=== PATIENT | female | born 1955 | race Caucasian/White ===

== ENCOUNTER 2021-05-01 09:23 | Outpatient (CLI) | payer OTHER, SELFPAY ==
[2021-05-01 19:55] LABS: Hematocrit 42.2 % (37.0-47.0); Hemoglobin 13.5 g/dL (12.0-15.0); Mean Corpuscular Hemoglobin 29.8 pg (26-34); Mean Corpuscular Volume 93.2 fl (80-100); Mean Platelet Volume 9.5 fl (7.4-10.4); Platelet Count Result 363 k/mm3 (150-375); Red Blood Count 4.53 M/mm3 (4.2-5.4); Red Cell Distribution Width 13.5 % (11.5-14.5); White Blood Count 7.9 K/mm3 (4.5-10.0)
[2021-05-01 20:17] LABS: Alanine Aminotransferase 17 U/L (4-35); Albumin Level 4.5 g/dL (3.5-5.1); Alkaline Phosphatase 90 U/L (38-126); Anion Gap 10 mmol/L (8-16); Aspartate Amino Transferase 24 U/L (14-36); Bilirubin,Total 0.5 mg/dL (0.2-1.3); Blood Urea Nitrogen 15 mg/dL (7-17); Calcium 9.6 mg/dL (8.4-10.2); Carbon Dioxide 28 mmol/L (22-30); Chloride 104 mmol/L (98-107); Estimated Glomerular Filt Rate > 60; Glucose 108 mg/dL (65-110); Sodium 142 mmol/L (137-145)
== END 2021-05-01 09:24 | disposition home or self-care (01) ==
PROVIDERS: PCP Family Medicine; Visit Provider Family Medicine
DX: I34.0 Nonrheumatic mitral (valve) insufficiency (principal); Z12.39 Encounter for other screening for malignant neoplasm of breast; E78.5 Hyperlipidemia, unspecified
CPT/HCPCS: 36415; 80053; 85027

== ENCOUNTER 2021-05-21 11:30 | Outpatient (CLI) | payer OTHER, SELFPAY ==
[2021-05-21 20:29] LABS: Cholesterol 224 mg/dL (0-200); HDL Direct 67 mg/dL; Triglycerides 144 mg/dL (<150)
[2021-05-21 20:39] LABS: LDL Cholesterol Direct 125 mg/dL
== END 2021-05-21 11:31 | disposition home or self-care (01) ==
PROVIDERS: PCP Family Medicine; Visit Provider Family Medicine
DX: E78.5 Hyperlipidemia, unspecified (principal); I34.0 Nonrheumatic mitral (valve) insufficiency; Z12.39 Encounter for other screening for malignant neoplasm of breast; Z13.220 Encounter for screening for lipoid disorders
CPT/HCPCS: 36415; 80061

== ENCOUNTER 2021-06-21 07:34 | Outpatient (CLI) | payer OTHER, SELFPAY ==
--- NOTE | 2021-06-21 07:37 | ECHO_ITS ---
Patient Info Name: Maria E Key Age: 66 years : 1955 Gender: Female Ht: 61 in Wt: 132 lbs BSA: 1.62 m2 HR: 58 bpm BP: 135 / 77 mmHg Technical Quality: Good Exam Date: 06/21/2021 7:44 AM Exam Location: [facility] Pul[facility] Patient Status: Outpatient Admit Date: 06/21/2021 Staff Ordering Physician: Crow Soliz DO Finish Mill Operator: Arminda Bergman RDCS Attending Provider: Crow Soliz DO Referring Physician: Martínez QUINTANA; Exam Type: CA echo doppler color flow Study Info Indications I34.0 - Nonrheumatic mitral (valve) insufficiency Complete two-dimensional, color flow and Doppler transthoracic echocardiogram is performed. Summary 1. Complete two-dimensional, color flow and Doppler transthoracic echocardiogram is performed. 2. Left ventricular chamber dimension is normal. 3. Left ventricular systolic function is normal, estimated at 60-65%. 4. The left ventricular diastolic function is grade I diastolic dysfunction. 5. E/e' 13 is mildly elevated. 6. Global longitudinal strain is normal at -21.5%. 7. Left atrial chamber dimension is mildly enlarged. 8. There is trace mitral valve regurgitation. 9. No pulmonary hypertension, estimated pulmonary arterial systolic pressure is 27 mmHg. Left Ventricle E/e' 13 is mildly elevated. Global longitudinal strain is normal at -21.5%. Left ventricular chamber dimension is normal. Left ventricular systolic function is normal, estimated at 60-65%. The left ventricular diastolic function is grade I diastolic dysfunction. Right Ventricle Right ventricular chamber dimension is normal. Right ventricular systolic function is normal. Left Atria Left atrial chamber dimension is mildly enlarged. Right Atria Right atrial chamber dimension is normal. Aortic Valve The aortic valve is trileaflet. There is no aortic valve stenosis. There is no aortic valve regurgitation. Pulmonic Valve There is no pulmonic regurgitation. Mitral Valve There is no mitral valve stenosis. There is trace mitral valve regurgitation. Tricuspid Valve There is no tricuspid valve regurgitation. No pulmonary hypertension, estimated pulmonary arterial systolic pressure is 27 mmHg. Pericardium/Pleural There is no pericardial effusion. Inferior Vena Cava Normal inferior vena cava with >50% collapse upon inspiration consistent with normal right atrial pressure, 5 mmHg. Aorta The aortic root size at the sinus of Valsalva is normal. Left Ventricular Outflow Tract Name Value Normal LVOT 2D LVOT Diameter 2.0 cm LVOT Doppler LVOT Peak Gradient 3 mmHg LVOT Mean Gradient 2 mmHg LVOT VTI 24 cm LVOT VTI/AV VTI Ratio 1.0 LVOT Stroke Volume 76 ml LVOT CO 4.4 l/min LVOT CI 2.7 l/min/m2 Pulmonic Valve Name Value Normal
== END 2021-06-21 07:35 | disposition home or self-care (01) ==
LOC: ANHCARD 07:35
PROVIDERS: PCP Family Medicine; Visit Provider Internal Medicine Cardiovascular Disease
DX: I34.0 Nonrheumatic mitral (valve) insufficiency (principal)
CPT/HCPCS: 93306

== ENCOUNTER 2021-10-29 08:55 | Outpatient (CLI) | payer OTHER, SELFPAY ==
[2021-10-29 19:01] LABS: Hematocrit 41.4 % (37.0-47.0); Hemoglobin 13.2 g/dL (12.0-15.0); Mean Corpuscular HGB Conc 31.9 g/dl (32-36); Mean Corpuscular Hemoglobin 29.3 pg (26-34); Mean Corpuscular Volume 91.8 fl (80-100); Mean Platelet Volume 9.4 fl (7.4-10.4); Platelet Count Result 356 k/mm3 (150-375); Red Blood Count 4.51 M/mm3 (4.2-5.4); Red Cell Distribution Width 13.5 % (11.5-14.5)
[2021-10-29 19:05] LABS: Alanine Aminotransferase 17 U/L (4-35); Albumin Level 4.4 g/dL (3.5-5.1); Alkaline Phosphatase 78 U/L (38-126); Anion Gap 6 mmol/L (8-16); Aspartate Amino Transferase 23 U/L (14-36); Bilirubin,Total 0.3 mg/dL (0.2-1.3); Blood Urea Nitrogen 18 mg/dL (7-17); Calcium 9.3 mg/dL (8.4-10.2); Carbon Dioxide 30 mmol/L (22-30); Chloride 103 mmol/L (98-107); Cholesterol 237 mg/dL (0-200); Estimated Glomerular Filt Rate > 60; Glucose 114 mg/dL (65-110); HDL Direct 64 mg/dL; Sodium 139 mmol/L (137-145); Triglycerides 109 mg/dL (<150)
[2021-10-29 19:16] LABS: LDL Cholesterol Direct 125 mg/dL
== END 2021-10-29 08:56 | disposition home or self-care (01) ==
LOC: ANHBWCLAB 08:57
PROVIDERS: PCP Family Medicine; Visit Provider Family Medicine
DX: E78.5 Hyperlipidemia, unspecified (principal); I34.0 Nonrheumatic mitral (valve) insufficiency; Z00.00 Encounter for general adult medical examination without abnormal findings
CPT/HCPCS: 36415; 80053; 80061; 85027

== ENCOUNTER → 2022-02-04 11:22 | Outpatient (CLI) | payer OTHER, SELFPAY ==
--- NOTE | ~2022-02-04 | DEXA_ITS ---
Bone Density Report Name: MEGAN FIERRO Age: 66 Sex: Female Ethnicity: White Date of : 1955 Indication: postmenopausal; screening for osteoporosis; prior fracture; Referring Provider: AUBREE GARCIA Study: Bone densitometry was performed. Exam Date: February 04, 2022 Accession number: [id number] Bone Density: Region BMD T-score Z-score Classification AP Spine (L1-L4) 0.797 -2.3 -0.5 Osteopenia Femoral Neck (Left) 0.680 -1.5 0.0 Osteopenia Total Hip (Left) 0.827 -0.9 0.3 Normal Femoral Neck (Right) 0.704 -1.3 0.2 Osteopenia Total Hip (Right) 0.851 -0.7 0.5 Normal Total Hip Mean 0.839 -0.8 0.4 Normal World Health Organization criteria for BMD impression classify patients as: Normal (T-score at or above -1.0), Osteopenia (T-score between -1.0 and -2.5), or Osteoporosis (T-score at or below -2.5). 10-year Fracture Risk(1): Major Osteoporotic Fracture 15% Hip Fracture 1.7% Reported Risk Factors: [place] (), Neck BMD=0.680, BMI=24.2, previous fracture (1) FRAX(R) Version 3.08. Fracture probability calculated for an untreated patient. Fracture probability may be lower if the patient has received treatment. Clinical Information Provided by Patient: Has had a low trauma fracture Patient maximum height was 61.6 Menopause Age: 50 No regular weight bearing exercise Does not regularly consume dairy products Drinks caffeinated beverages Onset of menses at age 16 Number of children 4 Impression: The patient has low bone mass, based on the Total Spine T-score. The patient has an estimated ten-year risk of hip fracture of 1.7% and an estimated ten-year risk of major fracture of 15%, based on the WHO FRAX algorithm. The patient has risk factors, including: previous fracture. Discussion: BONE DENSITY IS LOW AT ONE OR MORE SKELETAL SITES. This patient's lowest T-score is low at one or more skeletal sites. It meets the World Health Organization's (WHO) criteria for ?low bone mass? (T-score between -1.0 and -2.5). The patient's 10-year risk of fracture as calculated by FRAX is less than the threshold where pharmacological therapy is recommended by the National Osteoporosis Foundation (NOF). However, all treatment decisions require clinical judgment and consideration of individual patient factors, including patient preferences, comorbidities, previous drug use, risk factors not captured in the FRAX model (e.g., frailty, falls, vitamin D deficiency, increased bone turnover, interval significant decline in bone density) and possible under or overestimation of fracture risk by FRAX. The patient should follow a healthful lifestyle (good nutrition with adequate calcium and vitamin D, and appropriate weight-bearing exercise). Follow-Up: Consider repeating this study in 2 to 3 years to reassess this pat
--- NOTE | ~2022-02-04 | MM_ITS ---
EXAMINATION: MM screening regina BI w pavithra HISTORY: Screening mammogram TECHNIQUE: Craniocaudal and mediolateral oblique 3-D tomosynthesis images were obtained and synthetic 2-D images were generated. CAD analysis was submitted and interpreted. COMPARISON: No prior mammogram is available for comparison at this institution. BREAST PARENCHYMAL COMPOSITION: There are scattered areas of fibroglandular density. FINDINGS: There is no evidence of suspicious mass, calcification, or architectural distortion to sugg est malignancy in either breast. There has been no suspicious interval change. IMPRESSION: 1. No mammographic evidence of malignancy. 2. Recommend routine screening mammography in one year. BI-RADS Category 1: Negative Reviewed, dictated and finalized at location A.
== END ==
PROVIDERS: PCP Family Medicine; Visit Provider Family Medicine
DX: Z12.31 Encounter for screening mammogram for malignant neoplasm of breast (principal); Z78.0 Asymptomatic menopausal state; M85.89 Other specified disorders of bone density and structure, multiple sites
CPT/HCPCS: 77063; 77067; 77080

== ENCOUNTER 2022-07-23 11:57 | Outpatient (CLI) | payer OTHER, SELFPAY ==
--- NOTE | ~2022-07-23 | XR_ITS ---
XR knee LT min 4V DATE: 07/23/2022 12:11 INDICATION: Left knee pain TECHNIQUE: 4 views of left knee COMPARISON: None FINDINGS: No fracture or dislocation or joint effusion. Joint spaces are well preserved. No radiopaqu e intra-articular loose body or chondrocalcinosis. There is osteopenia. IMPRESSION: Osteopenia; otherwise negative Reviewed, dictated and finalized at location B. 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
== END 2022-07-23 11:58 | disposition home or self-care (01) ==
LOC: ANHBWCIMG 11:58
PROVIDERS: PCP Family Medicine; Visit Provider Family Medicine
DX: M25.562 Pain in left knee (principal); M85.89 Other specified disorders of bone density and structure, multiple sites
CPT/HCPCS: 73564

== ENCOUNTER 2022-11-04 09:03 | Outpatient (CLI) | payer OTHER, SELFPAY ==
[2022-11-04 19:59] LABS: Basophils Absolute Auto 0.1 K/mm3 (0.0-0.1); Eosinophils Absolute Auto 0.2 K/mm3 (0-0.3); Eosinophils Percent Auto 1.9 % (0-4.4); Hematocrit 43.1 % (37.0-47.0); Hemoglobin 13.7 g/dL (12.0-15.0); Immature Granulocyte Absolute 0.04 K/mm3 (0.00-0.031); Immature Granulocyte Percent A 0.5 % (0-0.5); Lymphocytes Percent Auto 25.7 % (18.3-44.2); Mean Corpuscular HGB Conc 31.8 g/dl (32-36); Mean Corpuscular Hemoglobin 28.9 pg (26-34); Mean Corpuscular Volume 90.9 fl (80-100); Mean Platelet Volume 9.2 fl (7.4-10.4); Monocytes Absolute Auto 0.6 K/mm3 (0.1-0.6); Monocytes Percent Auto 8.2 % (2.6-8.5); Neutrophils Absolute Auto 4.9 K/mm3 (1.3-6.7); Neutrophils Percent Auto 62.7 % (45.5-73.1); Platelet Count Result 360 k/mm3 (150-375); Red Blood Count 4.74 M/mm3 (4.2-5.4); Red Cell Distribution Width 13.8 % (11.5-14.5); White Blood Count 7.8 K/mm3 (4.5-10.0)
[2022-11-04 20:02] LABS: Alanine Aminotransferase 19 U/L (6-35); Albumin Level 4.4 g/dL (3.5-5.1); Alkaline Phosphatase 86 U/L (38-126); Anion Gap 3 mmol/L (8-16); Aspartate Amino Transferase 36 U/L (14-36); Bilirubin,Total 0.5 mg/dL (0.2-1.3); Blood Urea Nitrogen 13 mg/dL (7-17); Calcium 9.2 mg/dL (8.4-10.2); Carbon Dioxide 31 mmol/L (22-30); Chloride 105 mmol/L (98-107); Cholesterol 236 mg/dL (0-200); Estimated Glomerular Filt Rate > 60; Glucose 98 mg/dL (65-110); HDL Direct 64 mg/dL; Potassium 4.2 mmol/L (3.4-5.0); Sodium 139 mmol/L (137-145); Triglycerides 183 mg/dL (<150)
[2022-11-04 20:17] LABS: LDL Cholesterol Direct 122 mg/dL
[2022-11-04 21:32] LABS: Hemoglobin A1C 5.6 % (<5.7)
== END 2022-11-04 09:04 | disposition home or self-care (01) ==
PROVIDERS: PCP Family Medicine; Visit Provider Family Medicine
DX: R00.2 Palpitations (principal); M25.569 Pain in unspecified knee; E78.5 Hyperlipidemia, unspecified; E28.39 Other primary ovarian failure; R73.09 Other abnormal glucose; I34.0 Nonrheumatic mitral (valve) insufficiency
CPT/HCPCS: 36415; 80053; 80061; 83036; 85025

== ENCOUNTER 2022-12-27 09:41 | Outpatient (CLI) | payer OTHER, SELFPAY ==
--- NOTE | 2022-12-27 09:51 | ECHO_ITS ---
Patient Info Name: Maria E Key Age: 67 years : 1955 Gender: Female Ht: 61 in Wt: 134 lbs BSA: 1.63 m2 HR: 67 bpm BP: 128 / 71 mmHg Technical Quality: Good Exam Date: 12/27/2022 10:57 AM Exam Location: [facility] Pulmonary Patient Status: Outpatient Admit Date: 12/27/2022 Staff Ordering Physician: Crow Soliz DO Material Stress Tester: Evon Fischer RDCS Attending Provider: Crow Soliz DO Referring Physician: Martínez QUINTANA; Exam Type: CA echo doppler color flow Study Info Indications I34.0 - Nonrheumatic mitral (valve) insufficiency Complete two-dimensional, color flow and Doppler transthoracic echocardiogram is performed. Summary 1. Complete two-dimensional, color flow and Doppler transthoracic echocardiogram is performed. 2. Left ventricular chamber dimension is normal. 3. Left ventricular systolic function is normal, estimated at 55-60%. 4. The left ventricular diastolic function is grade I diastolic dysfunction. 5. E/e' 10 is mildly elevated. 6. Left atrial chamber dimension is mildly enlarged. 7. There is trace mitral valve regurgitation. 8. There is trace tricuspid valve regurgitation. 9. No pulmonary hypertension, estimated pulmonary arterial systolic pressure is 20 mmHg. Left Ventricle E/e' 10 is mildly elevated. Left ventricular chamber dimension is normal. Left ventricular systolic function is normal, estimated at 55-60%. The left ventricular diastolic function is grade I diastolic dysfunction. Right Ventricle Right ventricular systolic function is normal and with normal TAPSE 2.0 cm. Right ventricular chamber dimension is normal. Left Atria Left atrial chamber dimension is mildly enlarged. Right Atria Right atrial chamber dimension is normal. Aortic Valve The aortic valve is trileaflet. There is no aortic valve stenosis. There is no aortic valve regurgitation. Pulmonic Valve There is no pulmonic regurgitation. Mitral Valve There is no mitral valve stenosis. There is trace mitral valve regurgitation. Tricuspid Valve There is trace tricuspid valve regurgitation. No pulmonary hypertension, estimated pulmonary arterial systolic pressure is 20 mmHg. Pericardium/Pleural There is no pericardial effusion. Inferior Vena Cava Normal inferior vena cava with >50% collapse upon inspiration consistent with normal right atrial pressure, 5 mmHg. Aorta The aortic root size at the sinus of Valsalva is normal. Left Ventricular Outflow Tract Name Value Normal LVOT 2D LVOT Diameter 1.8 cm LVOT Doppler LVOT Peak Gradient 3 mmHg LVOT Mean Gradient 2 mmHg LVOT VTI 20 cm LVOT VTI/AV VTI Ratio 0.7 LVOT Stroke Volume 49 ml Pulmonic Valve Name Value Normal RVOT Doppler RVOT Peak Gradient 1 mmHg PV Doppler
== END 2022-12-27 09:42 | disposition home or self-care (01) ==
LOC: ANHCARD 09:43
PROVIDERS: PCP Family Medicine; Visit Provider Internal Medicine Cardiovascular Disease
DX: I34.0 Nonrheumatic mitral (valve) insufficiency (principal)
CPT/HCPCS: 93306

== ENCOUNTER → 2023-09-23 10:25 | Outpatient (CLI) | payer OTHER, SELFPAY ==
--- NOTE | ~2023-09-23 | MM_ITS ---
EXAMINATION: MM screening regina BI w pavithra HISTORY: Screening mammogram TECHNIQUE: Craniocaudal and mediolateral oblique 3-D tomosynthesis images were obtained and synthetic 2-D images were generated. CAD analysis was submitted and interpreted. COMPARISON: 02/04/2022 bilateral screening mammogram BREAST PARENCHYMAL COMPOSITION: There are scattered areas of fibroglandular density. FINDINGS: There is no evidence of suspicious mass, calcification, or architectural distortion to sugg est malignancy in either breast. There has been no suspicious interval change. IMPRESSION: 1. No mammographic evidence of malignancy. 2. Recommend routine screening mammography in one year. BI-RADS Category 1: Negative Reviewed, dictated and finalized at location A. 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
== END ==
PROVIDERS: PCP Family Medicine; Visit Provider Family Medicine
DX: Z12.31 Encounter for screening mammogram for malignant neoplasm of breast (principal)
CPT/HCPCS: 77063; 77067

== ENCOUNTER 2023-11-11 10:00 | Outpatient (CLI) | payer OTHER, SELFPAY ==
--- NOTE | ~2023-11-11 | XR_ITS ---
EXAMINATION: XR hand LT 2V DATE: 11/11/2023 10:14 INDICATION: Pain at base of left thumb. TECHNIQUE: 2 views of left hand were obtained. COMPARISON: None. FINDINGS: Bone alignment is normal. No fracture. There is severe osteoarthritis of triscaphe joint an d first carpometacarpal joint and mild osteoarthritis of second-fifth distal interphalangeal joints. IMPRESSION: 1. Polyarticular osteoarthritis. Reviewed, dictated and finalized at location E.
[2023-11-11 19:10] LABS: Hematocrit 41.5 % (37.0-47.0); Hemoglobin 12.7 g/dL (12.0-15.0); Mean Corpuscular HGB Conc 30.6 g/dl (32-36); Mean Corpuscular Hemoglobin 28.9 pg (26-34); Mean Corpuscular Volume 94.5 fl (80-100); Mean Platelet Volume 9.6 fl (7.4-10.4); Platelet Count Result 356 k/mm3 (150-375); Red Blood Count 4.39 M/mm3 (4.2-5.4); Red Cell Distribution Width 13.3 % (11.5-14.5); White Blood Count 8.2 K/mm3 (4.5-10.0)
[2023-11-11 19:23] LABS: Alanine Aminotransferase 20 U/L (6-35); Albumin Level 4.2 g/dL (3.5-5.1); Alkaline Phosphatase 63 U/L (38-126); Anion Gap 4 mmol/L (4-12); Aspartate Amino Transferase 47 U/L (14-36); Bilirubin,Total 0.4 mg/dL (0.2-1.3); Blood Urea Nitrogen 18 mg/dL (7-17); Calcium 9.5 mg/dL (8.4-10.2); Carbon Dioxide 31 mmol/L (22-30); Chloride 105 mmol/L (98-107); Cholesterol 261 mg/dL (0-200); Estimated Glomerular Filt Rate > 60; Glucose 106 mg/dL (65-110); HDL Direct 67 mg/dL; Potassium 4.7 mmol/L (3.4-5.0); Sodium 140 mmol/L (137-145); Triglycerides 125 mg/dL (<150)
[2023-11-11 19:35] LABS: LDL Cholesterol Direct 145 mg/dL
== END 2023-11-11 10:01 | disposition home or self-care (01) ==
PROVIDERS: PCP Nurse Practitioner Adult Health; Visit Provider Nurse Practitioner Adult Health
DX: M79.642 Pain in left hand (principal); E78.5 Hyperlipidemia, unspecified; M19.042 Primary osteoarthritis, left hand
CPT/HCPCS: 36415; 73120; 80048; 80061; 80076; 85027

== ENCOUNTER 2023-12-09 08:25 | Outpatient (CLI) | payer OTHER, SELFPAY ==
[2023-12-09 19:00] LABS: Alanine Aminotransferase 21 U/L (6-35); Albumin Level 4.3 g/dL (3.5-5.1); Alkaline Phosphatase 74 U/L (38-126); Anion Gap 3 mmol/L (4-12); Aspartate Amino Transferase 60 U/L (14-36); Bilirubin,Total 0.5 mg/dL (0.2-1.3); Blood Urea Nitrogen 15 mg/dL (7-17); Calcium 9.3 mg/dL (8.4-10.2); Carbon Dioxide 30 mmol/L (22-30); Chloride 102 mmol/L (98-107); Cholesterol 180 mg/dL (0-200); Estimated Glomerular Filt Rate > 60; Glucose 88 mg/dL (65-110); HDL Direct 60 mg/dL; Potassium 4.2 mmol/L (3.4-5.0); Sodium 135 mmol/L (137-145); Triglycerides 195 mg/dL (<150)
[2023-12-09 19:11] LABS: LDL Cholesterol Direct 93 mg/dL
== END 2023-12-09 08:26 | disposition home or self-care (01) ==
PROVIDERS: PCP Nurse Practitioner Adult Health; Visit Provider Internal Medicine Cardiovascular Disease
DX: E78.5 Hyperlipidemia, unspecified (principal)
CPT/HCPCS: 36415; 80053; 80061

== ENCOUNTER 2024-01-19 11:00 | Outpatient (RCR) | payer OTHER, SELFPAY ==
--- NOTE | 2023-12-18 09:49 | OTOPEVAL1 ---
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 She is right handed and retired. She received an injection about 2 weeks ago. Continues to report moderate to severe pain and limited use with gripping and pinching, opening jars, etc. Reported Pain Level Pain Score 3: Self Report Assessment OT Clinical Summary Patient referred to OT with left thumb CMC OA. She presents with intact functional ROM, but persistent pain and functional limitations due to the pain. Today a hand based thumb spica splint was fabricated for the patient for her to wear during ADLs. Active ROM HEP was initiated. Continued follow up indicated for use of modalities, manual therapy, therapeutic exercise, progression of HEP, and continued education on joint protection principles including education on adaptive devices for ADLs. Plan of Care Interventions Therapeutic Exercise,Manual Therapy,Therapeutic Activities,Paraffin OT Services Indicated Yes Treatment Frequency and 1x/week for 5 visits Duration These treatments will address the objective and functional deficits as defined above. The patient will be advanced safely and appropriately in order for the patient to progress towards his/her prior level of function. Additional exercises will be introduced and as well as a comprehensive home exercise program upon discharge, if needed, ?to ensure carryover of functional gains achieved in the clinic. This treatment plan has been reviewed and agreement upon by the patient.
--- NOTE | 2023-12-18 09:49 | OPREHPOC ---
Outpatient Therapy Plan of Care This is a Multidisciplinary Plan of Care that may contain components documented by all disciplines (PT, OT, and ST.) OT Problem 1 OT Problem #1 Knowledge Deficit OT Goal 1 Goal 1. Patient to be independent with instructed materails. Target Visit 5 OT Problem 2 OT Problem #2 Pain OT Goal 1 Goal 1. Patient to report times of 0/10 pain. 2. Patient to be independent with non-medication pain management: paraffin, ROM, rest, etc. Target Visit 5 OT Problem 3 OT Problem #3 Impaired Strength OT Goal 1 Goal 1. Patient to progress to using a rubber band for thumb radial abduction strengthening x10 reps without pain. 2. Patient to progress to using a rubber band for thumb palmar abduction strengthening x10 reps without pain. 3. Patient to progress to being able to use copeland putty for system auditor and pinch strengthening x5 minutes without pain. 4. Patient to progress to gross wrist strengthening with 1 lb. free weight x10 reps without pain. Target Visit 5
--- NOTE | 2024-01-19 11:36 | OTOPDC ---
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 She reports she has been able to use her hand for light tasks without pain. States she has been wearing the thermoplastic brace as well as alternating with a soft one for support. She reports these are helping with keeping her thumb supported with use. Reported Pain Level Pain Score 0: Self Report Additional Pain Score Comments Patient reporting no pain at rest. This improved from experiencing a constant 3/10. She reports she is experiencing less 7/10 pain, but that at times it can get up that high. Assessment OT Clinical Summary Patient referred to OT with left thumb CMC OA. She has made progress since beginning therapy, noting less pain with use and no longer experiencing pain at rest. She states she has been wearing a thumb brace for support and this is helpful. She has been utilizing joint protection techniques and paraffin at home. Reviewed HEP today and she demonstrates excellent understanding of all materials. No further skilled OT indicated at this time. D/C with HEP. Plan of Care OT Services Indicated No
== END 2024-01-19 12:28 | disposition home or self-care (01) ==
LOC: ANHOT 11:00
PROVIDERS: PCP Nurse Practitioner Adult Health; Visit Provider Plastic Surgery
DX: M18.12 Unilateral primary osteoarthritis of first carpometacarpal joint, left hand (principal)
CPT/HCPCS: 97018; 97110; 97140; 97165; L3921

== ENCOUNTER 2024-04-30 07:32 | Outpatient (CLI) | payer OTHER, SELFPAY ==
--- NOTE | ~2024-04-30 | NM_ITS ---
EXAMINATION: NM amy stress w perfusion DATE: 04/30/2024 09:19 INDICATION: Encounter for cardiac exam. TECHNIQUE: Rest images were obtained following intravenous administration of 10.2 mCi Tc99m tetrofosm in (Myoview). The patient was infused intravenously with Lexiscan (Regadenoson). Then, 31.1 mCi Tc99m tetrofosmin (Myoview) was administered intravenously, and stress images were obtained. Data was lilian nstructed into short axis and horizontal and vertical long axis SPECT images. Gated SPECT images were also obtained. COMPARISON: None. FINDINGS: There is no definite reversible or fixed perfusion abnormality to suggest ischemia or infar ction. There is normal left ventricular chamber size, wall motion and ejection fraction. Left ventr icular ejection fraction measures 63%. IMPRESSION: 1. Normal myocardial perfusion at rest and during stress. 2. Left ventricular ejection fraction measuring 63%. Reviewed, dictated and finalized at location B.
--- NOTE | 2024-04-30 07:35 | EST_ITS ---
Patient Info Name: Maria E Key Age: 68 years : 1955 Gender: Female Ht: 61 in Wt: 140 lbs BSA: 1.67 m2 HR: 69 bpm BP: 155 / 74 mmHg Exam Date: 04/30/2024 8:25 AM Exam Location: Echo Lab Patient Status: Outpatient Admit Date: 04/30/2024 Staff Ordering Physician: Crow Soliz DO Attending Provider: Crow Soliz DO Exercise Technologist: Santa Lynn RDCS Exercise Physician: Crow Soliz DO Exam Type: CA stress amy w NM Study Info A regadenoson stress test was performed. Summary 1. 1. Negative lexiscan stress test for ischemic ST changes by ECG criteria. 2. 2. Baseline hypertension. 3. 3. Nuclear scan to follow and will be reported separately. Please correlate with it. 4. 4. Patient informed of the above results. Protocol: Lexiscan Stress ECG Details Stage: REST Duration (min): 4 min : 9 sec HR (bpm): 66 SBP (mmHg): 155 DBP (mmHg): 74 Stage: REST Duration (min): 12 min : 10 sec HR (bpm): 67 SBP (mmHg): 155 DBP (mmHg): 74 Stage: STAGE 1 Duration (min): 1 min : 0 sec HR (bpm): 108 SBP (mmHg): 151 DBP (mmHg): 69 Stage: RECOVERY Duration (min): 1 min : 0 sec HR (bpm): 111 SBP (mmHg): 151 DBP (mmHg): 69 Stage: RECOVERY Duration (min): 2 min : 0 sec HR (bpm): 102 SBP (mmHg): 151 DBP (mmHg): 69 Stage: RECOVERY Duration (min): 3 min : 0 sec HR (bpm): 102 SBP (mmHg): 140 DBP (mmHg): 69 Stage: RECOVERY Duration (min): 3 min : 13 sec HR (bpm): 102 SBP (mmHg): 140 DBP (mmHg): 69 Rest HR: 67 bpm Peak HR: 117 bpm Rest Sys BP: 155 mmHg Peak Sys BP: 151 mmHg Max Pred HR: 153 bpm % Max Pred HR: 76 % Target HR: 130 bpm Max RPP: 17,667 bpm*mmHg Termination Reason: Completed protocol Cardiac Symptoms: Shortness of breath Total Time: 1 min : 0 sec Rest Boudreaux BP: 74 mmHg Peak Boudreaux BP: 69 mmHg Total Dose: 0.4 mg Resting ECG Sinus rhythm. Stress ECG No ST changes. Arrhythmias None. Report Signatures
== END 2024-04-30 07:33 | disposition home or self-care (01) ==
PROVIDERS: PCP Nurse Practitioner Adult Health; Visit Provider Internal Medicine Cardiovascular Disease
DX: Z01.810 Encounter for preprocedural cardiovascular examination (principal)
CPT/HCPCS: 78452; 93017; A9502; J2785

== ENCOUNTER 2024-05-03 08:13 | Outpatient (CLI) | payer OTHER, SELFPAY ==
[2024-05-03 18:25] LABS: Hematocrit 41.7 % (37.0-47.0); Mean Corpuscular HGB Conc 31.2 g/dl (32-36); Mean Corpuscular Hemoglobin 29.5 pg (26-34); Mean Corpuscular Volume 94.8 fl (80-100); Mean Platelet Volume 9.6 fl (7.4-10.4); Platelet Count Result 347 k/mm3 (150-375); Red Cell Distribution Width 13.5 % (11.5-14.5)
[2024-05-03 19:00] LABS: Alanine Aminotransferase 30 U/L (6-35); Albumin Level 4.3 g/dL (3.5-5.1); Alkaline Phosphatase 85 U/L (38-126); Anion Gap 7 mmol/L (4-12); Aspartate Amino Transferase 79 U/L (14-36); Bilirubin,Total 0.3 mg/dL (0.2-1.3); Blood Urea Nitrogen 15 mg/dL (7-17); Calcium 9.5 mg/dL (8.4-10.2); Carbon Dioxide 29 mmol/L (22-30); Chloride 102 mmol/L (98-107); Estimated Glomerular Filt Rate > 60; Glucose 93 mg/dL (65-110); Potassium 4.9 mmol/L (3.4-5.0); Sodium 138 mmol/L (137-145)
== END 2024-05-03 08:14 | disposition home or self-care (01) ==
PROVIDERS: PCP Nurse Practitioner Adult Health; Visit Provider Orthopaedic Surgery
DX: M25.552 Pain in left hip (principal); M70.60 Trochanteric bursitis, unspecified hip; M25.551 Pain in right hip; Z01.818 Encounter for other preprocedural examination
CPT/HCPCS: 36415; 80053; 85027

== ENCOUNTER 2024-08-02 08:23 | Outpatient (CLI) | payer OTHER, SELFPAY ==
[2024-08-02 19:52] LABS: Hematocrit 39.5 % (37.0-47.0); Hemoglobin 12.1 g/dL (12.0-15.0); Mean Corpuscular HGB Conc 30.6 g/dl (32-36); Mean Corpuscular Hemoglobin 28.7 pg (26-34); Mean Corpuscular Volume 93.8 fl (80-100); Mean Platelet Volume 9.5 fl (7.4-10.4); Platelet Count Result 338 k/mm3 (150-375); Red Blood Count 4.21 M/mm3 (4.2-5.4); White Blood Count 6.9 K/mm3 (4.5-10.0)
[2024-08-02 20:47] LABS: Alanine Aminotransferase 21 U/L (6-35); Albumin Level 3.9 g/dL (3.5-5.1); Alkaline Phosphatase 81 U/L (38-126); Anion Gap 2 mmol/L (4-12); Aspartate Amino Transferase 70 U/L (14-36); Bilirubin,Total 0.4 mg/dL (0.2-1.3); Blood Urea Nitrogen 21 mg/dL (7-17); Carbon Dioxide 27 mmol/L (22-30); Chloride 108 mmol/L (98-107); Estimated Glomerular Filt Rate > 60; Glucose 89 mg/dL (65-110); Potassium 4.2 mmol/L (3.4-5.0); Sodium 137 mmol/L (137-145)
--- OUTSIDE RECORDS SUMMARY | 2024-08-08 10:09 | XMS_ITS | Encounter Summary ---
Author Organization [facility] Address [address] [place] [address] Care Team Providers Care Auto Electrical Technician Name Role Phone Donnie Sanon MD Primary Care Provider [phone] Eun Ballesteros Unavailable [phone] Reason for Visit * Auth/Cert (Routine) Specialty Diagnoses / Procedures Referred By Ana t Referred To Contact Diagnoses SVT (supraventricular tachycardia) (HCC) SVT (supraventricular tachycardia) (HCC) [I47.10] Procedures ABLATION SUPRAVENTRICULAR TACHYCARDIA (SVT) 71173 Referral ID Status Reason Start Date Expiration Date Visits Re quested Visits Authorized [id number] 1 1 Encounter Details Date Type Department Care Team (Latest Contact Info) Description 01/16/2024 11:53 AM CDT Anesthesia Event [facility] Electrophysiology Lab [facility] [place] [address] Kiesha Hager MD [address] [facility] [place] [address] Anesthesia Record Procedure Summary Procedure Name Responsible Anesthesiologist Anesthesia Start Time Anesthesia Stop Time ABLATION SUPRAVENTRICULAR TACHYCARDIA (SVT) 60618 Kiesha Hager MD 01/16/24 1153 01/16/24 1425 Events Date Time Event Comment 01/16/2024 0940 1153 An Start 1155 An Start Data 1202 An Induction The patient was reevaluated immediately before moderate or deep sedation use and before anesthesia induction. 1202 Anesthesia Ready 1417 an stop data 1425 Handoff to RN I completed my handoff to the receiving nurse during which we: 1. Patient identified 2. Responsible provider identified 3. Pertinent medical history reviewed 4. Procedure type and surgical course discussed 5. Intraoperative anesthetic management and any significant issues discussed 6. Expectations and concerns for postop period discussed 7. Questions solicited from receiving nurse 8. Patient disposition at the time of handoff: PACU 1425 An Stop Meds Name Total lidocaine (CARDIAC) syringe 2 % 4 mL propofol 934.19 mg phenylephrine 100 mcg/mL 1.28 mg sodium chloride 0.9% infusion 700 mL * Agents Name O2 N2O Air * Blood No blood administrations on file. Lines, Drains, and Airways Type Details Placement Removal RETIRED Surgical Site 11/20/23; 0831; Ri ght; Eye; 07/20/24 (Retired LDA, Removed/Completed by Wandrian with LDA Utility); 1213 (Retired LDA, Removed/Completed by Wandrian with LDA Utility) 11/20/23 0831 by Kinga Valerio RN 07/20/24 1213 by Discharge Provider, Automatic Peripheral IV Placement Date: 01/16/24; Placement Time: 0908; Catheter Size: 20 G; Orientation: Anterior, Left; Location: Forearm; Site Prep: Chlorhexidine; Technique: Anatomical landmarks; Inserted by: COLETTE Martinez; Insertion Attempts: 1; Patient Tolerance: Tolerated well; Removal Date: 01/16/24; Removal Time: 1607; Removal Reason: Discharge 01/16/24 0908 by Josephine Oseguera RN 01/16/24 1607 by Josephine Oseguera RN Venous Sheath Placement Date: 01/16/24; Placement Time: 1231; Hand Hygiene: Yes; Site Prep: Chlorhexidine; Site Prep Agent Dried: Yes; Sterile Barrier Used: Yes; Inserted by: Dr. NINA; Insertion Attempts: 1; Pt Tolerance: Tolerated well; Placement Verification: Blood return, Ultrasound; Removal Date: 01/16/24; Removal Time: 1359 01/16/24 1231 by Radha Cruz RN 01/16/24 1359 by Radha Cruz RN Venous Sheath Placement Date: 01/16/24; Placement Time: 1231; Hand Hygiene: Yes; Site Prep: Chlorhexidine; Site Prep Agent Dried: Yes; Sterile Barrier Used: Yes; Inserted by: Dr. NINA; Insertion Attempts: 1; Pt Tolerance: Tolerated well; Placement Verification: Blood return, Ultrasound; Removal Date: 01/16/24; Removal Time: 1400 01/16/24 1231 by Radha Cruz RN 01/16/24 1400 by Radha Cruz RN Venous Sheath Placement Date: 01/16/24; Placement Time: 1232; Hand Hygiene: Yes; Site Prep: Chlorhexidine; Site Prep Agent Dried: Yes; Sterile Barrier Used: Yes; Inserted by: Dr. NINA; Insertion Attempts: 1; Pt Tolerance: Tolerated well; Placement Verification: Blood return, Ultrasound; Removal Date: 01/16/24; Removal Time: 1400 01/16/24 1232 by Radha Cruz RN 01/16/24 1400 by Radha Cruz RN Venous Sheath Placement Date: 01/16/24; Placement Time: 1233; Hand Hygiene: Yes; Site Prep: Chlorhexidine; Site Prep Agent Dried: Yes; Sterile Barrier Used: Yes; Inserted by: Dr. NINA; Insertion Attempts: 1; Pt Tolerance: Tolerated well; Placement Verification: Blood return, Ultrasound; Removal Date: 01/16/24; Removal Time: 1400 01/16/24 1233 by Radha Cruz RN 01/16/24 1400 by Radha Cruz RN Venous Sheath Placement Date: 01/16/24; Placement Time: 1233; Hand Hygiene: Yes; Site Prep: Chlorhexidine; Site Prep Agent Dried: Yes; Sterile Barrier Used: Yes; Inserted by: Dr. NINA; Insertion Attempts: 1; Pt Tolerance: Tolerated well; Placement Verification: Blood return, Ultrasound; Removal Date: 01/16/24; Removal Time: 1401 01/16/24 1233 by Radha Cruz RN 01/16/24 1401 by Radha Cruz RN documented in this encounter Social History Tobacco Use Types Packs/Day Years Used Date Smoking Tobacco: Former Cigarettes 1 27 1 975 - 2001 Passive Smoke Exposure: Never Smokeless Tobacco: Never Alcohol Use Standard Drinks/Week Comments Yes 1 (1 standard drink = 0.6 oz pur e alcohol) AUDIT-C Answer Date Recorded Q1: How often do you have a drink containing alc ohol? Monthly or less 01/16/2024 Q2: How many drinks containi ng alcohol do you have on a typical day when you are drinking? 1 or 2 01/16/2024 Q3: How often do you have si x or more drinks on one occasion? Less than monthly 01/16/2024 Personal Safety Answer Date Recorded Have you ever been in or are you currently in a harmful physical or emotional relationship or is someone making you feel afraid or unsafe? 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 Gender Identity Not on file Sexual Orientation Not on file documented as of this encounter OR Notes * Anesthesia Postprocedure Evaluation - Xu Weaver MD - 01/18/2024 6:53 AM CDT Patient: Maria E Key Procedure Summary Date: 01/16/24 Room / Location: [facility] EP LAB D / [facility] EP LAB Anesthesia Start: 1153 Anesthesia Stop: 1425 Procedures: ABLATION SUPRAVENTRICULAR TACHYCARDIA (SVT) 22256 ABLATE ADDTN'L ARRHYTHMIA, ATRIAL OR VENTRICULAR (+) 94058 Diagnosis: SVT (supraventricular tachycardia) (HCC) (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) Providers: Adam Grover MD Responsible Provider: Kiesha Hager MD Anesthesia Type: general/TIVA ASA Status: 3 Anesthesia Type: general/TIVA Last vitals BP 123/73 Pulse 81 Temp 37 ??C (98.6 ??F) (Temporal) Resp 19 SpO2 96% Anesthesia Post Evaluation Patient location during evaluation: PACU Patient participation: complete - patient participated Level of consciousness: follows simple commands and fully awake Pain management: adequate Airway patency: adequate Cardiovascular status: acceptable and hemodynamically stable Respiratory status: acceptable Hydration status: acceptable Pt is: normothermic Nausea/Vomiting status: none There were no known notable events for this encounter. * Anesthesia Preprocedure Evaluation - Kiesha Hager MD - 01/16/2024 9:37 AM CDT Images from the original note were not included. Anesthesia Evaluation Maria E Key is a 68 y.o. female ABLATION SUPRAVENTRICULAR TACHYCARDIA (SVT) 74655 Pre-Op Diagnosis Codes: * SVT (supraventricular tachycardia) (HCC) [I47.10] HISTORY Past Medical History Information obtained from: patient and chart. Information obtained during: In Person Neurological Neuro/Psych system: negative Cardiovascular + Hyperlipidemia + Current valvular disease (per patient report MVR) - + Atrial fibrillation/flutter - Pertinent negatives: hypertension ; CAD ; IL ; CABG ; pacemaker/ICD; PVD; DVT/PE; negative for CHF;drug-eluting stent(s) and bare metal stent(s) Respiratory Pertinent negatives: non-smoker Respiratory system: negative Hepatic / Heme Hepatic/Heme system: negative Gastrointestinal GI system: negative Renal / Renal/ system: negative Musculoskeletal/Pain Musculoskeletal/Pain system: negative Endocrine / Other Pertinent negatives: diabetes mellitus and thyroid disease Endocrine/Other system: negative Functional Capacity Functional capacity: 4-6 METs Comments: Can walk 2 blocks, climb 2 flights of stairs w/o CP or SOB. PAT Summary and Plans Cardiac risk classification of planned procedure: low cardiac risk. Preoperative assessment status: complete. Additional comments: Maria E Key is a 68 y.o. female who is being evaluated prior to undergoing a low cardiac risk surgery. Revised Cardiac Risk Index factors are (none) for a total RCRI of 0 out of 6. Functional capacity is 4-6 METs. Obstructive sleep apnea (TANESHA) screening status is STOP-BANG incomplete but suspected to be 0-2 suggesting low risk for TANESHA. Neck circumference pending.. This assessment was performed via telephone. Therefore the physical exam has been deferred to the day of surgery team. The patient was provided with preoperative instructions for their medications. Patient instructions were provided by telephone and electronically sent via [employer]. Patient verbalized understanding of instructions. Blood bank needs for day of procedure: No type and screen needed Pending labs/tests include: None TPAP process complete. Preoperative evaluation performed by Brenda Ryan NP on 11/18/23 at 2:25 PM . 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 No Known Allergies Med List Status: Nurse Complete Set By: Josephine Oseguera RN at 01/16/2024 9:02 AM Taking? Last Dose Start Date End Date Provider ascorbic acid (VITAMIN C ORAL) 01/08/2024 -- -- Laura Mirza MD atorvastatin (LIPITOR) 10 mg tablet 01/08/2024 11/25/23 -- Laura Mirza MD ibuprofen 200 mg tab/cap 01/08/2024 -- -- Laura Mirza MD metoprolol XL (TOPROL-XL) 25 mg extended release tablet 01/08/2024 11/28/23 -- Laura Mirza MD UNABLE TO FIND Unknown -- -- Laura Mirza MD Current Facility-Administered Medications: sodium chloride 0.9% infusion, 50 mL/hr, intravenous, Continuous Social History Tobacco Use Smoking Status Former Current packs/day: 0.00 Average packs/day: 1 pack/day for 27.0 years (27.0 ttl pk-yrs) Types: Cigarettes Start date: 1974 Quit date: 2001 Years since quittin.4 Passive exposure: Never Smokeless Tobacco Never Alcohol Use: Not At Risk (01/16/2024) AUDIT-C Frequency of Alcohol Consumption: Monthly or less Average Number of Drinks: 1 or 2 Frequency of Binge Drinking: Less than monthly Substance and Sexual Activity Drug Use Never Family History Problem Relation Age of Onset Cancer Mother Heart disease Mother COPD Mother COPD Father Cancer Brother No Known Problems Maternal Grandmother No Known Problems Maternal Grandfather No Known Problems Paternal Grandmother No Known Problems Paternal Grandfather Crohn's disease Daughter No Known Problems Son No Known Problems Mother's Sister No Known Problems Mother's Brother No Known Problems Father's Sister No Known Problems Father's Brother Anesthesia problems Neg Hx Malig Hyperthermia Neg Hx Pseudochol deficiency Neg Hx Vitals: 01/16/24 0910 BP: 163/74 Pulse: 66 Resp: 20 Temp: 37 ??C (98.6 ??F) SpO2: 98% PT: No results found for requested labs within last 30 days. INR: No results found for requested labs within last 30 days. APTT: No results found for requested labs within last 30 days. Hgb A1C: No results found for requested labs within last 30 days. CBC RBC: 01/16/2024: 4.65 M/cumm RDW: No results found for requested labs within last 30 days. MCHC: 01/16/2024: 32.4 g/dL MCH: 01/16/2024: 28.8 pg MCV: 01/16/2024: 88.8 fL Hct: 01/16/2024: 41.3 % Hgb: 01/16/2024: 13.4 g/dL WBC: 01/16/2024: 6.9 K/cumm MPV: 01/16/2024: 8.9 fL (L) Platelets: 01/16/2024: 344 K/cumm RDW CV: 01/16/2024: 13.4 % RDW Sd: 01/16/2024: 43.8 fL BMP Glucose: No results found for requested labs within last 30 days. Calcium: No results found for requested labs within last 30 days. Sodium: No results found for requested labs within last 30 days. Potassium: No results found for requested labs within last 30 days. CO2: No results found for requested labs within last 30 days. Chloride: No results found for requested labs within last 30 days. BUN: No results found for requested labs within last 30 days. Creatinine: No results found for requested labs within last 30 days. DOS Physical Exam Medical history, medications, and allergies reviewed. Attestation: This PAT evaluation 01/16/2024. Airway Exam: Mallampati: II Cervical ROM: FROM TM distance: >4 Cardiovascular Exam: Rate: regular Rhythm: regular Dental Exam: Otherwise appears intact, appears intact and missing Current state: Patient's current state is cooperative. Anesthesia Plan ASA 3 My patient is approved for the Anesthesia Controlled Medication protocol when under care of a WOOD COATER Planned anesthesia: General/TIVA Induction: Induction: intravenous. Postoperative Plan: No plan for postoperative opioid use. No postoperative mechanical ventilation intended. Patient's planned disposition post procedure is Outpatient. Informed Consent: Discussed plan with WOOD COATER. Anesthesia plan and risks discussed with patient. Plan and Consent Comments: Backup plan is a general anesthetic with or without an endotracheal tube or LMA as required Consent and Attending signature: I and/or my designee have discussed the anesthesia plan, benefits, possible alternatives, parental presence at time of induction (if indicated), and clinically relevant risks that may include dental injury, unintentional awareness, and/or other complications. The patient and/or parent/legal guardian understand, and agree to proceed. All questions answered. documented in this encounter Plan of Treatment Not on file documented as of this encounter Visit Diagnoses Not on filedocumented in this encounter Administered Medications Inactive Administered Medications - up to 3 most recent administrations Medication Order MAR Action Action Date Dose Rate Site lidocaine (cardiac) (XYLOCAINE) preservative free injection intravenous, As needed, Starting on Fri01/16/24 at 1200, Anesthesia Intra-op, Indications: Ventricular ArrhythmiasIndications :Ventricular Arrhythmias Given 01/16/2024 12:00 PM CDT 4 mL phenylephrine (DANIELLA-SYNEPHRINE) 1 mg/10 mL (100 mcg/mL) in sodium chloride 0.9% (premix) intravenous, Continuous PRN, Starting on Fri01/16/24 at 1202, Anesthesia Intra-op Rate/Dose Change 01/16/2024 12:30 PM CDT 0.2 mcg/kg/min 7.296 mL/hr New Bag 01/16/2024 12:02 PM CDT 0.1 mcg/kg/min 3.648 mL /hr propofoL (DIPRIVAN) 10 mg/mL IV intravenous, Continuous PRN, Starting on Fri01/16/24 at 1202, Anesthesia Intra-op Rate/Dose Change 01/16/2024 12:51 PM CDT 150 mcg/kg/min 54.72 mL/hr Rate/Dose Change 01/16/2024 12:30 PM CDT 125 mcg/kg/min 45 .6 mL/hr New Bag 01/16/2024 12:02 PM CDT 80 mcg/kg/min 29.184 mL /hr sodium chloride 0.9% infusion 50 mL/hr, intravenous, Continuous, Starting on Fri01/16/24 at 0945, Pre-Procedure (CV) Restarted 01/16/2024 2:01 PM CDT New Bag 01/16/2024 11:53 AM CDT 50 mL/hr documented in this encounter Care Teams Auto Electrical Technician Relationship Specialty Start Date End Date Donnie Sanon MD PCP - General Family Practice 06/23/23 Eun Ballesteros PA [address] [place] [address] [place] [id number] Internal Medicine 06/23/23 documented as of this encounter
--- OUTSIDE RECORDS SUMMARY | 2024-08-08 10:09 | XMS_ITS | Encounter Summary ---
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 Name Role Phone Donnie Sanon MD Primary Care Provider [phone] Eun Ballesteros Unavailable [phone] Reason for Visit * Auth/Cert (Routine) Specialty Diagnoses / Procedures Referred By Ana juraez Referred To Contact Diagnoses Consecutive exotropia of right eye Strabismus Consecutive exotropia of right eye [H50.111] Strabismus [H50.9] Procedures ID STRABISMUS RECESSION/RESCJ 2 [id number] MUSC RECESSION - EYE MUSCLE Referral ID Status Reason Start Date Expiration Date Visits Re quested Visits Authorized [id number] 1 1 Encounter Details Date Type Department Care Team (Late st Contact Info) Description 11/20/2023 8:25 AM CDT - 11/20/2023 9:00 AM CDT Surgery [facility] Surgery at [facility] [address] [place] [address] Cristian Lama III, MD [address] [address] RECESSION - EYE MUSCLE Surgery Details Date/Time Status Location OR Service Patient Class Case Class Case Type Trauma Case? 11/20/2023 8:25 AM Posted [facility] Operating Room [place] OR 2 Ophthalmology Outpatient Elective Panel 1 Procedure LRB Anes Op Region Wound Class Comments RECESSION - EYE MUSCLE Right General Eye Class I - Clean Surgeon Surgeon Role Service Panel Cristian Lama III, MD Primary Ophthalmology 1 documented in this encounter Social History Tobacco Use Types Packs/Day Years Used Date Smoking Tobacco: Former Cigarettes 1 27 1 975 - 2001 Passive Smoke Exposure: Never Smokeless Tobacco: Never Tobacco Cessation:Counseling Given: Not Answered Alcohol Use Standard Drinks/Week Comments Yes 1 (1 standard drink = 0.6 oz pur e alcohol) AUDIT-C Answer Date Recorded Q1: How often do you have a drink containing alcohol? Never 11/20/2023 Q2: How many drinks containi ng alcohol do you have on a typical day when you are drinking? Patient does not drink Q3: How often do you have si x or more drinks on one occasion? Never 11/20/2023 Personal Safety Answer Date Recorded Have you ever been in or are you currently in a harmful physical or emotional relationship or is someone making you feel afraid or unsafe? 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 Gender Identity Not on file Sexual Orientation Not on file documented as of this encounter Last Filed Vital Signs Vital Sign Reading Time Taken Comments Blood Pressure 119/61 11/20/2023 9:00 AM CDT Pulse 69 11/20/2023 9:00 AM CDT Temperature 36.3 ??C (97.3 ??F) 11/20/2023 9:00 AM CD T Respiratory Rate 16 11/20/2023 9:00 AM CDT Oxygen Saturation 96% 11/20/2023 9:00 AM CDT Inhaled Oxygen Concentration - - Weight 61.2 kg (135 lb) 11/05/2023 3:48 PM CDT Height 154.9 cm (5' 1 ) 11/05/2023 3:48 PM CDT Body Mass Index 25.51 11/05/2023 3:48 PM CDT documented in this encounter Discharge Instructions * Discharge Instructions* Cristian Lama III, MD - 11/18/2023 6:37 AM CDT EYE MUSCLE SURGERY DISCHARGE INSTRUCTIONS DIAGNOSIS: EYE MISALIGNMENT PROCEDURE: EYE MUSCLE SURGERY ACTIVITY & DIET Your first meal after surgery should be light. Return to regular diet tomorrow. Rest today; increase activity tomorrow as tolerated. Avoid activities that generate debris or dirt for one week. You may shower starting tomorrow MEDICATIONS Continue your usual medications and eye drops. Irut-osa-mzlagai pain medications may be taken as needed for pain TOBRA/DEX ointment: ??-inch ribbon behind the lower eyelid(s) as directed PREDNISOLONE ACETATE drops: 1 drop to the eye(s) as directed. Shake well. COMPRESSES Apply cold packs (gel packs, bag of frozen peas, etc.) to your eye(s) as much as possible today andtomorrow. Place a clean washcloth between your skin and the cold pack. When the cold pack becomes warm, place it in the freezer until it becomes cold again. Do not use the cold pack when you are sleeping. EYE PATCH If you are discharged with a cotton patch over your eye, please remove the patch in the morning. Ifit becomes uncomfortable overnight, you may remove it. There will be a small amount of bloody drainage on the patch. This is normal. FOLLOW UP The first follow up visit is normally in 10-12 weeks after surgery. CALL IF YOU HAVE ANY OF THE FOLLOWING Persistent severe pain Loss of vision (some blurriness of vision is normal in the first few days) Eye ???stuck?? in one position and/or eye does not move Continued eye irritation after 1 month * Attachments The following attachments cannot be sent through Care Everywhere. * MERGED WITH [facility] TO EXCELLENT CARE AFTER SURGERY documented in this encounter Medications at Time of Discharge ascorbic acid (VITAMIN C ORAL)Indications :supplement Take 1 tablet by mouth every morning ibuprofen 200 mg tab/capIndicatio ns:Pain Take 2 tablet/capsule (400 mg total) by mouth as needed for pain 2 tablets UNABLE TO FINDIndications: eye supplement Take by mouth every morning Med Name: Restore Eye Promise- 1 tablet prednisoLONE acetate (PRED FORTE) 1 % ophthalmic suspension Starting the morning after surgery, place one drop in the RIGHT eye 4 times a day and taper as directed by Dr. Lama 5 mL 11/21/2023 01/15/2024 tobramycin-dexAM ETHasone (TOBRADEX) ophthalmic ointment Starting the morning after surgery, place 1/4 inch ribbon behind the lower eyelid of the RIGHT eye twice a day and taper as directed by Dr. Lama 11/20/2023 01/15/2024 documented as of this encounter Discharge Disposition Disposition Code Departure Means Destination Comment s Discharge to home or self care Walk-out documented in this encounter H&P Notes * Cristian Lama III, MD - 11/20/2023 7:10 AM CDT I have reviewed the H&P, examined the patient, and endorse the findings as written. Plan of Care : Based on the above findings, I consider Maria E Key to be an acceptable risk for : Procedure(s): RECESSION - EYE MUSCLE Source Note - Brenda Ryan NP - 11/18/2023 2:21 PM CDT Images from the original note were not included. Center for Preoperative Assessment and Planning Preoperative Evaluation Record Evaluation type/location: [place] [facility] [place] procedure site: [facility] OR Date: 11/18/23 NOTE: This note represents a preoperative evaluation initiated via telephone interview. NO PHYSICALEXAM was performed at the time of initial assessment. A physical exam may be added to this note anddocumented below. Anesthesia Evaluation Maria E Key is a 68 y.o. 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 female who is being evaluated prior to undergoing right eye muscle recession. Past Medical History Information obtained from: patient and chart. Information obtained during: Telephone Visit NOTE: This note represents a preoperative evaluation initiated via virtual (video or telephone) interview. NO PHYSICAL EXAM was performed at the time of initial assessment. A physical exam may be added to this note and documented below. Neurological Pertinent negatives: neuromuscular disease and CVA/stroke Neuro/Psych system: negative Cardiovascular + Current valvular disease (per patient report MVR) - Pertinent negatives: hypertension ; CAD ; NM ; CABG ; atrial fibrillation; pacemaker/ICD; PVD; DVT/PE; negative for CHF; drug-eluting stent(s) and bare metal stent(s) Respiratory Pertinent [...] flights of stairs w/o CP or SOB. Review of Systems Pertinent negatives: productive cough; SOB; recent cold/flu; fever; chest pain; palpitations; orthopnea; PND; previous transfusion; bleeding problems; syncope; dizziness; nausea; diarrhea and abdominal pain PAT Summary and Plans Cardiac risk classification [...] provided by telephone and electronically sent via [employer]. Patient verbalized understanding of instructions. Blood bank needs for day of procedure: No type and screen needed Pending labs/tests include: None TPAP process complete. Preoperative evaluation performed by Brenda Ryan NP on 11/18/23 at 2:25 PM . Patient Active Problem List Diagnosis Date Noted Consecutive exotropia of right eye 11/05/2023 Strabismus 11/05/2023 Palpitations Elevated TSH Past Medical History: Diagnosis Date Mitral valve regurgitation mild Past Surgical History: Procedure Laterality Date EYE SURGERY N/A 1960 TUBAL LIGATION Bilateral 1981 OB History No obstetric history on file. No Known Allergies Med List Status: Nurse Complete Set By: Mariely Gutierrez RN at 11/05/2023 3:54 PM Taking? Last Dose Start Date End Date Provider ascorbic acid (VITAMIN C ORAL) 11/05/2023 -- -- Laura Mirza MD ibuprofen 200 mg tab/cap 11/05/2023 -- -- Laura Mirza MD prednisoLONE acetate (PRED FORTE) 1 % ophthalmic suspension -- 11/21/23 -- Cristian Lama III, MD Starting the morning after surgery, place one drop in the RIGHT eye 4 times a day and taper as directed by Dr. Lama tobramycin-dexAMETHasone (TOBRADEX) ophthalmic ointment -- 11/20/23 -- Cristian Lama III, MD Starting the morning after surgery, place 1/4 inch ribbon behind the lower eyelid of the RIGHT eye twice a day and taper as directed by Dr. Lama UNABLE TO FIND 11/05/2023 -- -- Laura Mirza MD No current facility-administered medications for this encounter. Current Outpatient Medications: ascorbic acid (VITAMIN C ORAL) ibuprofen 200 mg tab/cap UNABLE TO FIND [START ON 11/21/2023] prednisoLONE acetate (PRED FORTE) 1 % ophthalmic suspension [START ON 11/20/2023] tobramycin-dexAMETHasone (TOBRADEX) ophthalmic ointment Social History Tobacco Use Smoking Status Former Current packs/day: 0.00 Average packs/day: 1 pack/day for 27.0 years (27.0 ttl pk-yrs) Types: Cigarettes Start date: 1974 Quit date: 2001 Years since quittin.2 Passive exposure: Never Smokeless Tobacco Never Alcohol Use: Not At Risk (11/05/2023) AUDIT-C Frequency of Alcohol Consumption: 2-4 times a month Average Number of Drinks: 1 or 2 Frequency of Binge Drinking: Never Substance and Sexual Activity Drug Use Never [...] Hyperthermia Neg Hx Pseudochol deficiency Neg Hx There were no vitals filed for this visit. Qing index score: 100 documented in this encounter Miscellaneous Notes * Op Note - Cristian Lama III, MD - 11/20/2023 8:27 AM CDT PREOPERATIVE DIAGNOSIS: 1. 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 Consecutive right exotropia 3. Diplopia POSTOPERATIVE DIAGNOSIS: 1. 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 Consecutive right exotropia 3. Diplopia 4. Prior recession of right medial rectus muscle, 7 mm, with supraplacement 5. Prior resection of right lateral rectus muscle, with infraplacement SURGEON: Cristian Lama III, MD LEATHER SORTER: None PROCEDURE PERFORMED: Right medial rectus exploration, lysis of adhesions, and advancement 7 mm Right lateral rectus exploration, lysis of adhesions, and recession 9 mm ANESTHESIA: General COMPLICATIONS: None. DESCRIPTION OF PROCEDURE: The patient was brought to the operating suite where the surgical, nursing and anesthesia teams all identified themselves as well as the procedure to be performed. Everybodywas in agreement. Appropriate monitoring devices were placed and the patient underwent induction for general anesthesia. The upper face, lids, and ocular surface was prepped and draped in the usual st erile fashion for eye surgery including the placement of Betadine in the conjunctival fornices. Antibiotic ointment was applied liberally to the entire corneal surface. At that time, we took an appropriate timeout or pause for safety to review the procedure to be performed and the eye to be operated. A lid speculum was placed in the right eye. Forced ductions revealed mild to moderate restriction to passive adduction. Conjunctival forceps and Mago scissors were used to create a conjunctival flap over the medial rectus muscle. Scarring from prior surgery was lysed bluntly and sharply using Mago scissors. The medial rectus was isolated using a Greg muscle hook and found to be recessed 7 mm from the original anatomic insertion and supraplaced. The muscle was carefully freed from surrounding scar tissue. Hemostasis was achieved using light bipolar electrocautery. A 6-0 vicryl suture was woven across the muscle near its scleral attachment held in place with two locking bites on eit her side. The muscle was disinserted from the globe and advanced by 7 mm and reattached to the to the sclera even with and still supraplaced with respect to the original anatomic insertion using partial-thickness scleral bites in a crossed swords fashion. The conjunctiva was closed with interrupted 8-0 Vicryl sutures. Attention was then turned to the lateral rectus muscle. Conjunctival forceps and Mago scissors were used to create a conjunctival flap over the right lateral rectus muscle. Scarring from prior surgery was lysed bluntly and sharply using Mago scissors. The lateral rectus was isolated using a [place] muscle hook and found to be infraplaced with respect to the original anatomic insertion. The muscle was carefully freed from surrounding scar tissue. Hemostasis was achieved using light bipolar electrocautery. A 6-0 vicryl suture was passed acrossthe insertion of the muscle and held in place with two locking bites. The muscle was disinserted from the globe and from the inferior oblique tendon using a Bañuelos tenotomy hook. The muscle was reattached such that it was recessed 9 mm posterior and still infraplaced with respect to the original insertion and tied into place. The conjunctiva was closed with interrupted 8-0 Vicryl sutures. 0.75% Bupivacaine was injected subconjunctivally. Antibiotic ointment was applied to the eye. The patient was awakened from general anesthesia without complication and was discharged to the post-anesthesia recovery area in good condition. ATTESTATION: I was present for the entire procedure and directly participated in the surgery. Cristian Lama III, MD 11/20/2023 8:56 AM * Pre-Procedure Instructions - Brenda Ryan, UX ARCHITECT - 11/18/2023 2:27 PM CDT Center for Preoperative Assessment and Planning CPAP Clinic Location: [facility] The night before your surgery: * Do not eat anything after midnight the night before your procedure. The morning of your surgery: * You may have clear liquids on your surgery day. You must stop drinking two hours before you arrive to the surgery facility. Acceptable clear liquids include water, clear sports drinks, black coffee, or clear soda. DO NOT drink any milk, creamer, or alcohol. * Your surgeon's office may have provided additional instructions or restrictions. Please follow those instructions. * You may brush your teeth and rinse your mouth out. * Do not glue your dentures. * Do not wear jewelry, body piercings, makeup, hairpins, false eyelashes or contact lenses to the hospital. * Leave any valuables at home or with your family. * If you have an implantable device with a remote, bring the remote with you on the day of surgery. Outpatient Surgery: * You must have a responsible adult drive you home and stay with you for 24 hours after your surgery * You cannot be alone at home or in a hotel * Please call your surgeon's office if you do not have someone to drive you home and/or stay with you after surgery * Please bring any items you may need to spend the night in the hospital. Sometimes patients need to be cared for in the hospital overnight. Instructions For Your Medications: Pre-Surgery Instructions: Medication Instructions ascorbic acid (VITAMIN C ORAL) Don't take on day of surgery ibuprofen 200 mg tab/cap Stop taking 5 days prior to surgery Eye restore Stop taking 1 week prior to surgery [START ON 11/21/2023] prednisoLONE acetate (PRED FORTE) 1 % ophthalmic suspension Per surgeon's instructions [START ON 11/20/2023] tobramycin-dexAMETHasone (TOBRADEX) ophthalmic ointment Per surgeon's instructions General Instructions For Medications: * Stop all of these medications 5 days prior to your surgery: excedrin, motrin, advil, ibuprofen, aleve, naproxen, meloxicam, celebrex, celecoxib. For medications that you are instructed to take on the morning of surgery, take the medications with a few sips of water. Stop all of these medications 7-14 days prior to your surgery: Vitamin E, Herbal medicines, Diet Pills If you have pain, you may take tylenol (acetaminophen). Do not take more than 6 tablets or 3000 mg (3 g) within a 24 period. Call your surgeon and the CPAP clinic if any of the following happens before surgery: Any changes in your health You have a fever You have any signs of an infection (chest, urinary tract or tooth) You have been to the Emergency Room or were in the hospital You have started taking any new medications You have questions about a bowel prep or special diet before surgery You have symptoms of COVID-19 such as a new or worsening cough, shortness of breath, fever, body aches, loss of taste or smell, diarrhea or vomiting, or sore throat. You have a household contact with COVID-19. You test positive for COVID-19. * Perioperative Nursing Note - Mariely Gutierrez RN - 11/05/2023 3:56 PM CDT Center for Preoperative Assessment and Planning Perioperative Nursing Note Telephone Preoperative Evaluation ([facility]GED WITH [facility]) - TELEPHONE ONLY, NO PHYSICAL EXAM Date: 11/05/23 This assessment was completed with the patient. Vitals: 11/05/23 1548 Weight: 61.2 kg (135 lb) Height: 154.9 cm (5' 1 ) CHEST CIRCUMFERENCE: N/A Social History Tobacco Use Smoking Status Former Current packs/day: 0.00 Average packs/day: 1 pack/day for 27.0 years (27.0 ttl pk-yrs) Types: Cigarettes Start date: 1974 Quit date: 2001 Years since quittin.2 Passive exposure: Never Smokeless Tobacco Never Substance and Sexual Activity Drug Use Never Alcohol Use Q1: How often do you have a drink containing alcohol?: 2-4 times a month Q2: How many drinks containing alcohol do you have on a typical day when you are drinking?: 1 or 2 Q3: How often do you have six or more drinks on one occasion?: Never Outpatient Medications Marked as Taking for the 11/20/23 encounter (Hospital Encounter) Medication Sig Dispense Refill ascorbic acid (VITAMIN C ORAL) Take 1 tablet by mouth every morning ibuprofen 200 mg tab/cap Take 2 tablet/capsule (400 mg total) by mouth as needed for pain 2 tablets UNABLE TO FIND Take by mouth every morning Med Name: Restore Eye Promise- 1 tablet Implants No active implants to display in this view. 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 Needs Communication Barriers: Visual Communication Needs: Contacts, Glasses Assistive Devices/DME: Eyeglasses, Contacts Hearing - Right Ear: Functional Hearing - Left Ear: Functional Discharge Planning Type of Residence: Private residence Living Arrangements: Spouse/significant other Support Systems: Spouse/significant other Patient expects to be discharged to:: Private residence (, 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 Arrival time and surgical time will be provided to the patient by their surgeon. You should wear clothing that is clean, loose, comfortable and easy to get in and out of on the dayof surgery. You should remove nail coverings, artificial nails and nail japanese prior to the day of surgery. You should leave your valuables and any jewelry at home. No metal or piercings are allowed in the operating room. You should bring your insurance card, a photo ID (example: Offbearer's License) and a method of payment for any insurance copay, deductible or copay for discharge medications. You should bring a complete, up-to-date, list of all your medications on the day of surgery, including any over the counter medications or supplements you may take. Please note on your medication list, the last date & time you took each medication. The healthcare team, on the day of surgery, will ask for this information. You should bring your Advanced Directive and/or Living Will with you on the day of surgery if you have not verified a copy is already in your Epic Chart. If you are having surgery at [facility], please arrive on the day of surgery with the name and phone number of your local 24 hour pharmacy. Due to evening discharges, your routine pharmacy may be closed. In order to obtain your prescriptions that evening, your surgeon may need to send prescriptions to this pharmacy or have you take prescriptions to this pharmacy when you are discharged. Without this information, you may not be able to obtain your prescriptions that evening. Eye Surgery Process for Patients: Before the surgery, you will be asked to change into a gown. As you get ready for your surgery, your nurse will ask you questions about your medical history andreview your medications with you. An IV will be placed so that we may administer medication to keep you comfortable. You will meet your surgical team. You will be taken by stretcher to the operating room for your surgery. After your surgery, you will come to the recovery area. A Fall Risk band will be placed on your arm to remind you that you are at higher risk for falling after having eye surgery. You may remove this band after 24 hours. Before you leave, your discharge team will review your medications with you and any special instructions. A Guide for Patients Having Surgery: Your Pathway to Excellent Care OUR GOAL IS TO PROVIDE YOU WITH EXCELLENT CARE Use this guide to learn about what you can do before, during and after surgery to help your recovery. You are the most important person on your health care team. By becoming informed and involved, you can contribute to the success of your surgery. If your surgeon's directions are different than those in this guide, talk with your nurse or surgeon to confirm the information. It is important that you understand how to take care of yourself at home after surgery. Be sure to bring this guide with you on the day of surgery and take it home with you after surgery. Write down questions for your nurse or surgeon on the last page of this booklet. Important pages to be reviewed BEFORE surgery: Page 1: QR codes for Surgery Center maps Page 3: Types of Anesthesia Page 5: Tips for the day & night before surgery Page 6: When to stop eating BEFORE surgery and examples of clear liquids Page 7-10: Preventing Infection: Chlorhexidine Gluconate (CHG) Bathing Instructions You may access A Guide for Patients Having Surgery: Your Pathway to Excellent Care by the followinglink: [email or web address] How To Prepare Your Skin For Surgery Below is the Pre-Surgical Bathing Protocol you should follow for your surgery. If your surgeon provides you different bathing instructions, please follow your surgeon's orders. Normal Bathing: Bathe with regular soap the night before and/or day of surgery. Normal Bathing Protocol Bathe with your normal soap the night before and/or the morning of surgery. Wear clean clothes or pajamas to sleep in. After showering DO NOT put on deodorant, hair products, conditioners, lotions, creams, powders, Vaseline or any non-essential products. Remove nail coverings, artificial nails and nail japanese. Place clean linens on your bed the night before surgery. Shaving: You may shave your face, legs and underarms during your evening shower. Avoid shaving on the day of surgery. Travel/Exposure Screening: Travel Screening Have you traveled outside the [place] in the last 6 months?: No Exposure Screening Have you been exposed to anyone who is sick in the last 30 days?: No Have you been exposed to or tested positive for COVID-19 within the last 10 days?: No Infectious Disease Screening Are you having any of the following:: None As of 06/11/2022 any COVID TESTING required for surgery will be set up by your surgeon's office. Please reach out to your surgeon's office if you develop any COVID symptoms, test positive for COVID or are exposed to a COVID positive person. If you have questions, please call the CPAP Staff at [phone], Friday-Friday 8am-4:30pm. All patients should read the below section: COVID 19 Updates & Visitor Policy: Please access [email or web address] for the most updated information. Information on [facility]: Please view [email or web address] (Patient & Visitor Information) for additional details regarding Advanced Directive forms, AWARE, directions, parking information, lodging, Internet access, dining and more. Information on [facility] or [facility] ([facility]): Please view [email or web address] (Patient and Visitor Information) for parking/directions and more. For MyChart information, to activate account or password recovery, please go to [email or web address] or call [phone] (toll-free: [phone]), Fri- Friday 8am-5pm. Information for Suicide Prevention: National Suicide Prevention Lifeline (9-250- 441-TALK (5953)) or call or text 918. Chat resources: [email or web address]. Surgery Times: For patients having surgery @ [facility] or [facility] ([facility]), if your surgeon's office has not notified you of your surgery time by NOON THE BUSINESS DAY BEFORE your surgery, please call [phone] and ask for your surgeon's office Dr. Lama. [facility] ([facility]) does not provide arrival times for the day of surgery or provide the duration of surgery. This information is provided by your surgeon'soffice or by the center where you are having surgery. We appreciate your understanding. 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] Strabismus Unspecified disorder of eye movements Consecutive exotropia of right eye Strabismus Unspecified disorder of eye movements documented in this encounter Admitting Diagnoses Diagnosis Consecutive exotropia of right eye Strabismus Unspecified disorder of eye movements documented in this encounter Administered Medications Inactive Administered Medications - up to 3 most recent administrations Medication Order MAR Action Action Date Dose Rate Site BUPivacaine (MARCAINE) 0.75 % (7.5 mg/mL) preservative free injection As needed, Starting on Ayanna 11/20/23 at 0855, Intra-Op Given 11/20/2023 8:55 AM CDT 4 mL Surgical Site Carrier Fluids for Secondary Infusion - 0.9% Sodium Chloride 30 mL, intravenous, As needed, For priming tubing and/or flushing, Starting on Ayanna 11/20/23 at 0706, Pre-Op, 0-250 ml/hr to flush line after IV infusions when no maintenance IV ordered. Infuse 30mL at the same rate as the secondary infusion. Run as primary IV, not intended for KVO. Lactated Ringer's (LR) infusion 30 mL/hr, intravenous, Continuous, Starting on Ayanna 11/20/23 at 0745, Pre-Op Rate/Dose Change 11/20/2023 8:25 AM CDT 30 mL/hr Rate/Dose Verify 11/20/2023 8:18 AM CDT 30 mL/h r New Bag 11/20/2023 7:15 AM CDT 30 mL/hr 30 mL/hr povidone-iodine (BETADINE PREP) 5 % ophthalmic solution As needed, Starting on Ayanna 11/20/23 at 0829, Intra-Op Given 11/20/2023 8:29 AM CDT 30 mL sodium chloride 0.9% flush 0.5-20 mL 0.5-20 mL, intra-catheter, As needed, line care, Starting on Ayanna 11/20/23 at 0706, Pre-Op, Flush volume based on line type and size. Flush before and after each use. sterile water irrigation As needed, Starting on Ayanna 11/20/23 at 0829, Intra-Op Given 11/20/2023 8:29 AM CDT 500 mL Other (Comment) tetracaine (PF) (ALTACAINE) 0.5 % ophthalmic solution As needed, Starting on Ayanna 11/20/23 at 0830, Intra-Op, Indications: Administration of Corneal AnesthesiaIndications:Adminis tration of Corneal Anesthesia Given 11/20/2023 8:30 AM CDT 2 drops tobramycin-dexAMETHasone (TOBRADEX) 0.3-0.1 % ophthalmic ointment As needed, Starting on Ayanna 11/20/23 at 0830, Intra-Op Given 11/20/2023 8:30 AM CDT 1 Application documented in this encounter Discontinued Medications Medication Sig Discontinue Reason Start Date End Da te metoprolol XL (TOPROL-XL) 25 mg 24 hr tablet Take 1 tablet (25 mg total) by mouth nightly. 09/14/2017 11/05/2023 documented as of this encounter Historical Medications * This list may reflect changes made after this encounter. UNABLE TO FINDIndications:e ye supplement Take by mouth every morning Med Name: Restore Eye Promise- 1 tablet ascorbic acid (VITAMIN C ORAL)Indications: supplement Take 1 tablet by mouth every morning ibuprofen 200 mg tab/capIndication s:Pain Take 2 tablet/capsule (400 mg total) by mouth as needed for pain 2 tablets added in this encounter Active and Recently Administered Medications Times are shown in CDT. Scheduled Medication Order 11/18/2023 11/19/2023 11/20/2023 acetaminophen (TYLENOL) tablet 1,000 mg 1,000 mg, oral, Once, On Ayanna 11/20/23 at 0800, For 1 dose, Pre-Op, Indications: Pre-Emptive Analgesia 0800 (Due) sodium chloride 0.9% flush 0.5-20 mL 0.5-20 mL, intra-catheter, Every 8 hours scheduled, First dose on Ayanna 11/20/23 at 0800, Pre-Op, Flush volume based on line type and size. 0800 (Due) Continuous Medication Order 11/18/2023 11/19/2023 11/20/2023 Lactated Ringer's (LR) infusion 30 mL/hr, intravenous, Continuous, Starting on Ayanna 11/20/23 at 0745, Pre-Op 0715 (New Bag - Prov ider: Tari Alvarenga RN)0818 (Rate/Dose Verify - Provider: Arcenio Casanova CRNA)0825 (Rate/Dose Change - Provider: Arcenio Casanova CRNA)1344 (Due: Stopped) Lactated Ringer's (LR) infusion 30 mL/hr, intravenous, Continuous, Starting on Ayanna 11/20/23 at 0800, Pre-Op 0800 (Due) PRN Medication Order 11/18/2023 11/19/2023 11/20/2023 albuterol 2.5 mg/0.5 mL nebulizer solution 2.5 mg 2.5 mg, nebulization, Once as needed, wheezing, shortness of breath, Starting on Ayanna 11/20/23 at 0728, For 1 dose, Pre-Op, Indications: Bronchospasm Prevention BUPivacaine (MARCAINE) 0.75 % (7.5 mg/mL) preservative free injection (CANCELED) As needed, Starting on Ayanna 11/20/23 at 0855, Intra-Op 0855 (Given - Provid er: Cristian Lama III, MD) Carrier Fluids for Secondary Infusion - 0.9% Sodium Chloride 30 mL, intravenous, As needed, For priming tubing and/or flushing, Starting on Ayanna 11/20/23 at 0706, Pre-Op, 0-250 ml/hr to flush line after IV infusions when no maintenance IV ordered. Infuse 30mL at the same rate as the secondary infusion. Run as primary IV, not intended for KVO. famotidine (PEPCID) tablet 20 mg 20 mg, oral, Once as needed, heartburn, Starting on Ayanna 11/20/23 at 0728, For 1 dose, Pre-Op, Indications: gastroesophageal reflux disease fentaNYL (SUBLIMAZE) preservative free syringe 25 mcg 25 mcg, intravenous, Every 10 min PRN, 1st line for pain, Starting on Ayanna 11/20/23 at 0900, Phase I, Switch to 2nd line analgesic order if pain is uncontrolled or increasing after 2 doses. Notify Anesthesiologist if total PACU dose reaches 100 mcg and pain score 5/10 or more., Indications: Pain fentaNYL (SUBLIMAZE) preservative free syringe 50 mcg 50 mcg, intravenous, Every 10 min PRN, 2nd line for pain, Starting on Ayanna 11/20/23 at 0900, Phase I, May administer 10 mintes after 2nd dose of 1st line analgesic agent for uncontrolled or increasing pain. Revert to 1st line dose if POSS of 3. Notify Anesthesiologist if total PACU dose reaches 100 mcg and pain score 5/10 or more., Indications: Pain hydrALAZINE (APRESOLINE) injection 5 mg 5 mg, intravenous, Administer over 2 Minutes, Every 15 min PRN, high blood pressure, Starting on Ayanna 11/20/23 at 0900, Phase I, Max cumulative dose 20 mg. Dose if systolic BP greater than 180 AND heart rate less than 70. labetaloL (NORMODYNE,TRANDATE) injection 5 mg 5 mg, intravenous, at 30 mL/hr, Administer over 2 Minutes, Every 10 min PRN, high blood pressure, Starting on Ayanna 11/20/23 at 0900, Phase I, Max cumulative dose 20 mg. Dose if systolic blood pressure greater than 180 AND HR greater than 70. lidocaine (PF) (XYLOCAINE) 10 mg/mL (1 %) preservative free injection 2-10 mg 2-10 mg (0.2-1 mL), other, Once as needed, pain with IV placement, Starting on Ayanna 11/20/23 at 0728, For 1 dose, Pre-Op, Administer volume needed to infiltrate IV site. naloxone (NARCAN) 0.4 mg/mL injection 0.04-0.4 mg 0.04-0.4 mg, intravenous, Once as needed, other, excessive sedation/respiratory depression, Starting on Ayanna 11/20/23 at 0900, For 1 dose, Phase I, Dilute 0.4 mg with 9 mL NS (final concentration 0.04 mg/mL). For respiratory depression (respiratory rate less than 6), administer 0.4 mg IVP over 30 seconds. For excessive sedation administer 0.04 mg (1 mL) every 1 minute until desired level of alertness. For IV, administer over 30 seconds., Indications: Opioid Toxicity ondansetron (ZOFRAN) injection 4 mg 4 mg, intravenous, Administer over 2 Minutes, Once as needed, nausea, vomiting, Starting on Ayanna 11/20/23 at 0900, For 1 dose, Phase I, Proceed to prochlorperazine if ondansetron has been given within the last 6 hours. povidone-iodine (BETADINE PREP) 5 % ophthalmic solution (CANCELED) As needed, Starting on Ayanna 11/20/23 at 0829, Intra-Op 0829 (Given - Provid er: Cristian Lama III, MD) prochlorperazine (COMPAZINE) injection 5 mg 5 mg, intravenous, Administer over 2 Minutes, Once as needed, nausea, vomiting, Starting on Ayanna 11/20/23 at 0900, For 2 doses, Phase I, If nausea/vomiting not relieved by ondansetron within 30 minutes or if ondansetron has been given within the last 6 hours. sodium chloride 0.9% flush 0.5-20 mL 0.5-20 mL, intra-catheter, As needed, line care, Starting on Ayanna 11/20/23 at 0706, Pre-Op, Flush volume based on line type and size. Flush before and after each use. sodium chloride 0.9% flush 0.5-20 mL 0.5-20 mL, intra-catheter, As needed, line care, Starting on Ayanna 11/20/23 at 0728, Pre-Op, Flush volume based on line type and size. Flush before and after each use. sterile water irrigation (CANCELED) As needed, Starting on Ayanna 11/20/23 at 0829, Intra-Op 0829 (Given - Provid er: Cristian Lama III, MD - Comment: instrument rinsefacial cleanse at close of case) tetracaine (PF) (ALTACAINE) 0.5 % ophthalmic solution (CANCELED) As needed, Starting on Ayanna 11/20/23 at 0830, Intra-Op, Indications: Administration of Corneal Anesthesia 0830 (Given - Provid er: Cristian Lama III, MD - Comment: prior to prep) tobramycin-dexAMETHasone (TOBRADEX) 0.3-0.1 % ophthalmic ointment (CANCELED) As needed, Starting on Ayanna 11/20/23 at 0830, Intra-Op 0830 (Given - Provid er: Cristian Lama III, MD) documented in this encounter Orders Medications Ordered That Yao ht Not Have Been Administered Count Last Ordered Date First Ordered Date acetaminophen (TYLENOL) tablet 1,000 mg 1 0 11/20/2023 albuterol 2.5 mg/0.5 mL nebu lizer solution 2.5 mg 1 11/20/2023 Carrier Fluids for Secondary Infusion - 0.9% Sodium Chloride 1 11/20/2023 famotidine (PEPCID) tablet 20 mg 1 11/20/19 fentaNYL (SUBLIMAZE) preserv ative free syringe 25 mcg 1 11/20/2023 fentaNYL (SUBLIMAZE) preserv ative free syringe 50 mcg 1 11/20/2023 hydrALAZINE (APRESOLINE) injection 5 mg 1 0 11/20/2023 labetaloL (NORMODYNE,TRANDAT E) injection 5 mg 1 11/20/2023 Lactated Ringer's (LR) infusion 1 lidocaine (PF) (XYLOCAINE) 1 0 mg/mL (1 %) preservative free injection 2-10 mg 1 11/20/2023 naloxone (NARCAN) 0.4 mg/mL injection 0.04-0.4 mg 1 11/20/2023 ondansetron (ZOFRAN) injection 4 mg 1 11/19 prochlorperazine (COMPAZINE) injection 5 mg 1 11/20/2023 sodium chloride 0.9% flush 0.5-20 mL 3 04/11/2023 documented in this encounter Care Teams Material Preparation Worker Relationship Specialty Start Date End Date Donnie Sanon MD PCP - General Family Practice 06/23/23 Eun Ballesteros PA [address] [place] [address] [place] [id number] Internal Medicine 06/23/23 documented as of this encounter
--- OUTSIDE RECORDS SUMMARY | 2024-08-08 10:09 | XMS_ITS | Clinical Summary ---
Author Organization [address] Address [address] [place] [address] JULIO CESAR Hernandez [address] Care Team Providers Care Glass Finisher Name Role Phone Donnie Sanon MD Primary Care Provider [phone] Eun Ballesteros PA Unavailable [phone] Crow Soliz Gifty DO Unavailable [phone] Allergies No known active allergies Medications ibuprofen 200 mg tab/capIndicati ons:Pain Take 2 tablet/capsu le (400 mg total) by mouth as needed for pain 2 tablets Active ascorbic acid (VITAMIN C ORAL)Indication s:supplement Take 1 tablet by mouth every morning Active UNABLE TO FINDIndications :eye supplement Take by mouth every morning Med Name: Restore Eye Promise- 1 tablet Active atorvastatin (LIPITOR) 10 mg tablet Take 1 tablet (10 mg total) by mouth daily 11/25/2023 Active metoprolol XL (TOPROL-XL) 25 mg extended release tablet Take 1 tablet (25 mg total) by mouth daily 11/28/2023 Active Active Problems Problem Noted Date Diagnosed Date SVT (supraventricular tachycardia) 12/24/2023 Consecutive exotropia of right eye 11/05/2023 Strabismus 11/05/2023 Elevated TSH Resolved Problems Problem Noted Date Diagnosed Date Resolved Date Palpitations 12/24/2023 Immunizations Name Administration Dates Next Due Influenza, Quad, Adjuvantated, Intramuscular 09/2022 Influenza, Quadrivalent, Lashawn l Culture-based MDCK, Preservative Free, Antibiotic Free, Intramuscular 05/27/2017 Influenza, Quadrivalent, Hig h Dose, Preservative Free, Intrr 06/23/2022 Influenza, Quadrivalent, Split, Intramuscular ,06/20/2015 Influenza, Quadrivalent, Spl it, Preservative Free, Intramuscular 05/31/2019,06/16/2018 Influenza, Trivalent, Cell C ulture-based MDCK, Preservative Free, Antibiotic Free, Intramuscular 05/28/2017 Influenza, Trivalent, IM (MDV) 06/15/2014 Pneumococcal Polysaccharide PPV23 05/01/2021,08/2013 Tdap 12/16/2013,11/16/2013 Surgical History Surgery Date Site/Laterality Comments EYE SURGERY 08/18/1960 - 08/17/1961 N/A TUBAL LIGATION 08/18/1981 - 08/17/1982 Bilateral Medical History Medical History Date Comments Mitral valve regurgitation mild Family History Medical History Relation Name Comments Cancer Brother Crohn's disease Daughter COPD Father No Known Problems Father's Brother No Known Problems Father's Sister No Known Problems Maternal Grandfather No Known Problems Maternal Grandmother COPD Mother Cancer Mother Heart disease Mother No Known Problems Mother's Brother No Known Problems Mother's Sister No Known Problems Paternal Grandfather No Known Problems Paternal Grandmother No Known Problems Son Anesthesia problems Neg Hx Malig Hyperthermia Neg Hx Pseudochol deficiency Neg Hx Relation Name Status Comments Brother Daughter Father Father's Brother Father's Sister Maternal Grandfather Maternal Grandmother Mother Mother's Brother Mother's Sister Paternal Grandfather Paternal Grandmother Son Social History Tobacco Use Types Packs/Day Years [...] on file 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 Gender Identity Not on file Sexual Orientation Not on file Obstetrics History Last Filed Vital Signs Vital Sign Reading Time Taken Comments Blood Pressure 136/74 02/16/2024 1:28 PM CDT Pulse 63 02/16/2024 1:28 PM CDT Temperature 37 ??C (98.6 ??F) 01/16/2024 9:10 AM CDT Respiratory Rate 19 01/16/2024 2:27 PM CDT Oxygen Saturation 96% 01/16/2024 4:00 PM CDT Inhaled Oxygen Concentration - - Weight 62.6 kg (138 lb) 02/16/2024 1:28 PM CDT Height 154.9 cm (5' 1 ) 02/16/2024 1:28 PM CDT Body Mass Index 26.07 02/16/2024 1:28 PM CDT Plan of Treatment Health Maintenance Due Date Last Done Comments Breast Cancer Screening-Mammogram 1956 Colon Cancer Screening-Colonoscopy 1955 Depression Screening 1956 Hepatitis C Screening 1956 Osteoporosis Screening-Bone Density Scan 1956 Hepatitis B Screening 1974 Zoster Vaccine (1 of 2) 2006 Well Visit 65+ 2021 Pneumococcal vaccine 65+ (2 of 2 - PCV) 05/01/2022 05/01/2021, 08/18/2013 DTaP/Tdap/Td Vaccine (3 - Td or Tdap) 12/17/2023 12/16/2013, 11/16/2013 Covid-19 Vaccine (3 - 2023-2 5 season) 2024 01/19/2021, 12/29/2020 Influenza Vaccine (#1) 2024 , 06/23/2022, 05/31/2019, Additional history exists Fall Risk Assessment 01/15/2025 01/16/2024 Medical Devices Implanted Type Area [employer] Device Identifier Shelf Expiration Date Model / Serial / Lot [employer] Vascade Mvp 6-12fr Venous Closure [id number] - [id number] - [id number] Implanted:Qty: 1 on 01/16/2024 by Adam Grover MD at [facility] [employer] 10/30/2025 800-612C-1 [id number] / [id number] 0A / [id number] [employer] Vascade Mvp 6-12fr Venous Closure [id number] - [id number] - [id number] Implanted:Qty: 1 on 01/16/2024 by Adam Grover MD at [facility] [employer] 07/18/2025 800-612C-1 0U / [id number] / [id number] [employer] Vascade Mvp 6-12fr Venous Closure [id number] - [id number] - [id number] Implanted:Qty: 1 on 01/16/2024 by Adam Grover MD at [facility] [employer] 08/04/2025 800-612C-1 0U / [id number] / [id number] [employer] Device Closure Vascade Od5 Fr Femoral Artery [id number] - [id number] - [id number] Implanted:Qty: 1 on 01/16/2024 by Adam Grover MD at [facility] [employer] 10/21/2025 [id number] 05U / [id number] 11A / [id number] [employer] Device Closure Vascade Od5 Fr Femoral Artery [id number] - [id number] - [id number] Implanted:Qty: 1 on 01/16/2024 by Adam Grover MD at [facility] [employer] 10/26/2025 700-500DX- 05U / [id number] 13A / [id number] Insurance Advance Directives For more information, please contact: [phone] * Full Code (Latest Code Status on File) Date Activated Date Inactivated Comments 09/14/2017 12:16 AM 09/14/2017 1:33 PM * Full Code Date Activated Date Inactivated Comments 09/13/2017 12:43 PM 09/14/2017 12:16 AM Care Teams Glass Finisher Relationship Specialty Start Date End Date Donnie Sanon MD PCP - General Family Practice 06/23/23 Eun Ballesteros PA [address] [place] [address] Internal Medicine 06/23/23 Crow Soliz DO [address] [facility] [address] [place], [place] [id number] Referring Physician Internal Medicine 01/29/24
--- OUTSIDE RECORDS SUMMARY | 2024-08-08 10:09 | XMS_ITS | Encounter Summary ---
Author Organization [facility] Address [address] [place] [address] Phone Care Team Providers Care Diagnostic Sales Specialist Name Role Phone Donnie Sanon MD Primary Care Provider [phone] Eun Ballesteros Unavailable [phone] Encounter Details Date Type Department Care Team (Late st Contact Info) Description 11/05/2023 Telephone [facility] Ophthalmology [address] [facility] [address] [place] [address] Marisela Watt Social History Tobacco Use Types Packs/Day Years Used Date Smoking Tobacco: Former Cigarettes 1 27 1 975 - 2001 Passive Smoke Exposure: Never Smokeless Tobacco: Never Alcohol Use Standard Drinks/Week Comments Yes 1 (1 standard drink = 0.6 oz pur e alcohol) AUDIT-C Answer Date Recorded Q1: How often do you have a drink containing alc ohol? 2-4 times a month 11/05/2023 Q2: How many drinks containi ng alcohol do you have on a typical day when you are drinking? 1 or 2 11/05/2023 Q3: How often do you have si x or more drinks on one occasion? 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 Unable to leave a message. documented in this encounter Plan of Treatment Not on file documented as of this encounter Visit Diagnoses Not on filedocumented in this encounter Care Teams Diagnostic Sales Specialist Relationship Specialty Start Date End Date Donnie Sanon MD PCP - General Family Practice 06/23/23 Eun Ballesteros PA [address] [place] [address] [place] [id number] Internal Medicine 06/23/23 documented as of this encounter
--- OUTSIDE RECORDS SUMMARY | 2024-08-08 10:09 | XMS_ITS | Encounter Summary ---
Author Organization [facility] Address [address] [place] [address] Care Team Providers Care Excavation Laborer Name Role Phone Donnie Sanon MD Primary Care Provider [phone] Eun Ballesteros Unavailable [phone] Reason for Referral * Cardiology (Routine) - Closed Specialty Diagnoses / Procedures Referred By Ana t Referred To Contact Procedures Transthoracic Echo (TTE) Complete W Doppler/CF Laura Mirza MD [address] [phone] Phone: tel: Referral ID Status Reason Start Date Expiration Date Visits Re quested Visits Authorized [id number] Closed 12/19/2023 01/17/2025 1 1 * Cardiology (Routine) - Closed Specialty Diagnoses / Procedures Referred By Contkm t Referred To Contact Procedures Event Monitor Laura Mirza MD [address] [phone] Phone: tel: Referral ID Status Reason Start Date Expiration Date Visits Re quested Visits Authorized [id number] Closed 12/19/2023 01/17/2025 1 1 Encounter Details Date Type Department Care Team (Late st Contact Info) Description 12/19/2023 Orders Only [facility] [address] [address] Laura Mirza MD [address] [phone] Social History Tobacco Use Types Packs/Day Years Used Date Smoking Tobacco: Former Cigarettes 1 1 975 - 2001 Passive Smoke Exposure: [...] on file 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 Gender Identity Not on file Sexual Orientation Not on file documented as of this encounter Plan of Treatment Not on file documented as of this encounter Procedures Procedure Name Priority Date/Time Associated Diagnosis Comments SCANNED LABS Routine 12/09/2023 12:07 PM CDT EVENT MONITOR Routine 12/04/2023 12:04 PM CDT TRANSTHORACIC ECHO (TTE) COMPLETE W DOPPLER/CF Routine 12/27/2022 12:05 PM CDT documented in this encounter Results * Scanned Labs (12/09/2023 12:07 PM CDT) Historical Provider LAB BLOOD ORDERABLES Agatha l Result * Event Monitor (12/04/2023 12:04 PM CDT) Anatomical Region Laterality Modality Other Historical Provider [facility] SANIA SEQUEIRA Final Result * Transthoracic Echo (TTE) Complete W Doppler/CF (12/27/2022 12:05 PM CDT) Anatomical Region Laterality Modality Ultrasound Historical Provider [facility] ECHO PROCEDURES Final Result documented in this encounter Visit Diagnoses Not on filedocumented in this encounter Care Teams Excavation Laborer Relationship Specialty Start Date End Date Donnie Sanon MD PCP - General Family Practice 06/23/23 Eun Ballesteros PA [address] [place] [address] Internal Medicine 06/23/23 documented as of this encounter
--- OUTSIDE RECORDS SUMMARY | 2024-08-08 10:09 | XMS_ITS | Encounter Summary ---
Author Organization [facility] Address [address] [place] [address] Phone Care Team Providers Care Collar Cutter Name Role Phone Donnie Sanon MD Primary Care Provider [phone] Eun Ballesteros Unavailable [phone] Reason for Visit * Reason Comments Strabismus * Consultation (Routine) - Authorized Specialty Diagnoses / Procedures Referred By Ana juarez Referred To Contact Ophthalmology Diagnoses Strabismus Donnie Sanon MD Phone: tel: fax: [place] [address] [place] [address] Phone: tel: fax: Referral ID Status Reason Start Date Expiration Date Visits Requested Visits Authorized [id number] Authorized Specialty Services Required 10/27/2023 10/26/2024 12 12 Encounter Details Date Type Department Care Team (Late st Contact Info) Description 10/30/2023 10:30 AM CDT Office Visit [facility] Ophthalmology [facility] [address] [place] [address] [place] [address] [place] [id number] 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); Strabismus Social History Tobacco Use Types Packs/Day Years Used Date Smoking Tobacco: Former Cigarettes Q uit: 09/13/2001 Smokeless Tobacco: Never Alcohol Use Standard Drinks/Week Comments Yes 1 (1 standard drink = 0.6 oz pur e alcohol) Personal Safety Answer Date Recorded Getting School Help Needed Not on file 08/05 Comments Unknown Sex and Gender Information Value Date Recorded Sex Assigned at Not on file Legal Sex Female 1:34 PM [employer] Gender Identity Not on file Sexual Orientation Not on file documented as of this encounter Progress Notes * Cristian Lama III, MD - 10/30/2023 10:30 AM CDT Patient seen and examined with Adam Carballo MD and agree. Consecutive RXT following eye muscle surgery (likely [facility] for childhood esotropia) at age 6. There is no evidence of myasthenic fatigue, restriction, cranial nerve palsy, or supra- or inter-nuclear gaze abnormality. Angle of deviation too large/incomitant for effective prismatic correction. Strabismus surgery was discussed in detail, including its risks, benefits, and limitations. Questions were answered and strabismus surgical informational brochure was given. 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]- Primary Strabismus Unspecified disorder of eye movements documented in this encounter Orders Outpatient Referral Count Last Ordered Date Fir st Ordered Date AMB REFERRAL TO OPHTHALMOLOGY 1 10/30/2023 documented in this encounter Eye Exam Visual Acuity (Snellen - Linear) Right eye Left eye Dist cc 20/70-2 20/20 Gonioscopy Right eye Left eye Temporal grade 3 grade 3 Nasal grade 3 grade 3 Superior grade 3 grade 3 Inferior grade 3 grade 3 Pupils Dark Light Shape React APD Right eye 3 2 Round Brisk None Left eye 3 2 Round Brisk None Extraocular Movement Right eye Left eye Up gaze 0 0 +1 0 0 0 Right/left gaze 0 -- -2 0 -- 0 Down gaze 0 0 0 0 0 0 Stereo Fly: - [place] 4 Dot Distance: Suppression right eye Strabismus Exam Up gaze: RXT 70 Right gaze: RXT >50 Primary gaze: RXT 70 Left gaze: RXT >50 Down gaze: RXT 70 Right eye Left eye Up gaze 0 0 +1 0 0 0 Right/left gaze 0 -- -2 0 -- 0 Down gaze 0 0 0 0 0 0 Both medials appear recessed. No nystagmus was noted in primary gaze or in eccentric gaze. Saccades and smooth pursuits were normal. There was no EOM or eyelid fatigue with upgaze. No lid twitch. Care Teams Collar Cutter Relationship Specialty Start Date End Date Donnie Sanon MD PCP - General Family Practice 06/23/23 Eun Ballesteros PA [address] [place] [address] Internal Medicine 06/23/23 documented as of this encounter
--- OUTSIDE RECORDS SUMMARY | 2024-08-08 10:09 | XMS_ITS | Encounter Summary ---
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 Name Role Phone Donnie Sanon MD Primary Care Provider [phone] Eun Ballesteros Unavailable [phone] Reason for Visit * Auth/Cert (Routine) Specialty Diagnoses / Procedures Referred By Ana t Referred To Contact Diagnoses SVT (supraventricular tachycardia) (HCC) SVT (supraventricular tachycardia) (HCC) [I47.10] Procedures ABLATION SUPRAVENTRICULAR TACHYCARDIA (SVT) 39879 Referral ID Status Reason Start Date Expiration Date Visits Re quested Visits Authorized [id number] 1 1 Encounter Details Date Type Department Care Team (Latest Contact Info) Description 01/16/2024 8:48 AM CDT - 01/16/2024 4:22 PM CDT Hospital Encounter [facility] [address] [place] [address] Adam Grover MD [address] [facility] [address], [place] [address] SVT (supraventricular tachycardia) (HCC) Discharge Disposition: Discharge to home or self care Social History Tobacco Use Types Packs/Day Years [...] on file 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 Gender Identity Not on file Sexual Orientation Not on file documented as of this encounter Last Filed Vital Signs Vital Sign Reading Time Taken Comments Blood Pressure 123/73 01/16/2024 4:00 PM CDT Pulse 81 01/16/2024 4:00 PM CDT Temperature 37 ??C (98.6 ??F) 01/16/2024 9:10 AM CDT Respiratory Rate 19 01/16/2024 2:27 PM CDT Oxygen Saturation 96% 01/16/2024 4:00 PM CDT Inhaled Oxygen Concentration - - Weight 60.8 kg (134 lb 1.6 oz) 01/16/2024 9:10 A M CDT Height 154.9 cm (5' 1 ) 01/16/2024 9:10 AM CDT Body Mass Index 25.34 01/16/2024 9:10 AM CDT documented in this encounter Discharge Instructions * Discharge Instructions* Josephine Oseguera RN - 01/16/2024 9:14 AM CDT Cardiac Laboratory [facility] [place], [place] [address] [facility] Discharge Instructions---Angiogram MEDICATIONS [] Do not take Metformin or medications containing Metformin (for example: Glucophage, Glyburide orGlucovance) for the next 48 hours. Resume taking your medication on [] Home Medications Returned [x] Discharge Medication Reconciliation Reviewed [] Prescriptions sent home with patient and instructions given for usage [] ANTIBIOTICS What you Should Know Information provided and reviewed. [] Your physician has prescribed Aspirin and an anti-platelet therapy medication such as Plavix, Brilinta, Effient. - These medications act as a blood thinner. Take the medications as your physician has prescribed; this will help prevent a blood clot from forming in your artery. - Do not stop taking these medications for any reason without discussing with your butt sawyer first. - These medications may make you bruise or bleed easier than normal. PROCEDURE SITE CARE [x] You may shower in 24 hours. Remove the bandage prior to showering. [x] DO NOT submerge your incision site in water. This includes pools, tub baths, lakes, siddiqui, ponds and hot tubs. You may shower only for the next 5 days (no baths). [x] Gently clean the procedure site using only soap and water. [x] DO NOT apply any kind of powder or lotion to the site [x] Make sure to dry the site thoroughly as wetness can lead to infection. DIET [x] Increase your intake of fluids (non-alcoholic). Drink 1/2 liter of fluids over the next 12 hours. [x] Resume home diet [] Special diet Instructed by Vertical Mill Operator ACTIVITY You have been given medications which helped make you comfortable during your procedure. The relaxing effects of these medications may continue for the rest of the day. For your safety: [x] Do not drive or operate hazardous machinery for the next 24 hours [x] Do not make important personal or business decision or sign legal documentation for the next 24hours. [x] Resume normal activity in 5 days. [x] No heavy pushing, pulling, or lifting more than 10 pounds for the next five days or until the procedure site has been healed. [x] Refrain from vigorous stair climbing or walking more than two blocks for the next five days. [x] No sexual activity for the next five days. SPECIAL INSTRUCTIONS After your procedure, it is normal to have mild soreness/tenderness at the procedure site. Some discoloration and /or bruising may occur at the puncture site region over the next 2-3 days Please notify your physician immediately if you develop any of the following: [x] Significant bleeding at the procedure site. If bleeding occurs, lie down, apply firm pressure to the site and call 911. [x] The leg on which your procedure was performed begins to swell, feel numb, weak or cold [x] Signs of infection which may include: - fever or chills - drainage from the procedure site - redness/warm to the touch at the procedure site [x] You start having signs of a heart attack which may include: - pain in your chest, arms, jaw or back -trouble catching your breath -feeling sick to your stomach -feeling sweaty FOLLOW UP CARE [x] Call physician's office for appointment [] Appointment scheduled for with Additional Instructions: I understand and have received a copy of my discharge instructions Patient/Family Signature: Staff Signature/Title: Date and Time: documented in this encounter Medications at Time of Discharge ascorbic acid (VITAMIN C ORAL)Indications: supplement Take 1 tablet by mouth every morning atorvastatin (LIPITOR) 10 mg tablet Take 1 tablet (10 mg total) by mouth daily 11/25/2023 ibuprofen 200 mg tab/capIndication s:Pain Take 2 tablet/capsule (400 mg total) by mouth as needed for pain 2 tablets metoprolol XL (TOPROL-XL) 25 mg extended release tablet Take 1 tablet (25 mg total) by mouth daily 11/28/2023 UNABLE TO FINDIndications:e ye supplement Take by mouth every morning Med Name: Restore Eye Promise- 1 tablet documented as of this encounter Discharge Disposition Disposition Code Departure Means Destination Comment s Discharge to home or self care documented in this encounter H&P Notes * Adam Grover MD - 01/16/2024 11:27 AM CDT I have reviewed the H&P, examined the patient, and endorse the findings as written. Plan of Care : Based on the above findings, I consider Maria E E Yesi to be an acceptable risk for : Procedure(s): ABLATION SUPRAVENTRICULAR TACHYCARDIA (SVT) 03776 Source Note - Adam Grover MD - 12/26/2023 10:30 AM CDT Images from the original note were not included. ARRHYTHMIA CENTER VISIT NOTE Assessment and Plan SVT (supraventricular tachycardia - differential diagnosis includes AV ibeth reentrant tachycardia,orthodromic reciprocating tachycardia involving a concealed accessory pathway, an ectopic atrial tachycardia, or atrial flutter. Patient is currently having multiple symptomatic episodes per week that are significantly impacting her quality of life. The benefits, risks, and alternatives (including pharmacologic options) of an EP study to diagnose the underlying arrhythmia mechanism--along with a possible catheter ablation for definitive treatment--were discussed at length with the patient using the principles of shared decision-making. This included a discussion of anti-arrhythmic medications including class I agents (e.g. flecainide, propafenone), class III agents (e.g. amiodarone, sotalol), and both class II and IV agents (beta-blockers and calcium channel blockers). We reviewed the potentially life-threatening side effects of these medications, including (but not limited to) fatal tachyarrhythmias, pulmonary toxicity, liver toxicity, thyroid disorders. With respect to an EPS, the patient was advised that success rates for ablationof AVNRT and ORT are typically in the range of 95%, with somewhat lower success rates for ablation of other arrhythmias such as ectopic atrial tachycardias. Procedural risks discussed included, but where not limited to, a 1% chance or less of: vascular injury; major bleeding; cardiac perforation; thromboembolic complications including stroke, myocardial infarction, deep venous thrombosis, or pulmonary embolism; and injury to the intrinsic cardiac conduction system necessitating a permanent pacemaker. The patient demonstrated a clear understanding of these issues during our discussion. All questionswere answered. At this time, she has opted to move forward with an EPS and will be scheduled accordingly. Thank you very much for allowing me to participate in the care of Mrs. Key with you. Please feel free to contact me with any questions or concerns Subjective Chief Complaint Supraventricular tachycardia History of Present Illness Maria E Key is a 68 y.o. female who was seen today in consultation for her supraventricular tachycardia. She recently wore an ambulatory ECG monitor for evaluation of recurrent palpitations associated with lightheadedness and a sensation that her heart was ???racing . She reports that she has had symptoms for years, which have been gradually progressing over time and now occurring several times per week. Her episodes last anywhere from a few minutes to hours at a time. This demonstrated multiple episodes of a regular narrow complex tachycardia at rates in the 170s-190s. Echocardiography earlier this month demonstrated normal biventricular systolic function, LVEF 55-60%, with grade 1 diastolic impairment and mild left atrial enlargement. She is here today to discuss treatment options for her SVT. Objective Physical Exam BP 143/84 Pulse 63 Ht 154.9 cm (5' 0.98 ) Wt 63 kg (139 lb) BMI 26.28 kg/m?? Physical Exam Vitals reviewed. Constitutional: Appearance: Normal appearance. Cardiovascular: Rate and Rhythm: Normal rate and regular rhythm. Pulmonary: Effort: Pulmonary effort is normal. No respiratory distress. Breath sounds: Normal breath sounds. Neurological: General: No focal deficit present. Mental Status: She is alert and oriented to person, place, and time. Psychiatric: Mood and Affect: Mood normal. Behavior: Behavior normal. Diagnostic Data EKG: Sinus rhythm. QTc 419. No ventricular pre-excitation. Nonspecific repolarization abnormalities. EVENT MONITOR: Reviewed and independently interpreted. Recurrent episodes of a regular narrow complex tachycardia at rates in the 170s-190s. Adam Grover MD [facility] Arrhythmia [facility] [facility], [address], [place] [address] documented in this encounter Plan of Treatment Not on file documented as of this encounter Procedures Procedure Name Priority Date/Time Associated Diagnosis Comments ABLATE ADDTL ARRHYTHMIA ATRIA OR VENT Routine 01/16/2024 2:01 PM CDT SVT (supraventricular tachycardia) (HCC) ABLATION SUPRAVENTRICULAR TACHYCARDIA TREATMENT (SVT) Routine 01/16/2024 2:01 PM CDT SVT (supraventricular tachycardia) (HCC) ECG 12-LEAD STAT 01/16/2024 9:20 AM CDT DIFFERENTIAL AUTO Routine 01/16/2024 9:1 0 AM CDT CBC WITH AUTO DIFFERENTIAL Routine 01/16/2024 9:10 AM CDT documented in this encounter Results * ABLATION SUPRAVENTRICULAR TACHYCARDIA TREATMENT (SVT), ABLATE ADDTL ARRHYTHMIA ATRIA OR VENT (01/16/2024 2:01 PM CDT) Anatomical Region Laterality Modality X-Ray Angiograph y Impressions 01/16/2024 2:32 PM CDT Typical atrial flutter Typical AV ibeth reentry tachycardia Successful ablation of the cavotricuspid isthmus with establishment of bidirectional block Successful AV node modification with no evidence of residual dual AV ibeth physiology RECOMMENDATIONS AND FOLLOW-UP: Return to postoperative recovery area with telemetry monitoring. Anticipate discharge to home later today. ?? Follow-up: 6 weeks. Adam Grover MD, [facility] Arrhythmia [facility] [address] [place] [address], [address] [address] Narrative 01/16/2024 2:32 PM CDT Table formatting from the original result was not included. Images from the original result were not included. ELECTROPHYSIOLOGY SERVICES REPORT PRIMARY PROCEDURE(S): Comprehensive electrophysiologic evaluation with ablation treatment for supraventricular tachycardia (55845) ADD-ON PROCEDURE COMPONENTS: Intracardiac catheter ablation of a discrete mechanism of arrhythmia (+12157) INDICATION(S): ??Paroxysmal supraventricular tachycardia ANESTHESIA TYPE: Monitored Anesthesia Care (MAC) CLINICAL HISTORY: Maria E Key is a very pleasant 68 y.o. female with with a history of frequent episodes of paroxysmal supraventricular tachycardia who now presents for a comprehensive electrophysiologic evaluation to determine their arrhythmia mechanism, with a goal of catheter ablation for definitive treatment.. The benefits, risks, and alternatives of the procedure were discussed at length with the patient. Procedural risks discussed, included, but were not limited to: vascular injury, major bleeding, cardiac perforation, thromboembolic complications including pulmonary embolism and stroke, myocardial infarction, and injury to the intrinsic cardiac conduction system necessitating a permanent pacemaker. The patient demonstrated a clear understanding of these issues during our discussion. All questions were answered. DESCRIPTION: After obtaining informed consent, the patient was brought to the EP laboratory in a postabsorptive, nonsedated state. Peripheral IV access was established. Continuous ECG, noninvasive blood pressure monitoring, and pulse oximetry were initiated. Cardioversion patch electrodes were placed on the patient's chest and back. Sedation was administered per Anesthesia Services. The patient was sterilely prepared and draped in the usual manner. Bilateral inguinal access sites were infiltrated with 2% lidocaine. Vascular access was achieved using a micropuncture access needle via the modified Seldinger technique and utilizing ultrasound guidance. ??After placement of venous access sheaths, multipolar catheters were advanced to the right atrium, His bundle recording position, coronary sinus and the right ventricle. The patient arrived in the room in sinus rhythm; however, she went into both typical AV ibeth reentrant tachycardia and typical atrial flutter spontaneously and repeatedly during catheter placement (see ARRHYTHMIAS SUMMARY section). Attention was initially directed towards ablation of the patient's atrial flutter. A contact force sensing-enabled irrigated 3.5 mm tip catheter was introduced into the right atrium via a deflectable sheath. The ablation catheter was positioned along the inferior edge of the tricuspid valve annulus. A linear lesion set was created from the tricuspid annulus to the inferior vena cava using RF applications delivered at power settings of 40 Hanna for up to 20 seconds with a maximum temperature cutoff of 45??C; target contact force was 10-20 grams. Lesion locations were tracked via the electroanatomical mapping system. The presence of bidirectional block across the cavotricuspid isthmus was confirmed by (1) pacing from the proximal portion of the coronary sinus (CS) catheter, which resulted in a qqgjrffl-ob-qsobxt pattern of activation in a duodecapolar catheter (DUO) positioned along the lateral wall of the right atrium along the Cristae Terminal[place], with a proximal-CS to distal-DUO time of 126 ms; (2) pacing from the distal portion of the duodecapolar catheter, which resulted in a doisdx-ra-vvlngfrj pattern of activation in the duodecapolar catheter with a distal-DUO to proximal-CS time of 126 ms; and (3) differential pacing from the right atrial free wall which yielded a double potential interval of 98 ms along the ablation line when pacing at a location proximal to the line and 46 ms when pacing at a location distal to the line. Attention was next directed towards ablation of the patient's AVNRT. A contact force sensing-enabled irrigated 3.5 mm tip catheter was introduced into the right atrium via a deflectable sheath. The ablation catheter was positioned at the presumptive site of the AV ibeth 'slow pathway', anterior to and at the level of the coronary sinus ostium in the inferior aspect of the [place]. ??A localized 3D electroanatomic map of this region was created using the [employer] mapping system. RF application was initiated utilizing power settings of 30 Hanna and a temperature cutoff of 45 ??C; target contact force was 10-20 grams. An accelerated junctional rhythm was observed during RF application. No A:V block was seen during RF application. All lesion locations were tracked via the electroanatomical mapping system. Following delivery of the above lesions, there was no evidence of dual AV ibeth physiology with atrial extrastimuli: specifically, AV ibeth conduction was continuous, and no echoes were seen. Final ??induction attempts included: Incremental atrial overdrive pacing and atrial single-extrastimuli testing at coupling intervals down to 200 ms or atrial refractoriness. No sustained arrhythmias were induced. All venous sheaths were removed and hemostasis was achieved using Vascade closure devices. ??The patient was taken the recovery area in stable condition. CONDUCTION INTERVALS: RR MS QRS QT AH HV Baseline: 727 166 99 341 95 43 Final: 613 163 93 352 104 39 ARRHYTHMIA SUMMARY: Arrhythmia: ??Typical atrial flutter ?? Cycle length: ??235 ms ?? Induction: ??Spontaneous ? Termination: ??Overdrive atrial pacing ?? Comments: ??Centric left atrial activation. Counterclockwise activation along the right atrial free wall. Entrainment from the targeted ablation site yielded a PPI-TCL of 0 ms. Arrhythmia: ??Typical AV ibeth reentrant tachycardia ?? Cycle length: ??356 ms ?? Induction: ??Spontaneous ? Termination: ??Overdrive ventricular pacing ?? Comments: ??Induction dependent upon a critical AH interval. 1:1 A:V relationship with short septal VA time <70 ms. Centric left atrial activation. Entrainment from the RV apex yielded a VAV response with a PPI-TCL of >115 ms. ELECTROANATOMICAL MAPPING SYSTEM: [employer] X VASCULAR ACCESS SUMMARY: ? Right femoral vein: 8 F, 7 F ? Left femoral vein: 5 F, 5 F, 7 F ESTIMATED BLOOD LOSS: <5 cc IODINATED CONTRAST VOLUME: 0 cc FLUOROSCOPY TIME: 0 min FLUOROSCOPY DOSE: 0 Gy? ? cm2 COMPLICATIONS: None. Adam Grover MD CV ELECTROPHYSIOLOGY PRO CS Final Result * ECG 12 lead (01/16/2024 9:20 AM CDT) 01/16/2024 9:20 AM CDT Narrative [facility] - 01/16/2024 12:45 PM CDT Vent Rate: 64 bpm RR Interval: 932 msec MS Interval: 151 msec QRS Duration: 92 msec QT Interval: 430 msec QTC Interval: 439 msec P-R-T [place]: 48 - -33 - -7 degrees IMPRESSION: SINUS RHYTHM LEFT AXIS DEVIATION ??[QRS AXIS < -30] ABNORMAL ECG Electronically Signed By: Justin Raymond MD Adam Grover MD ECG ORDERABLES Final Re sult [facility] * Differential, auto (01/16/2024 9:10 AM CDT) Neutrophil abs 3.5 1.5 - 6.5 K/cumm Imm gran abs 0.0 0.0 - 0.1 K/cumm [facility] Lymphocyte abs 2.4 0.8 - 3.3 K/cumm [facility] Monocyte abs 0.8 0.2 - 0.8 K/cumm [facility] Eosinophil abs 0.1 0.0 - 0.5 K/cumm [facility] Basophil abs 0.1 0.0 - 0.1 K/cumm [facility] Neutrophil pct 50.6 % [facility] Comment: Interpretive Data Percent cell count reference ranges are not reported, since discordance with absolute values may lead to misinterpretation of CBC data. Current Interpretive Data was last revised on 2017. Imm gran pct 0.3 % [facility] Comment: Interpretive Data Percent cell count reference ranges are not reported, since discordance with absolute values may lead to misinterpretation of CBC data. Current Interpretive Data was last revised on 2017. Lymphocyte pct 35.3 % [facility] Comment: Interpretive Data Percent cell count reference ranges are not reported, since discordance with absolute values may lead to misinterpretation of CBC data. Current Interpretive Data was last revised on 2017. Monocyte pct 11.2 % [facility] Comment: Interpretive Data Percent cell count reference ranges are not reported, since discordance with absolute values may lead to misinterpretation of CBC data. Current Interpretive Data was last revised on 2017. Eosinophil pct 1.6 % [facility] Comment: Interpretive Data Percent cell count reference ranges are not reported, since discordance with absolute values may lead to misinterpretation of CBC data. Current Interpretive Data was last revised on 2017. Basophil pct 1.0 % [facility] Comment: Interpretive Data Percent cell count reference ranges are not reported, since discordance with absolute values may lead to misinterpretation of CBC data. Current Interpretive Data was last revised on 2017. Blood 01/16/2024 9:10 AM CDT 01/16/2024 9:17 AM CDT us Adam Grover MD LAB BLOOD ORDERABLES Fin al Result [facility] [address] Department [place] [address] * (ABNORMAL) CBC with auto differential (01/16/2024 9:10 AM CDT) WBC 6.9 3.8 - 9.9 K/cumm Hgb 13.4 11.9 - 15.5 g/dL [facility] Hct 41.3 35.6 - 45.5 % [facility] Plt 344 150 - 400 K/cumm [facility] MPV 8.9(L) 9.1 - 12.[address] [facility] RBC 4.65 3.90 - 5.20 M/cumm [facility] MCV 88.8 81.3 - 96.[address] [facility] MCH 28.8 27.1 - 33.[address] [facility] MCHC 32.4 32.3 - 35.7 g/dL [facility] RDW CV 13.4 11.1 - 14.9 % [facility] RDW SD 43.8 35.7 - 48.[address] [facility] NRBC abs 0.00 0.00 - 0.01 K/cumm [facility] Blood 01/16/2024 9:10 AM CDT 01/16/2024 9:17 AM CDT us Adam Grover MD LAB BLOOD ORDERABLES Fin al Result [facility] [address] Department [place] [address] documented in this encounter Visit Diagnoses Diagnosis SVT (supraventricular tachycardia) (HCC)- Primary Other specified cardiac dysrhythmias SVT (supraventricular tachycardia) (HCC) Other specified cardiac dysrhythmias documented in this encounter Admitting Diagnoses Diagnosis SVT (supraventricular tachycardia) (HCC) Other specified cardiac dysrhythmias documented in this encounter Administered Medications Inactive Administered Medications - up to 3 most recent administrations Medication Order MAR Action Action Date Dose Rate Site sodium chloride 0.9% infusion 50 mL/hr, intravenous, Continuous, Starting on Fri01/16/24 at 0945, Pre-Procedure (CV) Restarted 01/16/2024 2:01 PM CDT New Bag 01/16/2024 11:53 AM CDT 50 mL/hr documented in this encounter Discontinued Medications Medication Sig Discontinue Reason Start Date End Da te prednisoLONE acetate (PRED FORTE) 1 % ophthalmic suspension Starting the morning after surgery, place one drop in the RIGHT eye 4 times a day and taper as directed by Dr. Lama 11/21/2023 01/15/2024 tobramycin-dexAMETHason e (TOBRADEX) ophthalmic ointment Starting the morning after surgery, place 1/4 inch ribbon behind the lower eyelid of the RIGHT eye twice a day and taper as directed by Dr. Lama 11/20/2023 01/15/2024 documented as of this encounter Active and Recently Administered Medications Times are shown in CDT. Scheduled Medication Order 01/14/2024 01/15/2024 01/16/2024 sodium chloride 0.9% flush 0.5-20 mL 0.5-20 mL, intra-catheter, Every 8 hours scheduled, First dose on Fri01/16/24 at 1500, Recovery (CV), Flush volume based on line type and size. 1500 (Due) Continuous Medication Order 01/14/2024 01/15/2024 01/16/2024 sodium chloride 0.9% infusion 50 mL/hr, intravenous, Continuous, Starting on Fri01/16/24 at 0945, Pre-Procedure (CV) 1153 (New Bag - Prov ider: Silverio Price CRNA)1400 (Paused - Provider: Silveiro Price CRNA - Comment: Switch to gravity)1401 (Restarted - Provider: Silverio Price CRNA)2021 (Due: Stopped) PRN Medication Order 01/14/2024 01/15/2024 01/16/2024 Carrier Fluids for Secondary Infusion - 0.9% Sodium Chloride 30 mL, intravenous, As needed, For priming tubing and/or flushing, Starting on Fri01/16/24 at 1416, Recovery (CV), 0-250 ml/hr to flush line after IV infusions when no maintenance IV ordered. Infuse 30mL at the same rate as the secondary infusion. Run as primary IV, not intended for KVO. heparin in 0.9% sodium chloride 2,000 unit/1,000 mL (2 unit/mL) infusion (premix) (CANCELED) Code/trauma/sedation medication, Starting on Fri01/16/24 at 1237, Intra-Procedure (CV) 1237 (Given - Provid er: Adam Grover MD - Comment: back table flush) lidocaine-EPINEPHrine (XYLOCAINE with EPI) 2 %-1:100,000 injection (CANCELED) Code/trauma/sedation medication, Starting on Fri01/16/24 at 1234, Intra-Procedure (CV), Indications: Administration of Local Anesthesia 1234 (Given - Provid er: Adam Grover MD)1234 (Given - Provider: Adam Grover MD) sodium chloride 0.9% flush 0.5-20 mL 0.5-20 mL, intra-catheter, As needed, line care, Starting on Fri01/16/24 at 1416, Recovery (CV), Flush volume based on line type and size. Flush before and after each use. documented in this encounter Orders Medications Ordered That Yao ht Not Have Been Administered Count Last Ordered Date First Ordered Date Carrier Fluids for Secondary Infusion - 0.9% Sodium Chloride 1 01/16/2024 heparin in 0.9% sodium chlor haseeb 2,000 unit/1,000 mL (2 unit/mL) infusion (premix) 1 01/16/2024 lidocaine-EPINEPHrine (XYLOC ERICK with EPI) 2 %-1:100,000 injection 1 01/16/2024 sodium chloride 0.9% flush 0.5-20 mL 2 12/18 sodium chloride 0.9% infusion 1 01/16/2024 Nursing Count Last Ordered Date First Orde red Date TELEMETRY MONITORING 1 01/16/2024 Discharge Count Last Ordered Date First Orde red Date DISCHARGE PATIENT 1 01/16/2024 CORE MEASURES Count Last Ordered Date First Ord ered Date REASON FOR NO VTE PROPHYLAXIS AT ADMISSION 1 01/16/2024 documented in this encounter Care Teams [employer] Relationship Specialty Start Date End Date Donnie Sanon MD PCP - General Family Practice 06/23/23 Eun Ballesteros PA [address] [place] [address] [place] [id number] Internal Medicine 06/23/23 documented as of this encounter
--- OUTSIDE RECORDS SUMMARY | 2024-08-08 10:09 | XMS_ITS | Data Portability ---
Author Organization DONALD Almas ADAM Address [address] [place] [address] Care Team Providers Care Inspector Firearms Name Role Phone EUN BALLESTEROS Primary Care Provider Unavailabl e Assessment No assessment recorded. Plan of Treatment Reminders Order Date Submit Date Provider Last Modified By Organization Details Last Modified Time Details Appointments None record ed. Lab TSH, ultra- sensit selvin, serum 2015 [facility], [address] [place] [address], [address], [place], [address], 6 04:32:08 CBC 2015 [facility], [address] [place] [address], [address], [place], [address], 6 04:31:49 CMP, serum or plasma 2015 [facility], [address] [place] [address], [address], [place], [address], 6 04:32:04 lipid panel, serum 2015 [facility], [address] [place] [address], [address], [place], [address], 6 04:31:51 vitami n D, 25-hyd doe, total, serum 2015 016 [facility], [address], [address], [place], [address], 6 04:31:51 TSH + free T4, serum 2017 018 [facility], [address], [place], [address], 8 05:35:11 thyroi d peroxi dase (tpo) Ab, serum 2017 018 [facility], [address], [place], [address], 8 05:35:12 T3, free, serum or plasma 2017 018 [facility], [address], [place], [address], 8 05:35:12 lipid panel, serum 2017 018 [facility], [facility], [address], [place], [address], 8 06:06:15 hemogl obin, qualit ative, stool by immuno logic method 2017 018 [facility], [facility] [address], [address], [place], [address], 8 16:19:41 T4, free, serum 2017 018 [facility], [facility], [address], [place], [address], 8 06:06:15 CMP, serum or plasma 2017 018 [facility], [facility] [address], [address], [place], [address], 8 06:06:14 lipid panel, serum 2017 018 [facility] DIOR, [address], [address], [place], [address], 8 06:07:00 CMP, serum or plasma 2017 018 [facility], [address] [place] [address] [address], [address], [place], [address], 8 06:06:59 TSH, ultra- sensit selvin, serum 2017 018 [facility], [address] [place] [address] [address], [address], [place], [address], 8 06:07:00 rf (rheum atoid factor ), serum 2018 019 SAM[facility] AUSTIN, [address] [place] [address] [address], [address], [place], [address], 9 16:16:32 erythr ocyte sedime ntatio n rate by prudence gren method 2018 019 [facility] GEOVANNA, [address] [place] [address] [address], [address], [place], [address], 9 16:16:33 DENISHA (antin uclear antibo dies) screen , serum 2018 019 SAM[facility] AUSTIN, [address] [place], [place] [address], [address], [place], [address], 9 16:16:32 lyme diseas e igg+ig m, serum, reflex prudence n blot 2018 019 [facility], [address] [place] [address] [place], [address], [place], [address], 9 16:16:31 TSH + free T4, serum 2018 019 [facility], [address] [facility], [address], [place], [address], 9 16:16:31 T3, free, serum or plasma 2018 019 [facility], [address] [facility], [address], [place], [address], 9 16:16:34 thyroi d peroxi dase (tpo) Ab, serum 2018 019 [facility], [address] [facility], [address], [place], [address], 9 16:16:34 Referral colono scopy referr al 2015 016 [email or web address] Not available 7 10:15:36 gyneco logist referr al 2017 Drew Murray MD, [address] , [facility], [place], [address], 8 09:38:44 Procedures None record ed. Surgeries None record ed. Imaging MAMMO, screen ing, bilate ral 2015 016 Not available 6 04:32:07 MAMMO, screen ing, digita l, bilate ral 2017 018 [email or web address] Not available 8 08:50:21 MAMMO, screen ing, digita l, bilate ral 2017 018 [email or web address] [facility] Scheduling, [address] [facility] , [place], [address], 8 15:45:07 Medication Orders Calciu m 500 + D 500 mg-10 mcg (400 unit) tablet 2015 016 prieto [id number], [address] [place], [address], 8 10:06:21 metopr olol succin ate ER 25 mg tablet ,exten ded releas e 24 hr 2017 018 [id number], [address] [place], [address], 8 03:02:26 Patient TargetsNo targets recorded. Patient Instructions Encounter Date Encounter Id Patient Instructions Last Modified By Organization Details Last Modified Time 09/24/2017 [id number] Need annual screening tests for mammogram, colon cancer screen stool kit; need to establish with quantitative analyst marketing for screening PAP. [email or web address] Not available 09/24/2017 10:53:59 12/22/2017 [id number] return for labs in 2 weeks [email or web address] Not available 12/22/2017 10:29:29 Reason for Referral Colonoscopy Referral for Scr eening for malignant neoplasm of colon Referring Physician: Eun Ballesteros, Internal Medicine, Encounter Date: 07/10/2016 Hand Presser Referral for Sc reening for malignant neoplasm of cervix Referring Physician: Eun Ballesteros Internal Medicine, Encounter Date: 12/22/2017 Results Created Date Observation Date Name Description Value Unit Range Abnormal Flag Note LastModifiedBy Organization Detail LastModifiedTime 07/10/20 16 07/11/2016 CBC WBC 5.2 x10e3 /uL 3.4-10 .8 Not Available [facility] ([facility]) [address] [facility], [place], [address], 07/11/2016 06:13:54 07/10/20 16 07/11/2016 CBC RBC 4.41 x10e6 /uL 3.77-5 .28 Not Available [facility] ([facility]) [address] [facility], [place], [address], 07/11/2016 06:13:54 07/10/20 16 07/11/2016 CBC hemoglobin 13.2 g/dL 11.1-1 5.9 Not Available [facility] ([facility]) [address] [facility] [place], [address], 07/11/2016 06:13:54 07/10/20 16 07/11/2016 CBC hematocrit 39.1 % 34.0-4 6.6 Not Available [facility] ([facility]) [address] [facility], [place], [address], 07/11/2016 06:13:54 07/10/20 16 07/11/2016 CBC MCV 89 fL 79-97 Not Available [facility] ([facility]) [address] [facility], [place], [address], 07/11/2016 06:13:54 07/10/20 16 07/11/2016 CBC MCH 29.9 pg 26.6-3 3.0 Not Available [facility] ([facility]) [address] [facility], [place], [address], 07/11/2016 06:13:54 07/10/20 16 07/11/2016 CBC MCHC 33.8 g/dL 31.5-3 5.7 Not Available [facility] ([facility]) [address] [facility], [place], [address], 07/11/2016 06:13:54 07/10/20 16 07/11/2016 CBC RDW 13.7 % 12.3-1 5.4 Not Available [facility] ([facility]) [address] [facility], [place], [address], 07/11/2016 06:13:54 07/10/20 16 07/11/2016 CBC platelets 339 x10e3 /uL 150-37 9 Not Available [facility] ([facility]) [address] [facility], [place], [address], 07/11/2016 06:13:54 07/10/20 16 07/11/2016 CBC neutrophils 52 % Not Avai lable [facility] ([facility]) [address] [facility] [place], [address], 07/11/2016 06:13:54 07/10/20 16 07/11/2016 CBC lymphs 36 % Not Available [facility] ([facility]) [address] [place], [address], 07/11/2016 06:13:54 07/10/20 16 07/11/2016 CBC monocytes 9 % Not Availa ble [facility] ([facility]) [address] [facility] [place], [address], 07/11/2016 06:13:54 07/10/20 16 07/11/2016 CBC eos 2 % Not Available [facility] ([facility]) [address] [place], [address], 07/11/2016 06:13:54 07/10/20 16 07/11/2016 CBC basos 1 % Not Available [facility] ([facility]) [address] [facility] [place], [address], 07/11/2016 06:13:54 07/10/20 16 07/11/2016 CBC immature cells GUITAR [employer] HAND Not Available [facility] ([facility]) [address] [place], [address], 07/11/2016 06:13:54 07/10/20 16 07/11/2016 CBC neutrophils (absolute) 2.7 x10e3 /uL 1.4-7. 0 Not Available [facility] ([facility]) [address] [facility] [place], [address], 07/11/2016 06:13:54 07/10/20 16 07/11/2016 CBC lymphs (absolute) 1.9 x10e3 /uL 0.7-3. 1 Not Available [facility] ([facility]) [address] [place], [address], 07/11/2016 06:13:54 07/10/20 16 07/11/2016 CBC monocytes(ab solute) 0.5 x10e3 /uL 0.1-0. 9 Not Available [facility] ([facility]) [address] [facility], [place], [address], 07/11/2016 06:13:54 07/10/20 16 07/11/2016 CBC eos (absolute) 0.1 x10e3 /uL 0.0-0. 4 Not Available [facility] ([facility]) [address] [facility] [place], [address], 07/11/2016 06:13:54 07/10/20 16 07/11/2016 CBC baso (absolute) 0.0 x10e3 /uL 0.0-0. 2 Not Available [facility] ([facility]) [address] [facility], [place], [address], 07/11/2016 06:13:54 07/10/20 16 07/11/2016 CBC immature granulocytes 0 % Not Available [facility]) [address] [facility], [place], [address], 07/11/2016 06:13:54 07/10/20 16 07/11/2016 CBC immature grans (abs) 0.0 x10e3 /uL 0.0-0. 1 Not Available [facility] ([facility]) [address] [facility] [place], [address], 07/11/2016 06:13:54 07/10/20 16 07/11/2016 CBC NRBC [employer] Not Available [facility] ([facility]) [address] [facility] [place], [address], 07/11/2016 06:13:54 07/10/20 16 07/11/2016 CBC hematology comments: GUITAR [employer] HAND Not Available [facility] ([facility]) [address] [facility], [place], [address], 07/11/2016 06:13:54 07/10/20 16 07/11/2016 CMP, serum or plasm a glucose, serum 93 mg/dL 65-99 Not Available [facility] ([facility]) [address] [place], [address], 07/11/2016 06:13:54 07/10/20 16 07/11/2016 CMP, serum or plasm a BUN 14 mg/dL 8-27 Not Available [facility] ([facility]) [address] [place], [address], 07/11/2016 06:13:54 07/10/20 16 07/11/2016 CMP, serum or plasm a creatinine, serum 0.78 mg/dL 0.57-1 .00 Not Available [facility] ([facility]) [address] [place], [address], 07/11/2016 06:13:54 07/10/20 16 07/11/2016 CMP, serum or plasm a eGFR if nonafricn AM 83 mL/mi n/1.7 3 >59 Not Available [facility] ([facility]) [address] [place], [address], 07/11/2016 06:13:54 07/10/20 16 07/11/2016 CMP, serum or plasm a eGFR if africn AM 96 mL/mi n/1.7 3 >59 Not Available [facility] ([facility]) [address] [place], [address], 07/11/2016 06:13:54 07/10/20 16 07/11/2016 CMP, serum or plasm a BUN/creatini ne ratio 18 11-26 Not Available [facility] ([facility]) [address] [place], [address], 07/11/2016 06:13:54 07/10/20 16 07/11/2016 CMP, serum or plasm a sodium, serum 142 mmol/ L 136-14 4 Not Available [facility] ([facility]) [address] [facility] [place], [address], 07/11/2016 06:13:54 07/10/20 16 07/11/2016 CMP, serum or plasm a potassium, serum 4.2 mmol/ L 3.5-5. 2 Not Available [facility] ([facility]) [address] [facility] [place], [address], 07/11/2016 06:13:54 07/10/20 16 07/11/2016 CMP, serum or plasm a chloride, serum 100 mmol/ L 97-106 Not Available [facility] ([facility]) [address] [facility] [place], [address], 07/11/2016 06:13:54 07/10/20 16 07/11/2016 CMP, serum or plasm a carbon dioxide, total 24 mmol/ L 18-29 Not Available [facility] ([facility]) [address] [facility] [place], [address], 07/11/2016 06:13:54 07/10/20 16 07/11/2016 CMP, serum or plasm a calcium, serum 9.4 mg/dL 8.7-10 .3 Not Available [facility] ([facility]) [address] [place] [address], [place], [address], 07/11/2016 06:13:54 07/10/20 16 07/11/2016 CMP, serum or plasm a protein, total, serum 7.3 g/dL 6.0-8. 5 Not Available [facility] ([facility]) [address] [facility] [place], [address], 07/11/2016 06:13:54 07/10/20 16 07/11/2016 CMP, serum or plasm a albumin, serum 4.4 g/dL 3.6-4. 8 Not Available [facility] ([facility]) [address] [place] [address] [place], [address], 07/11/2016 06:13:54 07/10/20 16 07/11/2016 CMP, serum or plasm a globulin, total 2.9 g/dL 1.5-4. 5 Not Available [facility] ([facility]) [address] [facility] [place], [address], 07/11/2016 06:13:54 07/10/20 16 07/11/2016 CMP, serum or plasm a A/G ratio 1.5 1.1-2. 5 Not Available [facility] ([facility]) [address] [place], [address], 07/11/2016 06:13:54 07/10/20 16 07/11/2016 CMP, serum or plasm a bilirubin, total 0.3 mg/dL 0.0-1. 2 Not Available [facility] ([facility]) [address] [facility] [place], [address], 07/11/2016 06:13:54 07/10/20 16 07/11/2016 CMP, serum or plasm a alkaline phosphatase, S 67 IU/L 39-117 Not Available [facility] ([facility]) [address] [place], [address], 07/11/2016 06:13:54 07/10/20 16 07/11/2016 CMP, serum or plasm a AST (SGOT) 16 IU/L 0-40 Not Available [facility] ([facility]) [address] [place], [address], 07/11/2016 06:13:54 07/10/20 16 07/11/2016 CMP, serum or plasm a ALT (SGPT) 15 IU/L 0-32 Not Available [facility] ([facility]) [address] [place], [address], 07/11/2016 06:13:54 07/10/20 16 07/11/2016 lipid panel , serum cholesterol, total 233 mg/dL 100-19 9 above high normal Not Available [facility] ([facility]) [address] [place], [address], 07/11/2016 06:13:55 07/10/20 16 07/11/2016 lipid panel , serum triglyceride s 115 mg/dL 0-149 Not Available [facility] ([facility]) [address] [facility] [place], [address], 07/11/2016 06:13:55 07/10/20 16 07/11/2016 lipid panel , serum HDL cholesterol 78 mg/dL >39 Not Available [facility] ([facility]) [address] [facility] [place], [address], 07/11/2016 06:13:55 07/10/20 16 07/11/2016 lipid panel , serum VLDL cholesterol sendy 23 mg/dL 5-40 Not Available [facility] ([facility]) [address] [facility] [place], [address], 07/11/2016 06:13:55 07/10/20 16 07/11/2016 lipid panel , serum LDL cholesterol calc 132 mg/dL 0-99 above high normal Not Available [facility] ([facility]) [address] [facility] [place], [address], 07/11/2016 06:13:55 07/10/20 16 07/11/2016 lipid panel , serum comment: GU[employer] Not Available [facility] ([facility]) [address] [facility] [place], [address], 07/11/2016 06:13:55 07/10/20 16 07/11/2016 TSH, ultra -sens itive , serum TSH 5.650 uIU/m L 0.450- 4.500 above high normal Not Available [facility] ([facility]) [address] [facility] [place], [address], 07/11/2016 06:13:55 07/10/20 16 07/11/2016 vitam in D, 25-hy droxy , total , serum vitamin D, 25-hydroxy 20.1 NG/mL 30.0-1 00.0 below low normal VITAM IN D DEFIC IENCY HAS BEEN DEFIN ED BY THE INSTI TUTE OF MEDIC INE AND AN ENDOC RINE SOCIE TY PRACT ICE GUIDE LINE A LEVEL OF SERUM 25-OH VITAM IN D LESS THAN 20 NG/ML (1,2) . THE ENDOC RINE SOCIE TY WENT ON TO FURTH ER DEFIN E VITAM IN D INSUF FICIE NCY A LEVEL BETWE EN 21 AND 29 NG/ML (2). 1. IOM (INST ITUTE OF MEDIC INE). 2009. DIETA RY REFER ENCE INTAK ES FOR CALCI UM AND D. MEREDITH PEÑA [place]: [facility] PR[facility] . 2. BENJI Huerta MF, KAITLIN VASQUEZ [place], KENDRA OFF-F ZOIE I GIRON, ET AL. EVALU ATION , TREAT MENT, AND PREVE NTION OF VITAM IN D DEFIC IENCY : AN ENDOC RINE SOCIE TY CLINI SENDY PRACT ICE GUIDE LINE. JCEM. 2010; 96(7) :1911 -30. Not Available [facility] ([facility]) [address] [facility], [place], [address], 07/11/2016 06:13:56 09/16/19 18 09/17/2017 T4, free, serum T4, free 1.2 NG/dL 0.8-1. 8 normal Not Available [facility] [address] [address] [place], [address], 09/17/2017 05:24:42 09/16/19 18 09/17/2017 TSH, serum or plasm a TSH 5.26 mIU/L 0.40-4 .50 high Not Available [facility] [address] [address] [place], [address], 09/17/2017 05:24:42 11/20/19 18 11/20/2017 TSH + free T4, serum TSH 6.95 mIU/L 0.40-4 .50 high Not Available [facility] [address] [address] [place], [address], 11/20/2017 05:35:11 11/20/19 18 11/20/2017 TSH + free T4, serum T4, free 1.1 NG/dL 0.8-1. 8 normal Not Available [address], [address], 11/20/2017 05:35:11 11/20/19 18 11/20/2017 thyro id perox idase (tpo) Ab, serum thyroid peroxidase antibodies 1 IU/mL <9 normal Not Available [facility] [address], [address], 11/20/2017 17:29:54 11/20/19 18 11/20/2017 T3, free, serum or plasm a T3, free 2.7 pg/mL 2.3-4. 2 normal Not Available [facility] [address], [address], 11/20/2017 05:35:12 01/20/20 18 01/20/2018 CMP, serum or plasm a glucose 99 mg/dL 65-99 Not Available [facility] ([facility]) [address] [place], [address], 01/20/2018 06:06:14 01/20/20 18 01/20/2018 CMP, serum or plasm a BUN 14 mg/dL 8-27 Not Available [facility] ([facility]) [address] [place], [address], 01/20/2018 06:06:14 01/20/20 18 01/20/2018 CMP, serum or plasm a creatinine 0.77 mg/dL 0.57-1 .00 Not Available [facility] ([facility]) [address] [place], [address], 01/20/2018 06:06:14 01/20/20 18 01/20/2018 CMP, serum or plasm a eGFR if nonafricn AM 84 mL/mi n/1.7 3 >59 Not Available [facility] ([facility]) [address] [place], [address], 01/20/2018 06:06:14 01/20/20 18 01/20/2018 CMP, serum or plasm a eGFR if africn AM 96 mL/mi n/1.7 3 >59 Not Available [facility] ([facility]) [address] [place], [address], 01/20/2018 06:06:14 01/20/20 18 01/20/2018 CMP, serum or plasm a BUN/creatini ne ratio 18 08-14 Not Available [facility] ([facility]) [address] [place], [address], 01/20/2018 06:06:14 01/20/20 18 01/20/2018 CMP, serum or plasm a sodium 140 mmol/ L 134-14 4 Not Available [facility] ([facility]) [address] [place], [address], 01/20/2018 06:06:14 01/20/2001/20/2018 CMP, serum or plasm a potassium 4.3 mmol/ L 3.5-5. 2 Not Available [facility] ([facility]) [address] [place], [address], 01/20/2018 06:06:14 01/20/20 18 01/20/2018 CMP, serum or plasm a chloride 101 mmol/ L 96-106 Not Available [facility] ([facility]) [address] [place], [address], 01/20/2018 06:06:14 01/20/20 18 01/20/2018 CMP, serum or plasm a carbon dioxide, total 25 mmol/ L Eff ectiv e January 26, 2018 Carbo n Dioxi de, Total refer ence inter geronimo will be rai ing to: Age Male Femal e 0 days - 30 days 16 - 29 16 - 29 31 days - 1 year 15 - 25 15 - 25 2 years - 5 years 17 - 26 17 - 26 6 years - 12 years 19 - 27 19 - 27 >12 years 20 - 29 20 - 29 Not Available [facility] ([facility]) [address] [place], [address], 01/20/2018 06:06:14 01/20/20 18 01/20/2018 CMP, serum or plasm a calcium 9.6 mg/dL 8.7-10 .3 Not Available [facility] ([facility]) [address] [place], [address], 01/20/2018 06:06:14 01/20/20 18 01/20/2018 CMP, serum or plasm a protein, total 7.2 g/dL 6.0-8. 5 Not Available [facility] ([facility]) [address] [place], [address], 01/20/2018 06:06:14 01/20/20 18 01/20/2018 CMP, serum or plasm a albumin 4.5 g/dL 3.6-4. 8 Not Available [facility] ([facility]) [address] [place], [address], 01/20/2018 06:06:14 01/20/20 18 01/20/2018 CMP, serum or plasm a globulin, total 2.7 g/dL 1.5-4. 5 Not Available [facility] ([facility]) [address] [place], [address], 01/20/2018 06:06:14 01/20/2001/20/2018 CMP, serum or plasm a A/G ratio 1.7 1.2-2. 2 Not Available [facility] ([facility]) [address] [place], [address], 01/20/2018 06:06:14 01/20/2001/20/2018 CMP, serum or plasm a bilirubin, total 0.2 mg/dL 0.0-1. 2 Not Available [facility] ([facility]) [address] [place], [address], 01/20/2018 06:06:14 01/20/20 18 01/20/2018 CMP, serum or plasm a alkaline phosphatase 83 IU/L 39-117 Not Available [facility] ([facility]) [address] [place], [address], 01/20/2018 06:06:14 01/20/20 18 01/20/2018 CMP, serum or plasm a AST (SGOT) 13 IU/L 0-40 Not Available [facility] ([facility]) [address] [place], [address], 01/20/2018 06:06:14 01/20/20 18 01/20/2018 CMP, serum or plasm a ALT (SGPT) 15 IU/L 0-32 Not Available [facility] ([facility]) [address] [facility] [place], [address], 01/20/2018 06:06:14 01/20/20 18 01/20/2018 lipid panel , serum cholesterol, total 227 mg/dL 100-19 9 above high normal Not Available [facility] ([facility]) [address] [facility] [place], [address], 01/20/2018 06:06:15 01/20/20 18 01/20/2018 lipid panel , serum triglyceride s 170 mg/dL 0-149 above high normal Not Available [facility] ([facility]) [address] [facility] [place], [address], 01/20/2018 06:06:15 01/20/20 18 01/20/2018 lipid panel , serum HDL cholesterol 67 mg/dL >39 Not Available [facility] [address] [facility] [place], [address], 01/20/2018 06:06:15 01/20/20 18 01/20/2018 lipid panel , serum VLDL cholesterol sendy 34 mg/dL 5-40 Not Available [facility] [address] [facility] [place], [address], 01/20/2018 06:06:15 01/20/20 18 01/20/2018 lipid panel , serum LDL cholesterol calc 126 mg/dL 0-99 above high normal Not Available [facility] ([facility]) [address] [facility] [place], [address], 01/20/2018 06:06:15 01/20/20 18 01/20/2018 lipid panel , serum comment: GUITAR [employer] HAND Not Available [facility] ([facility]) [address] [facility] [place], [address], 01/20/2018 06:06:15 01/20/20 18 01/20/2018 T4, free, serum T4,free(dire ct) 1.20 NG/dL 0.82-1 .77 Not Available [facility] ([facility]) [address] [facility] [place], [address], 01/20/2018 06:06:15 01/20/20 18 01/20/2018 hemog lobin , quali tativ e, stool by immun ologi c metho d occult blood, fecal, ia Negati ve negati ve Not Available [facility] ([facility]) [address] [facility] [place], [address], 01/20/2018 16:19:41 04/27/20 18 04/28/2018 CMP, serum or plasm a glucose 87 mg/dL 65-99 Not Available [facility] ([facility]) [address] [facility] [place], [address], 04/28/2018 06:06:59 04/27/20 18 04/28/2018 CMP, serum or plasm a BUN 15 mg/dL 8-27 Not Available [facility] ([facility]) [address] [facility] [place], [address], 04/28/2018 06:06:59 04/27/20 18 04/28/2018 CMP, serum or plasm a creatinine 0.71 mg/dL 0.57-1 .00 Not Available [facility] ([facility]) [address] [place], [address], 04/28/2018 06:06:59 04/27/20 18 04/28/2018 CMP, serum or plasm a eGFR if nonafricn AM 92 mL/mi n/1.7 3 >59 Not Available [facility] ([facility]) [address] [facility] [place], [address], 04/28/2018 06:06:59 04/27/20 18 04/28/2018 CMP, serum or plasm a eGFR if africn AM 106 mL/mi n/1.7 3 >59 Not Available [facility] ([facility]) [address] [facility] [place], [address], 04/28/2018 06:06:59 04/27/20 18 04/28/2018 CMP, serum or plasm a BUN/creatini ne ratio 21 12-28 Not Available [facility] ([facility]) [address] [place], [address], 04/28/2018 06:06:59 04/27/20 18 04/28/2018 CMP, serum or plasm a sodium 143 mmol/ L 134-14 4 Not Available [facility] ([facility]) [address] [place], [address], 04/28/2018 06:06:59 04/27/20 18 04/28/2018 CMP, serum or plasm a potassium 4.7 mmol/ L 3.5-5. 2 Not Available [facility] ([facility]) [address] [place], [address], 04/28/2018 06:06:59 04/27/20 18 04/28/2018 CMP, serum or plasm a chloride 102 mmol/ L 96-106 Not Available [facility] ([facility]) [address] [place] [address], [address], 04/28/2018 06:06:59 04/27/20 18 04/28/2018 CMP, serum or plasm a carbon dioxide, total 28 mmol/ L 20-29 Not Available [facility] ([facility]) [address] [facility] [place], [address], 04/28/2018 06:06:59 04/27/20 18 04/28/2018 CMP, serum or plasm a calcium 9.8 mg/dL 8.7-10 .3 Not Available [facility] ([facility]) [address] [facility] [place], [address], 04/28/2018 06:06:59 04/27/2004/28/2018 CMP, serum or plasm a protein, total 7.3 g/dL 6.0-8. 5 Not Available [facility] ([facility]) [address] [facility] [place], [address], 04/28/2018 06:06:59 04/27/2004/28/2018 CMP, serum or plasm a albumin 4.6 g/dL 3.6-4. 8 Not Available [facility] ([facility]) [address] [facility] [place], [address], 04/28/2018 06:06:59 04/27/2004/28/2018 CMP, serum or plasm a globulin, total 2.7 g/dL 1.5-4. 5 Not Available [facility] ([facility]) [address] [facility] [place], [address], 04/28/2018 06:06:59 04/27/2004/28/2018 CMP, serum or plasm a A/G ratio 1.7 1.2-2. 2 Not Available [facility] ([facility]) [address] [facility] [place], [address], 04/28/2018 06:06:59 04/27/2004/28/2018 CMP, serum or plasm a bilirubin, total 0.2 mg/dL 0.0-1. 2 Not Available [facility] ([facility]) [address] [facility] [place], [address], 04/28/2018 06:06:59 04/27/20 18 04/28/2018 CMP, serum or plasm a alkaline phosphatase 75 IU/L 39-117 Not Available [facility] ([facility]) [address] [place], [address], 04/28/2018 06:06:59 04/27/20 18 04/28/2018 CMP, serum or plasm a AST (SGOT) 15 IU/L 0-40 Not Available [facility] ([facility]) [address] [place], [address], 04/28/2018 06:06:59 04/27/20 18 04/28/2018 CMP, serum or plasm a ALT (SGPT) 14 IU/L 0-32 Not Available [facility] ([facility]) [address] [facility] [place], [address], 04/28/2018 06:06:59 04/27/20 18 04/28/2018 lipid panel , serum cholesterol, total 237 mg/dL 100-19 9 above high normal Not Available [facility] ([facility]) [address] [facility] [place], [address], 04/28/2018 06:07:00 04/27/20 18 04/28/2018 lipid panel , serum triglyceride s 182 mg/dL 0-149 above high normal Not Available [facility] ([facility]) [address] [facility] [place], [address], 04/28/2018 06:07:00 04/27/20 18 04/28/2018 lipid panel , serum HDL cholesterol 69 mg/dL >39 Not Available [facility] ([facility]) [address] [facility] [place], [address], 04/28/2018 06:07:00 04/27/20 18 04/28/2018 lipid panel , serum VLDL cholesterol sendy 36 mg/dL 5-40 Not Available [facility] ([facility]) [address] [facility], [place], [address], 04/28/2018 06:07:00 04/27/20 18 04/28/2018 lipid panel , serum LDL cholesterol calc 132 mg/dL 0-99 above high normal Not Available [facility] ([facility]) [address] [facility], [place], [address], 04/28/2018 06:07:00 04/27/20 18 04/28/2018 lipid panel , serum comment: GUITAR MAKER HAND Not Available [facility] ([facility]) [address] [facility], [place], [address], 04/28/2018 06:07:00 04/27/20 18 04/28/2018 TSH, ultra -sens itive , serum TSH 5.200 uIU/m L 0.450- 4.500 above high normal Not Available [facility] ([facility]) [address] [place], [address], 04/28/2018 06:07:00 09/28/19 19 09/29/2018 TSH + free T4, serum TSH 5.350 uIU/m L 0.450- 4.500 above high normal Not Available [facility] ([facility]) [address] [place], [address], 09/29/2018 16:16:31 09/28/19 19 09/29/2018 TSH + free T4, serum T4,free(dire ct) 1.05 NG/dL 0.82-1 .77 Not Available [facility] ([facility]) [address] [place], [address], 09/29/2018 16:16:31 09/28/1909/29/2018 lyme disea se igg+i gm, serum , refle x weste rn blot lyme IgG/IgM Ab <0.91 isr 0.00-0 .90 Negat selvin <0.91 Equiv ocal 0.91 - 1.09 Posit selvin >1.09 Not Available [facility] ([facility]) [address] [place], [address], 09/29/2018 16:16:31 09/28/19 19 09/29/2018 lyme disea se igg+i gm, serum , refle x gina rn blot lyme disease Ab, quant, IgM <0.80 index 0.00-0 .79 Negat selvin <0.80 Equiv ocal 0.80 - 1.19 Posit selvin >1.19 IgM level s may peak at 3-6 weeks post infec tion, then gradu ally decli ne. Not Available [facility] ([facility]) [address] [facility], [place], [address], 09/29/2018 16:16:31 09/28/19 19 09/29/2018 rf (rheu matoi d facto r), serum RA latex turbid. <10.0 IU/mL 0.0-13 .9 Not Available [facility] ([facility]) [address] [facility], [place], [address], 09/29/2018 16:16:32 09/28/19 19 09/29/2018 DENISHA (anti nucle ar antib odies ) scree n, serum DENISHA direct Negati ve negati ve Not Available [facility] ([facility]) [address] [facility], [place], [address], 09/29/2018 16:16:32 09/28/19 19 09/29/2018 eryth rocyt e sedim entat ion rate by gina moqsuera metho d sedimentatio n rate-daviderg epi 2 mm/HR 0-40 Not Available [facility] ([facility]) [address] [facility], [place], [address], 09/29/2018 16:16:33 09/28/19 19 09/29/2018 thyro id perox idase (tpo) Ab, serum thyroid peroxidase (tpo) Ab 15 IU/mL 0-34 Not Available [facility] ([facility]) [address] [facility], [place], [address], 09/29/2018 16:16:34 09/28/19 19 09/29/2018 T3, free, serum or plasm a triiodothyro nine (T3), free 2.2 pg/mL 2.0-4. 4 Not Available [facility] ([facility]) [address] [facility], [place], [address], 09/29/2018 16:16:34 Result Notes None recorded. Problems Name Problem SNOMED Code Status Onset Date Resolution Date Notes Provider Name and Address Organization Details Recorded Time Palpitat ions 44312037 Active 2017 Eun Ballesteros PA-C Attn: Tarah dwain,[address] [facility], [place], [address], [facility] 8 10:41:25 Thyroid function tests abnormal 695952467 Active 2017 Eun Ballesteros PA-C Attn: Tarah prakash,[address] [place], [address], [facility] 8 10:41:27 Insomnia 927742294 Active 2017 Eun Ballesteros PA-C Attn: Tarah prakash,[address] [place], [address], [facility] 8 10:41:28 Menopaus al symptom 15376303 Active 2017 Eun Ballesteros PA-C Attn: Tarah prakash,[address] [place], [address], [facility] 8 10:41:30 Mixed hyperlip idemia 304066300 Active 2017 ascvd 10yr risk 2.7% Eun Ballesteros PA-C Attn: Tarah dwain,[address] [place], [address], [facility] 8 12:37:46 Generali zed aches and pains 83761167 Completed 09/24/2017 Eun Ballesteros PA-C Attn: Tarah dwain,[address] [place], [address], [facility] 8 10:32:06 Fatigue 53426432 Active KELLY Dodge null, [place] - [facility] 8 10:09:46 Increase d frequenc y of urinatio n 659454668 Completed 07/08/2016 Removal Reason: resolved Eun Ballesteros PA-C Attn: Accountritchie prakash,[address] [facility], [place], [address], [facility] 6 13:05:33 Serum thyroid stimulat ing hormone level outside referenc e range 772950795 Completed 07/08/2016 Removal Reason: dx w/ hyperthyr oidism 05/18/15 Eun Ballesteros PA-C Attn: Tarah g,[address] [facility], [place], [address], [facility] 6 13:05:17 Hyperthy roidism 19417478 Completed 09/24/201704/[address] [facility], pt did not go to appt Eun Ballesteros PA-C Attn: Tarah prakash,[address] [facility], [place], [address], [facility] 8 10:41:19 Problem Notes None recorded. Procedures Surgical History Date Name Laterality Status Provider Name and Address Organization Details Recorded Time Eye Surgery completed Azra Dorsey MA [facility] 12/29/2014 14:58:44 Tubal Ligation completed Azra Dorsey MA [facility] 12/29/2014 14:58:44 Imaging Results None recorded. Procedure Notes None recorded. Medical Equipment None Reported. Allergies No known drug allergies Medications Name Sig Start Date Stop Date Status Note LastModified by Organization Details LastModified Time Tubersol 5 tub. unit/0.1 mL intradermal injection solution Inject 0.5 ml once by intraderm al route. 2014 active Not Available Not Available Not Avai lable levothyroxi ne 25 mcg tablet TAKE 1 TABLET(S) EVERY DAY BY ORAL ROUTE. 04/27 completed Not Available Not Available Not Available metoprolol succinate ER 25 mg tablet,exte nded release 24 hr TAKE 1 TABLET BY MOUTH IN THE EVENING active Not Available Not Available No t Available Calcium 500 + D 500 mg-10 mcg (400 unit) tablet Take 1 tablet twice a day by oral route. 09/24 completed Not Available Not Available Not Available Fluvirin 8435-3957 45 mcg (15 mcg x 3)/0.5 mL intramuscul ar suspension active Not Available Not Available N ot Available Vitals Date Recorded Body height Body mass index (BMI) Body weight Heart rate Respiratory rate Body temperature Oxygen saturation Oxygen saturation in Arterial blood by Pulse oximetry Systolic blood pressure Diastolic blood pressure Provider Name and Address Organization Details Last Updated DateTime 8 154.94 cm 27 kg/m2 56266.0 7 g 71 /min 16 /min 98.2 [degF] 97 % 97 % 110 mm[Hg] 72 mm[Hg] KELLY Dodge [place] - [facility] 8 10:09:17 Date Recorded Body height Body mass index (BMI) Body weight Heart rate Respiratory rate Body temperature Oxygen saturation Oxygen saturation in Arterial blood by Pulse oximetry Systolic blood pressure Diastolic blood pressure Provider Name and Address Organization Details Last Updated DateTime 8 154.94 cm 27.3 kg/m2 07099.3 8 g 72 /min 12 /min 98.4 [degF] 96 % 96 % 112 mm[Hg] 70 mm[Hg] KELLY Dodge [place] - [facility] 8 10:16:37 Date Recorded Body height Body mass index (BMI) Body weight Heart rate Respiratory rate Body temperature Oxygen saturation Oxygen saturation in Arterial blood by Pulse oximetry Systolic blood pressure Diastolic blood pressure Provider Name and Address Organization Details Last Updated DateTime 8 154.94 cm 26.9 kg/m2 80528.9 1 g 93 /min 12 /min 98.4 [degF] 98 % 98 % 110 mm[Hg] 62 mm[Hg] KELLY Dodge [place] - [facility] 8 10:37:25 Date Recorded Body height Body mass index (BMI) Body weight Heart rate Respiratory rate Body temperature Oxygen saturation Oxygen saturation in Arterial blood by Pulse oximetry Systolic blood pressure Diastolic blood pressure Provider Name and Address Organization Details Last Updated DateTime 9 154.94 cm 26.8 kg/m2 69828.6 8 g 80 /min 16 /min 96.9 [degF] 96 % 96 % 116 mm[Hg] 72 mm[Hg] Shira GarrettKELLY [facility] 9 10:23:12 Date Recorded Body height Body weight Body mass index (BMI) Heart rate Respiratory rate Body temperature Oxygen saturation Oxygen saturation in Arterial blood by Pulse oximetry Systolic blood pressure Diastolic blood pressure Provider Name and Address Organization Details Last Updated DateTime 6 154.94 cm 60974.6 5 g 24.5 kg/m2 88 /min 12 /min 98.2 [degF] 97 % 97 % 132 mm[Hg] 78 mm[Hg] Minerva Verdin MA [facility] 6 09:17:25 Social History Question Answer Notes LastModified by Organizat ion Details LastModified Time Tobacco Smoking Status Former Smoker JA Grimes, [facility] 12/29/2014 14:58:44 What Is Your Level Of Alcohol Consumption? Occasional cgrandberry Information not available 12/29/2014 What Is Your Level Of Caffeine Consumption? Moderate Coffee Information not available 07/10/2016 What Type Of Diet Are You Following? 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 No Information not available 07/10/2016 Marital Status Larry billy Informatio n not available 07/10/2016 What Was The Date Of Your Most Recent Tobacco Screening? 09/28/2018 Information not available 03/11/2019 Performs Monthly Self-breast Exam? Yes Information not available 07/10/2016 Seat Belts Used Routinely Yes Information not available 07/10/2016 Smoke Alarm In Home Yes Information not available 07/10/2016 How Much Tobacco Do You Smoke? No Information not available 07/10/2016 General Stress Level Low Information not available 04/27/2018 Sex: Unknown Functional Status Question Answer Note LastModified by Organization D etails LastModified Time What is your exercise level? Heavy Information not available 07/10/2016 Mental Status None recorded. Family History Relationship Description Onset Age of this Age Resolved Age Notes LastModified by Organization Details LastModified Time Mother Diabetes mellitus [email or web address] Not available 12/16 14:58:44 Mother Essential hypertension [email or web address] Not available 0 12/29/2014 14:58:44 Medical History Condition Response Thyroid Problems Y Gynecological HistoryNo gynecological history recorded. Obstetrics History GPAL:G 4 P 4 0 0 4 Type Value Full Term 4 Living 4 Total 4 Immunizations Vaccine Type Date Status Note Provider Nam e and Address Organization Details Recorded Time Influenza, split virus, quadrivalent, preservative 6 completed Not Available [facility] 09/04/2019 02:40:22 pneumococcal polysaccharide PPV23 4 completed Shira Tucker, RMA null, [place] [facility] 09/24/2017 10:10:05 Tdap 4 completed Shira Tucker, R[place], [place] [facility] 09/24/2017 10:10:05 Tdap 4 completed Shira Young, R[place], [place] [facility] 09/24/2017 10:10:05 Influenza, split virus, quadrivalent, preservative 5 completed Not Available [facility] 09/04/2019 02:46:38 Influenza, MDCK, quadrivalent, PF 7 completed Shira Young, R[place], [place] [facility] 09/24/2017 10:10:05 Past Encounters Encounter ID Performer Location Encounter Start Date Encounter Closed Date Diagnosis/Indication Diagnosis SNOMED-CT Code Diagnosis ICD10 Code [id number] JA Grimes (Adult Med) [address] [place] [address] 12/29/2014 14:16:54 12/29/2014 15:21:44 Adult health examination 843234277 Screening for malignant neoplasm of breast 977479817 Screening for malignant neoplasm of colon 601585478 Tuberculos is screening 730023120 [id number] Clarissa Haley (Adult Med) [address] [place] [address] 01/02/2015 11:44:43 01/03/2015 03:45:48 Tuberculosis screening 052760773 [id number] Jacques Morgan [facility] (Adult Med) [address] [place] [address] 05/04/2015 14:12:05 05/04/2015 15:47:02 Generalized aches and pains 96901646 Fatigue 19903649 Increased frequency of urination 489292582 [id number] [facility] (Adult Med) [address] [place] [address] 05/11/2015 11:22:12 05/11/2015 12:40:09 Generalized aches and pains 42087556 Fatigue 68255487 [id number] [facility] [address] [place] [address] 06/06/2015 11:05:48 06/14/2015 11:29:04 Administration of influenza vaccine 77150960 Z23 [id number] [facility] [address] [place] [address] 05/29/2016 09:43:58 06/07/2016 09:43:59 Administration of influenza vaccine 02825454 Z23 [id number] ZULEIMA Araujo (Adult Med) [address] [place] [address] 07/10/2016 09:04:24 07/10/2016 10:17:06 Hyperthyroidism 38552201 E05.90 Adult heal th examination 335978339 Z00.00 Hyperlipidemia 75720841 E78.5 Screening for malignant neoplasm of colon 622018045 Z12.11 Screening for malignant neoplasm of breast 877124582 Z12.31 Vitamin deficiency 18259 002 E56.9 Body mass index 20-24 - normal 174775467 Z68.24 [id number] ZULEIMA Araujo (Adult Med) [address] [facility] [place] [address] 09/24/2017 09:57:05 09/25/2017 16:20:32 Thyroid function tests abnormal 125698160 R94.6 Insomnia 669276076 G47.0 0 Menopausal symptom 86174 002 N95.1 Palpitations 59091965 R0 0.2 Body mass index 25-29 - overweight 478323005 Z68.27 [id number] ZULEIMA Araujo (Adult Med) [address] [place] [address] 12/22/2017 10:02:44 12/23/2017 08:50:21 Palpitations 80791666 R00.2 Menopausal symptom 12527 002 N95.1 Body mass index 25-29 - overweight 846845735 Z68.27 Screening for malignant neoplasm of breast 768991050 Z12.31 Screening for malignant neoplasm of colon 811450252 Z12.11 Screening for malignant neoplasm of cervix 196932879 Z12.4 Hypothyroidism 64983943 E03.9 Hyperlipid emia screening 025947361 Z13.653 [id number] ZULEIMA Araujo (Adult Med) [address] [place] [address] 04/27/2018 10:11:35 05/12/2018 15:45:07 Thyroid function tests abnormal 519373901 R94.6 Palpitations 98445112 R0 0.2 Mixed hyperlipidemia 267 862922 E78.2 Screening for malignant neoplasm of breast 490098276 Z12.31 [id number] ZULEIMA Araujo (Adult Med) [address] [place] [address] 09/28/2018 10:11:45 09/29/2018 08:53:05 Thyroid function tests abnormal 274739748 R94.6 Palpitations 85706292 R0 0.2 Myalgia/my ositis - multiple 859041635 M79.10 Screening mammography 24 328902 Z12.31 Health Concerns Section Related Observation LastModified by Organization Detai ls LastModified Time None Recorded Concern Status LastModified by Organization Details LastModified Time None Recorded Advance Directives Directive None Recorded Payers Encounter Date Sequence Insurance Name Policy Number Policy Sawant Covered Member ID Sawant Member ID Guarantor Name 07/10/2016 1 [facility] (PPO) [id number] Maria E Key [id number] Maria E Key 09/24/2017 1 [place] [id number] Maria E Rosalva Yesi [id number] Maria E Rosalva Yesi 12/22/2017 1 [facility]: [place] CHO[place] (PPO) [id number] Maria E Rosalva Yesi [id number] Maria E Rosalva Yesi 04/27/2018 1 [facility]: [place]UE CHOICE (PPO) [id number] Maria E Rosalva Yesi [id number] Maria E Rosalva Yesi 09/28/2018 1 [facility]: [place]UE CHOICE (PPO) [id number] Maria E Rosalva Yesi [id number] Maria E Blackwell Yesi Notes Date Note Type Note Provider Name and Address Organization Details Recorded Time 07/10/2016 text/html Pt reports that she had not seen PCP in years until 12/2014. She had sxs last Apr of fatigue, generalized aches, constantly cold that last months, she was found to have hyperthyroidism, but insurance never approved her to be seen by glove turner and former automatic. Her symptoms fully resolved several months later. She thinks maybe she had an infection and was also under a lot of stress at the time with having temporary custody of her 2yo granddaughter (who is now back w/ her mom) and had been on several trips for vacation.Still having hair & skin issues, but thinks that was happening prior to thyroid problem.She is otherwise healthy, exercises and eats low fat, low carb diet to help her 's diabetes.PAP: can't recall last time she had one done. menopause in 50s. Not taking any calcium supplement.mammogra m: hasn't done.colonoscopy: hasn't done Eun Ballesteros PA-C Attn: Accounting[address] [place], [address], [place] - [facility] 07/10/2016 10:03:04 09/24/2017 text/html 09/13 ER f/u for chest pain, palpitations, admitted overnight negative cardiac w/u.also had URI prior to ER visit, persistent cough day & night, cough still there but getting better.To do 16 for ECHO. no stress test per pt.mildly elevated TSH, h/o low TSH.recent weight gain 13 lbs over 6mo, unintentional.temp all over, wakes up at night w/ sweats for over a year, last period more than 5yrs ago. hot flashes rare during day.sleep problems for 2+ years. staying asleep, wakes 3-4 times a night. no reason at times and hard to fall back asleep. In 2014 had diffuse pain and fatigue, found to have low TSH, did not go to endocrinology then, sxs resolved w/o intervention, TSH on 07/03 was 5.650 to leave for [place] for month of October. Eun Ballesteros PA-C Attn: Accounting[address] [place], [address], [facility] 09/24/2017 10:54:39 12/22/2017 text/html palpitations: better, she can feel it start to race, but then returns to normal within seconds. taking metoprolol and levothyroxine w/o side effects. menopause sxs persist, still having hot flashes mostly at night, but sweats are mild. fatigue/insomnia: no matter what she always wakes up around 5-6am but not waking up middle of the night anymore. However, she sometimes goes to bed after midnight depending on work, this past week has been bad since they had to move a lot of cars and one night up at 3am, woke up before 8am. Once she is up she can't get back to sleep, doesn't nap during day. has never had colonoscopy or mammogram, has been years since she had PAP. Still paying hospital bills from August so cost is an issue. 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 Thyroid med made her feel off, not herself and since levels were fairly low she stopped med. Metoprolol controlling palpitations.sleep is better, no changes. great grand dtr now living w/ them. work is still hectic. Eun Ballesteros PA-C Attn: Accounting[address] [place], [address], [facility] 05/12/2018 13:52:14 09/28/2018 text/html Thyroid tests slightly above normal. Off levothyroxine previous from last visit.feels like she has pain in back of both shoulders, achy, can last 2-7 days and then goes away. Skin is very dry, nothing helping, drinking plenty of water, lotions not helping. No GI sxs. No vision changes. No dysphagia or throat discomfort.Last episode few weeks ago, lasted 2-3 days. No change in activities. Tylenol helps sometimes. JOints get achy especially hips, no CP or dyspnea on exertion.she has recurrent sxs since prior to starting thyroid meds, not sure if that helped when she was taking it. It was sudden, started after a camping trip and she felt achy all over, said even her hair hurt. Since then she has had recurrent sxs in hips and back of shoulders predominantly No new supplements or meds.Occasional GERD w/ certain foods. Not assoc w/ shoulder pains.Palpitations controlled on beta carla, only feels it if she misses dose.hasn't had time to schedule mammogram Eun Ballesteros PA-C Attn: Accounting[address] [facility], [place], [address], [place] [facility] 09/28/2018 10:53:20 OBGyn Episode No OBEpisode recorded.
--- OUTSIDE RECORDS SUMMARY | 2024-08-08 10:09 | XMS_ITS | Encounter Summary ---
Author Organization [facility] Address [address] [place] [address] Care Team Providers Care Desk Editor Name Role Phone Donnie Sanon MD Primary Care Provider [phone] Eun Ballesteros Unavailable [phone] Crow Soliz DO Unavailable [phone] Reason for Visit * Consultation (Routine) - Pending Review Specialty Diagnoses / Procedures Referred By Ana juarez Referred To Contact Cardiology Diagnoses SVT (supraventricular tachycardia) (HCC) Crow Soliz DO [address] [place] [address] Phone: tel: fax: Adam Grover MD [address] [address] Phone: tel: fax: Referral ID Status Reason Start Date Expiration Date Visits Requested Visits Authorized [id number] Pending Review Specialty Services Required 12/18/2023 01/15/2025 12 12 Encounter Details Date Type Department Care Team (Late st Contact Info) Description 02/16/2024 1:00 PM CDT Office Visit [facility] [address] [phone] Adam Grover MD [address] [address] SVT (supraventricular tachycardia) (HCC) (Primary Dx); Cardiac arrhythmia, unspecified cardiac arrhythmia type Social History Tobacco Use Types Packs/Day Years [...] on file 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 [facility] VISIT NOTE Assessment and Plan SVT (supraventricular tachycardia) EPS with AV node modification in December 2023. No recurrences. Typical atrial flutter EPS with CTI-RFA in December 2023. No recurrences. Follow up in 12 months. Subjective Chief Complaint Follow-up for SVT and atrial flutter History of Present Illness Maria E Key is a 68 y.o. female history who returns today for follow-up of her SVT and atrial flutter. In December 2023, she underwent an EPS and was found to have typical AV ibeth reentrant tachycardia and typical atrial flutter. 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 She reports that she has been doing very well without any recurrent arrhythmiassince her procedure. Objective Physical Exam BP 136/74 Pulse 63 Ht 154.9 cm (5' 1 ) Wt 62.6 kg (138 lb) BMI 26.07 kg/m?? Physical Exam Constitutional: Appearance: Normal appearance. Cardiovascular: Rate and Rhythm: Normal rate and regular rhythm. Pulmonary: Effort: Pulmonary effort is normal. No respiratory distress. Breath sounds: Normal breath sounds. Neurological: General: No focal deficit present. Mental Status: She is alert and oriented to person, place, and time. Psychiatric: Mood and Affect: Mood normal. Behavior: Behavior normal. Diagnostic Data EKG: Sinus rhythm. No ischemic ST-T changes. QTc 435. Adam Grover MD [facility] [address] [place] [address], [address], [place] [address] documented in this encounter Plan of Treatment Not on file documented as of this encounter Procedures Procedure Name Priority Date/Time Associated Diagnosis Comments ECG 12-LEAD Routine 02/16/2024 1:28 PM CDT Cardiac arrhythmia, unspecified cardiac arrhythmia type documented in this encounter Results * ECG 12 lead (02/16/2024 1:28 PM CDT) us Adam Grover MD ECG ORDERABLES Final Re sult documented in this encounter Visit Diagnoses Diagnosis SVT (supraventricular tachycardia) (HCC)- Primary Other specified cardiac dysrhythmias Cardiac arrhythmia, unspecified cardiac arrhythmia type documented in this encounter Care Teams Desk Editor Relationship Specialty Start Date End Date Donnie Sanon MD PCP - General Family Practice 06/23/23 Eun Ballesteros PA [address] [place] [address] Internal Medicine 06/23/23 Crow Soliz DO [address] [address] Referring Physician Internal Medicine 01/29/24 documented as of this encounter
--- OUTSIDE RECORDS SUMMARY | 2024-08-08 10:09 | XMS_ITS | Encounter Summary ---
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] Strabismus [H50.9] Procedures GA STRABISMUS RECESSION/RESCJ 2 HRZNTL MUSC RECESSION - EYE MUSCLE Referral ID Status Reason Start Date Expiration Date Visits Re quested Visits Authorized [id number] 1 1 Encounter Details Date Type Department Care Team (Late st Contact Info) Description 11/20/2023 8:18 AM CDT Anesthesia Event [facility] [address] [place] [address] Deuce Vick MD [address] [place] [address] Brenda Chau NP [address] [facility] [phone] [place] [address] Anesthesia Record Procedure Summary Procedure Name Responsible Anesthesiologist Anesthesia Start Time Anesthesia Stop Time RECESSION - EYE MUSCLE (Right: Eye) Deuce Vick MD 11/20/23 0818 11/20/23 0901 Events Date Time Event Comment 11/20/2023 0727 0818 An Start 0818 An Start Data 0819 In Room 0821 An Induction The patient was reevaluated immediately before moderate or deep sedation use and before anesthesia induction. 0822 An LMA 0825 Anesthesia Ready 0827 Proc Start 0827 Incision Start 0856 Airway Removed 0856 an stop data 0856 Proc Fin 0857 Out of Room 0901 An Stop 0901 Handoff to RN I completed my handoff [...] Patient disposition at the time of handoff: No value filed. Meds Name Total lidocaine (cardiac) syringe 2 % 40 mg propofol 150 mg ondansetron PF (ZOFRAN) 2 mg/mL injectio n 4 mg dexAMETHasone 4 mg/mL 4 mg ketorolac 30 mg Lactated Ringer's (LR) infusion 0 mL * Agents Name O2 N2O Air Sevoflurane Inspired Sevoflurane * Blood No blood administrations on file. Lines, Drains, and Airways Type Details Placement Removal Peripheral IV Placement Date: 11/20/23; Placement Time: 714; Catheter Size: 22 G; Orientation: Right; Location: Hand; Technique: Anatomical landmarks; Insertion Attempts: 1; Patient Tolerance: Tolerated well; Removal Date: 11/20/23; Removal Time: 0911/20/23 0715 by Tari Alvarenga RN 11/20/23 0943 by Rene Upton RN Supraglottic Airway Placement Date: 11/20/23; Placement Time: 825 (created via procedure documentation); Size: 4; Insertion Attempts: 1; Removal Date: 11/20/23; Removal Time: 0811/20/23 08 by Arcenio Casanova CRNA 11/20/23 0856 by Arcenio Casanova CRNA RETIRED Surgical Site 11/20/23; 0831; Ri ght; Eye; 07/20/24 (Retired LDA, Removed/Completed by [facility] with LDA Utility); 1213 (Retired LDA, Removed/Completed by [facility] with LDA Utility) 11/20/23 0831 by Kinga Valerio RN 07/20/24 1213 by Discharge Provider, Automatic documented in this encounter Social History Tobacco [...] on file 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 Gender Identity Not on file Sexual Orientation Not on file documented as of this encounter OR Notes * Anesthesia Postprocedure Evaluation - Deuce Vick MD - 11/20/2023 9:13 AM CDT Patient: Maria E Key Procedure Summary Date: 11/20/23 Room / Location: [facility] OPERATING ROOM 02 / [facility] Operating Room Anesthesia Start: 817 Anesthesia Stop: 900 Procedure: RECESSION - EYE MUSCLE (Right: Eye) Diagnosis: Consecutive exotropia of right eye Strabismus (Consecutive exotropia of right eye [H50.111]) (Strabismus [H50.9]) Providers: Cristian Lama III, MD Responsible Provider: Deuce Vick MD Anesthesia Type: general ASA Status: 2 Anesthesia Type: general Last vitals BP 119/61 Pulse 69 Temp 36.3 ??C (97.3 ??F) (Temporal) Resp 16 SpO2 96% Anesthesia Post Evaluation Patient location during evaluation: PACU Patient participation: complete - patient participated Level of consciousness: fully awake, follows simple commands and 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 * Anesthesia Procedure Notes - Arcenio Casanova CRNA - 11/20/2023 8:26 AM CDTAssociated Order(s): Airway Airway Patient location: OR Urgency: elective Indications for airway management: anesthesia Difficult airway: no Staff: Supervising provider: Deuce Vick MD Placed by: MEDICAL GENETICIST: Arcenio Casanova CRNA Emergent airway documentation: Risks and benefits discussed: yes Consent obtained: yes Consent given by: patient Airway prep: Preoxygenated: yes Patient position: sniffing MILS maintained throughout: yes Spontaneous ventilation during airway: absent Sedation level during airway: GA Final airway details: Final airway type: supraglottic airway Final supraglottic airway: IGel SGA size: 4 Number of attempts: 1 * Anesthesia Preprocedure Evaluation - Deuce Vick MD - 11/18/2023 2:21 PM CDT Images from the original note were not included. [facility] Preoperative [facility] Planning Preoperative Evaluation Record Evaluation type/location: [facility] Planned procedure site: [facility] OR Date: 11/18/23 NOTE: This note [...] - Pertinent negatives: hypertension ; CAD ; PR ; CABG ; atrial fibrillation; pacemaker/ICD; PVD; [...] provided by telephone and electronically sent via [employer]. Patient verbalized understanding of instructions. Blood bank needs for day of procedure: No type and screen needed Pending labs/tests include: None TPAP process complete. Preoperative evaluation performed by Brenda Ryan NP on 11/18/23 at 2:25 PM . Patient Active Problem List Diagnosis Date Noted ??? Consecutive exotropia of right eye 11/05/2023 ??? Strabismus 11/05/2023 ??? Palpitations ??? Elevated TSH Past Medical History: Diagnosis Date ??? Mitral valve regurgitation mild Past Surgical History: Procedure Laterality Date ??? EYE SURGERY N/A 1960 ??? TUBAL LIGATION Bilateral 1981 OB History No [...] medications for this encounter. Current Outpatient Medications: ??? ascorbic acid (VITAMIN C ORAL) ??? ibuprofen 200 mg tab/cap ??? UNABLE TO FIND ??? [START ON 11/21/2023] prednisoLONE acetate (PRED FORTE) 1 % ophthalmic suspension ??? [START ON 11/20/2023] tobramycin-dexAMETHasone (TOBRADEX) ophthalmic ointment Social History Tobacco Use Smoking Status Former ??? Current packs/day: 0.00 ??? Average packs/day: 1 pack/day for 27.0 years (27.0 ttl pk-yrs) ??? Types: Cigarettes ??? Start date: 1974 ??? Quit date: 2001 ??? Years since quittin.2 ??? Passive exposure: Never Smokeless Tobacco Never Alcohol Use: Not At Risk (11/05/2023) AUDIT-C ??? Frequency of Alcohol Consumption: 2-4 times a month ??? Average Number of Drinks: 1 or 2 ??? Frequency of Binge Drinking: Never Substance and Sexual Activity Drug Use Never Family History Problem Relation Age of Onset ??? Cancer Mother ??? Heart disease Mother ??? COPD Mother ??? COPD Father ??? Cancer Brother ??? No Known Problems Maternal Grandmother ??? No Known Problems Maternal Grandfather ??? No Known Problems Paternal Grandmother ??? No Known Problems Paternal Grandfather ??? Crohn's disease Daughter ??? No Known Problems Son ??? No Known Problems Mother's Sister ??? No Known Problems Mother's Brother ??? No Known Problems Father's Sister ??? No Known Problems Father's Brother ??? Anesthesia problems Neg Hx ??? Malig Hyperthermia Neg Hx ??? Pseudochol deficiency Neg Hx There were no vitals filed for this visit. Qing index score: 100 DOS Physical Exam Medical history, medications, and allergies reviewed. Attestation: I endorse the findings of the anesthesia pre-evaluation assessment dated: 11/18/2023. Airway Exam: Mallampati: II TM distance: normal Cardiovascular Exam: Rate: regular Rhythm: regular Pulmonary Exam: LCTA, bilat Anesthesia Plan ASA 2 My patient is approved for the Anesthesia Controlled Medication protocol when under care of a MEDICAL GENETICIST Planned anesthesia: General Consent and Attending signature: I and/or my [...] Procedure Name Priority Date/Time Associated Diagnosis Comments GA AN PROCEDURE PLACEHOLDER Routine 11/20/2023 8:26 AM CDT GA AN ELECTIVE SUPRAGLOTTIC AIRWAY Routine 11/20/2023 8:26 AM CDT documented in this encounter Results * GA AN ELECTIVE SUPRAGLOTTIC AIRWAY, GA AN PROCEDURE PLACEHOLDER (11/20/2023 8:26 AM CDT) Narrative Arcenio Casanova CRNA - 11/20/2023 8:26 AM CDT Arcenio Casanova CRNA ? 11/20/2023 ??8:26 AM Airway Patient location: OR Urgency: elective Indications for airway management: anesthesia Difficult airway: no Staff: Supervising provider: Deuce Vick MD Placed by: MEDICAL GENETICIST: Arcenio Casanova CRNA Emergent airway documentation: Risks and benefits discussed: yes Consent obtained: yes Consent given by: patient Airway prep: Preoxygenated: yes Patient position: sniffing MILS maintained throughout: yes Spontaneous ventilation during airway: absent Sedation level during airway: GA Final airway details: Final airway type: supraglottic airway Final supraglottic airway: IGel SGA size: 4 Number of attempts: 1 Deuce Vick MD ANESTHESIA ORDERABLES Final Result documented in this encounter Visit Diagnoses Not on filedocumented in this encounter Administered Medications Inactive Administered Medications - up to 3 most recent administrations Medication Order MAR Action Action Date Dose Rate Site dexAMETHasone (DECADRON) 4 mg/mL injection intravenous, Administer over 2 Minutes, As needed, Starting on Ayanna 11/20/23 at 0825, Anesthesia Intra-op Given 11/20/2023 8:25 AM CDT 4 mg ketorolac (TORADOL) 30 mg/mL injection intravenous, As needed, Starting on Ayanna 11/20/23 at 0825, Anesthesia Intra-op Given 11/20/2023 8:25 AM CDT 30 mg Lactated Ringer's (LR) infusion 30 mL/hr, intravenous, Continuous, Starting on Ayanna 11/20/23 at 0745, Pre-Op Rate/Dose Change 11/20/2023 8:25 AM CDT 30 mL/hr Rate/Dose Verify 11/20/2023 8:18 AM CDT 30 mL/h r New Bag 11/20/2023 7:15 AM CDT 30 mL/hr 30 mL/hr lidocaine (cardiac) (XYLOCAINE) preservative free injection intravenous, As needed, Starting on Ayanna 11/20/23 at 0821, Anesthesia Intra-op, Indications: Ventricular ArrhythmiasIndications:Ventricular Arrhythmias Given 11/20/2023 8:21 AM CDT 40 mg ondansetron (ZOFRAN) injection intravenous, Administer over 2 Minutes, As needed, Starting on Ayanna 11/20/23 at 0825, Anesthesia Intra-op Given 11/20/2023 8:25 AM CDT 4 mg propofoL (DIPRIVAN) 10 mg/mL IV intravenous, As needed, Starting on Ayanna 11/20/23 at 0821, Anesthesia Intra-op New Bag 11/20/2023 8:21 AM CDT 150 mg documented in this encounter Care Teams Mat Gauger Relationship Specialty Start Date End Date Donnie Sanon MD PCP - General Family Practice 06/23/23 Eun Ballesteros PA [address] [place] [id number] Internal Medicine 06/23/23 documented as of this encounter
--- OUTSIDE RECORDS SUMMARY | 2024-08-08 10:09 | XMS_ITS | Encounter Summary ---
Author Organization [facility] Address [address] [place] [address] Care Team Providers Care Staff Design Engineer Name Role Phone Donnie Sanon MD Primary Care Provider [phone] Eun Ballesteros Unavailable [phone] Reason for Visit * Consultation (Routine) - Pending Review Specialty Diagnoses / Procedures Referred By Ana juarez Referred To Contact Cardiology Diagnoses SVT (supraventricular tachycardia) (HCC) Crow Soliz DO [address] [place] [address] Phone: tel: fax: Adam Grover MD [address] [address] Phone: tel: fax: Referral ID Status Reason Start Date Expiration Date Visits Requested Visits Authorized [id number] Pending Review Specialty Services Required 12/18/2023 01/15/2025 12 12 Encounter Details Date Type Department Care Team (Late st Contact Info) Description 12/26/2023 10:30 AM CDT Office Visit [facility]ia Center [address] [facility] [address] [place] [phone] Adam Grover MD [address] [address] Cardiac arrhythmia, unspecified cardiac arrhythmia type (Primary Dx); SVT (supraventricular tachycardia) (HCC) Social History Tobacco Use Types Packs/Day Years [...] on file Legal Sex Female 1:[address] Gender Identity Not on file Sexual Orientation Not on file documented as of this encounter Last Filed Vital Signs Vital Sign Reading Time Taken Comments Blood Pressure 143/84 12/26/2023 10:56 AM CDT Pulse 63 12/26/2023 10:56 AM CDT Temperature - - Respiratory Rate - - Oxygen Saturation - - Inhaled Oxygen Concentration - - Weight 63 kg (139 lb) 12/26/2023 10:56 AM CDT Height 154.9 cm (5' 0.98 ) 12/26/2023 10:56 AM C DT Body Mass Index 26.28 12/26/2023 10:56 AM CDT documented in this encounter Progress Notes * Adam Grover MD - 12/26/2023 10:30 AM [...] rates in the 170s-190s. Adam Grover MD [facility] [address] [place] [address], [address], [place] [address] documented in this encounter Plan of Treatment Not on file documented as of this encounter Procedures Procedure Name Priority Date/Time Associated Diagnosis Comments ECG 12-LEAD Routine 12/26/2023 Cardiac arrhythmia, unspecified cardiac arrhythmia type documented in this encounter Results * ECG 12 lead (12/26/2023) Adam Grover MD ECG ORDERABLES Final Re sult documented in this encounter Visit Diagnoses Diagnosis Cardiac arrhythmia, unspecified cardiac arrhythmia type- Primary SVT (supraventricular tachycardia) (HCC) Other specified cardiac dysrhythmias documented in this encounter Historical Medications * This list may reflect changes made after this encounter. metoprolol XL (TOPROL-XL) 25 mg extended release tablet Take 1 tablet (25 mg total) by mouth daily 11/28/2023 atorvastatin (LIPITOR) 10 mg tablet Take 1 tablet (10 mg total) by mouth daily 11/25/2023 added in this encounter Orders Outpatient Referral Count Last Ordered Date Fir st Ordered Date AMB REFERRAL TO CARDIAC ELECTROPHYSIOLOGY 1 12/26/2023 documented in this encounter Care Teams Staff Design Engineer Relationship Specialty Start Date End Date Donnie Sanon MD PCP - General Family Practice 06/23/23 Eun Ballesteros PA [address] [place] [id number] Internal Medicine 06/23/23 documented as of this encounter
--- OUTSIDE RECORDS SUMMARY | 2024-08-08 10:09 | XMS_ITS | Encounter Summary ---
Author Organization [facility] Address [address] [place] [address] Care Team Providers Care Cleaner Operator Name Role Phone Donnie Sanon MD Primary Care Provider [phone] Eun Ballesteros Unavailable [phone] Reason for Visit * Auth/Cert (Routine) Specialty Diagnoses / Procedures Referred By Ana t Referred To Contact Diagnoses SVT (supraventricular tachycardia) (HCC) SVT (supraventricular tachycardia) (HCC) [I47.10] Procedures ABLATION SUPRAVENTRICULAR TACHYCARDIA (SVT) 13442 Referral ID Status Reason Start Date Expiration Date Visits Re quested Visits Authorized [id number] 1 1 Encounter Details Date Type Department Care Team (Latest Contact Info) Description 01/16/2024 10:25 AM CDT - 01/16/2024 1:15 PM CDT Surgery [facility] Electrophysiology Lab [address] [place] [id number] Adam Grover MD [address] [facility] [address], [place] [address] ABLATION SUPRAVENTRICULAR TACHYCARDIA (SVT) 63547 Surgery Details Date/Time Status Location OR Service Patient Class Case Class Case Type Trauma Case? 01/16/2024 10:25 AM Posted [facility] EP LAB EP D Cardiovascular Outpatient Elective Panel 1 Procedure LRB Anes Op Region Wound Class Comments ABLATION SUPRAVENTRICULAR TA CHYCARDIA (SVT) 94425 N/A Choice ABLATE ADDTN'L ARRHYTHMIA, A TRIAL OR VENTRICULAR (+) 58351 N/A Surgeon Surgeon Role Service Panel Adam Grover MD Primary Cardiovascular 1 Case Notes BULLET CASTING OPERATOR/NAVIXSVT documented in this encounter Social History Tobacco Use Types Packs/Day Years Used Date Smoking Tobacco: Former Cigarettes 1 27 1 [id number] Passive Smoke Exposure: Never Smokeless Tobacco: Never [...] on file 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 Gender Identity Not on file Sexual Orientation Not on file documented as of this encounter Last Filed Vital Signs Vital Sign Reading Time Taken Comments Blood Pressure 163/74 01/16/2024 9:10 AM CDT Pulse 66 01/16/2024 9:10 AM CDT Temperature 37 ??C (98.6 ??F) 01/16/2024 9:10 AM CDT Respiratory Rate 20 01/16/2024 9:10 AM CDT Oxygen Saturation 98% 01/16/2024 9:10 AM CDT Inhaled Oxygen Concentration - - Weight 60.8 kg (134 lb 1.6 oz) 01/16/2024 9:10 A M CDT Height 154.9 cm (5' 1 ) 01/16/2024 9:10 AM CDT Body Mass Index 25.34 01/16/2024 9:10 AM CDT documented in this encounter Discharge Instructions * Discharge Instructions* Josephine Oseguera RN - 01/16/2024 9:14 AM CDT Cardiac Laboratory [facility] [place], [place] [address] [facility] Discharge Instructions---Angiogram MEDICATIONS [] Do not take [...] for any reason without discussing with your product strategy director first. - These medications may make you [...] home diet [] Special diet Instructed by Training And Development Coordinator ACTIVITY You have been given medications which [...] Take by mouth every morning Med Name: Rasheeda Gipson Promise- 1 tablet documented as of this [...] for : Procedure(s): ABLATION SUPRAVENTRICULAR TACHYCARDIA (SVT) 29319 Source Note - Adam Grover MD - [...] rates in the 170s-190s. Adam Grover MD [facility] Medical Group Arrhythmia Center [address] [facility], [place] [address] documented in this encounter Plan of Treatment [...] ?? Follow-up: 6 weeks. Adam Grover MD, [facility] Medical Group Arrhythmia Center [address], [place] [address] Narrative 01/16/2024 2:32 PM CDT Table formatting from the original result was not included. Images from the original result were not included. ELECTROPHYSIOLOGY SERVICES REPORT PRIMARY PROCEDURE(S): Comprehensive electrophysiologic evaluation with ablation treatment for supraventricular tachycardia (14008) ADD-ON PROCEDURE COMPONENTS: Intracardiac catheter ablation of a discrete mechanism of arrhythmia (+50656) INDICATION(S): ??Paroxysmal supraventricular tachycardia ANESTHESIA TYPE: Monitored [...] sinus (CS) catheter, which resulted in a fnlhswbl-fh-txjkbd pattern of activation in a duodecapolar catheter (DUO) positioned along the lateral wall of the right atrium along the Cristae Terminalis, with a proximal-CS to distal-DUO time of 126 ms; (2) pacing from the distal portion of the duodecapolar catheter, which resulted in a iagyoh-ub-zgroiair pattern of activation in the duodecapolar catheter [...] ostium in the inferior aspect of the [place]. ??A localized 3D electroanatomic map of this region was created using the UTOPY X mapping system. RF application was initiated utilizing [...] area in stable condition. CONDUCTION INTERVALS: RR ND QRS QT AH HV Baseline: 727 166 [...] PPI-TCL of >115 ms. ELECTROANATOMICAL MAPPING SYSTEM: Ensite X VASCULAR ACCESS SUMMARY: ? Right femoral vein: 8 F, 7 F ? Left femoral vein: 5 F, 5 F, 7 F ESTIMATED BLOOD LOSS: <5 cc IODINATED CONTRAST VOLUME: 0 cc FLUOROSCOPY TIME: 0 min FLUOROSCOPY DOSE: 0 Gy? ? cm2 COMPLICATIONS: None. us Adam Grover MD CV ELECTROPHYSIOLOGY PRO CS Final Result * ECG 12 lead (01/16/2024 9:20 AM CDT) 01/16/2024 9:20 AM CDT Narrative [facility] - 01/16/2024 12:45 PM CDT Vent Rate: 64 bpm RR Interval: 932 msec ND Interval: 151 msec QRS Duration: 92 msec QT Interval: 430 msec QTC Interval: 439 msec P-R-T [place]: 48 - -33 - -7 degrees IMPRESSION: SINUS RHYTHM LEFT AXIS DEVIATION ??[QRS AXIS < -30] ABNORMAL ECG Electronically Signed By: Justin Raymond MD us Adam Grover MD ECG ORDERABLES Final Re sult [facility] * Differential, auto (01/16/2024 9:10 AM CDT) Neutrophil abs 3.5 1.5 - 6.5 K/cumm Imm gran abs 0.0 0.0 - 0.1 K/cumm [facility] Lymphocyte abs 2.4 0.8 - 3.3 K/cumm [facility] Monocyte abs 0.8 0.2 - 0.8 K/cumm [facility] Eosinophil abs 0.1 0.0 - 0.5 K/cumm [facility] Basophil abs 0.1 0.0 - 0.1 K/cumm [facility] Neutrophil pct 50.6 % [facility] Comment: Interpretive Data Percent cell count reference ranges are not reported, since discordance with absolute values may lead to misinterpretation of CBC data. Current Interpretive Data was last revised on 2017. Imm gran pct 0.3 % [facility] Comment: Interpretive Data Percent cell count reference ranges are not reported, since discordance with absolute values may lead to misinterpretation of CBC data. Current Interpretive Data was last revised on 2017. Lymphocyte pct 35.3 % [facility] Comment: Interpretive Data Percent cell count reference ranges are not reported, since discordance with absolute values may lead to misinterpretation of CBC data. Current Interpretive Data was last revised on 2017. Monocyte pct 11.2 % [facility] Comment: Interpretive Data Percent cell count reference ranges are not reported, since discordance with absolute values may lead to misinterpretation of CBC data. Current Interpretive Data was last revised on 2017. Eosinophil pct 1.6 % [facility] Comment: Interpretive Data Percent cell count reference ranges are not reported, since discordance with absolute values may lead to misinterpretation of CBC data. Current Interpretive Data was last revised on 2017. Basophil pct 1.0 % [facility] Comment: Interpretive Data Percent cell count reference ranges are not reported, since discordance with absolute values may lead to misinterpretation of CBC data. Current Interpretive Data was last revised on 2017. Blood 01/16/2024 9:10 AM CDT 01/16/2024 9:17 AM CDT us Adam Grover MD LAB BLOOD ORDERABLES Fin al Result [facility] [address] Department [place] [address] * (ABNORMAL) CBC with auto differential (01/16/2024 9:10 AM CDT) WBC 6.9 3.8 - 9.9 K/cumm Hgb 13.4 11.9 - 15.5 g/dL [facility] Hct 41.3 35.6 - 45.5 % [facility] Plt 344 150 - 400 K/cumm [facility] MPV 8.9(L) 9.1 - 12.3 fL [facility] RBC 4.65 3.90 - 5.20 M/cumm [facility] MCV 88.8 81.3 - 96.4 fL [facility] MCH 28.8 27.1 - 33.3 pg [facility] MCHC 32.4 32.3 - 35.7 g/dL [facility] RDW CV 13.4 11.1 - 14.9 % [facility] RDW SD 43.8 35.7 - 48.1 fL [facility] NRBC abs 0.00 0.00 - 0.01 K/cumm [facility] Blood 01/16/2024 9:10 AM CDT 01/16/2024 9:17 AM CDT Adam Grover MD LAB BLOOD ORDERABLES Fin al Result [facility] [address] Department [place] [address] documented in this encounter Visit Diagnoses Diagnosis [...] MAR Action Action Date Dose Rate Site heparin in 0.9% sodium chloride 2,000 unit/1,000 mL (2 unit/mL) infusion (premix) Code/trauma/sedation medication, Starting on Fri01/16/24 at 1237, Intra-Procedure (CV) Given 01/16/2024 12:37 PM CDT 1,000 mL lidocaine-EPINEPHrine (XYLOCAINE with EPI) 2 %-1:100,000 injection Code/trauma/sedation medication, Starting on Fri01/16/24 at 1234, Intra-Procedure (CV), Indications: Administration of Local AnesthesiaIndications:Admini stration of Local Anesthesia Given 01/16/2024 12:34 PM CDT 5 mL Right Groin Given 01/16/2024 12:34 PM CDT 5 mL L eft Groin sodium chloride 0.9% infusion 50 mL/hr, intravenous, [...] ider: Silverio Price CRNA)1400 (Paused - Provider: Silverio Price CRNA - Comment: Switch to gravity)1401 [...] Infusion - 0.9% Sodium Chloride 1 01/16/2024 sodium chloride 0.9% flush 0.5-20 [...] 01/16/2024 documented in this encounter Care Teams Cleaner Operator Relationship Specialty Start Date End Date Donnie Sanon MD PCP - General Family Practice 06/23/23 Eun Ballesteros PA [address] [place] [address] Internal Medicine 06/23/23 documented as of this encounter
--- OUTSIDE RECORDS SUMMARY | 2024-08-08 10:09 | XMS_ITS | Referral Summary ---
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 [employer] 10/30/2025 800-612C-1 [id number] / [id number] / [id number] [employer] Vascade Mvp 6-12fr Venous Closure [id number] - [id number] - [id number] Implanted:Qty: 1 on 01/16/2024 by Adam Grover MD at [facility] [employer] 07/18/2025 800-612C-1 0U / [id number] / [id number] [employer] Vascade Mvp 6-12fr Venous Closure [id number] - [id number] - [id number] Implanted:Qty: 1 on 01/16/2024 by Adam Grover MD at [facility] [employer] 08/04/2025 800-612C-1 0U / [id number] / [id number] [employer] Device Closure Vascade Od5 Fr Femoral Artery [id number] - [id number] - [id number] Implanted:Qty: 1 on 01/16/2024 by Adam Grover MD at [facility] [employer] 10/21/2025 700-500DX- 05U / [id number] / [id number] [employer] Device Closure Vascade Od5 Fr Femoral Artery [id number] - [id number] - [id number] Implanted:Qty: 1 on 01/16/2024 by Adam Grover MD at [facility] [employer] 10/26/2025 700-500DX- 05U / [id number] 13A / [id number] Insurance [facility] Advance Directives For more information, please contact: [phone] * Full Code (Latest Code Status on File) Date Activated Date Inactivated Comments 09/14/2017 12:16 AM 09/14/2017 1:33 PM * Full Code Date Activated Date Inactivated Comments 09/13/2017 12:43 PM 09/14/2017 12:16 AM Care Teams Marketing Business Analyst Relationship Specialty Start Date End Date Donnie Sanon MD PCP - General Family Practice 06/23/23 Eun Ballesteros PA [address] [facility] [address] [place] [address] Internal Medicine 06/23/23 Crow Soliz DO [address] [facility] [address] [place] [address] Referring Physician Internal Medicine 01/29/24
--- OUTSIDE RECORDS SUMMARY | 2024-08-08 10:09 | XMS_ITS | Encounter Summary ---
Author Organization [facility] Address [address] [place] [address] Care Team Providers Care Real Estate Accountant Name Role Phone Unavailable Primary Care Provider Unavailabl e Encounter Details Date Type Department Care Team (Late st Contact Info) Description 11/18/2020 Lab Requisition [facility] [place] [facility] Public Health Community Testing [facility] [address] [place] [address] Bari Batista MD [address] [place] [address] [place] [address] Social History Tobacco Use Types Packs/Day Years Used Date Smoking Tobacco: Never Assessed Comments Unknown Sex and Gender Information Value Date Recorded Sex Assigned at Not on file Legal Sex Female 8:39 PM CDT Gender Identity Not on file Sexual Orientation Not on file documented as of this encounter Plan of Treatment Not on file documented as of this encounter Procedures Procedure Name Priority Date/Time Associated Diagnosis Comments SARS-COV-2 PCR [facility] ONLY Routine 11/18/2020 1:06 PM CDT documented in this encounter Visit Diagnoses Not on filedocumented in this encounter Additional Health Concerns Infection Onset Date Last Indicated Resolved Time COVID - 19 Confirmed 11/18/2020 11/18/2020 021 12:18 AM CDT documented as of this encounter
--- OUTSIDE RECORDS SUMMARY | 2024-08-08 10:09 | XMS_ITS | Encounter Summary ---
Author Organization [facility] Address [address] [place] [address] Care Team Providers Care Remnants Cutter Name Role Phone Donnie Sanon MD Primary Care Provider [phone] Eun Ballesteros Unavailable [phone] Reason for Visit * Reason Onset Date Comments Insurance Referrals 12/18/2023 Encounter Details Date Type Department Care Team (Late st Contact Info) Description 12/18/2023 Telephone Arrhythmia Center [address] [facility] [address] [place] [id number] Adam Grover MD [address] [facility] [address] [address] Insurance Referrals Social History Tobacco Use Types Packs/Day Years [...] on file 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 Gender Identity Not on file Sexual Orientation Not on file documented as of this encounter Miscellaneous Notes * Telephone Encounter - Thea Crowder - 12/18/2023 11:15 AM CDT Rcvd [facility] Referral [id number] 12 viists 12/18/23 to 12/18/24 from Donnie Sanon MD's office documented in this encounter Plan of Treatment Not on file documented as of this encounter Visit Diagnoses Not on filedocumented in this encounter Care Teams Remnants Cutter Relationship Specialty Start Date End Date Donnie Sanon MD PCP - General Family Practice 06/23/23 Eun Ballesteros PA [address] [place] [address] Internal Medicine 06/23/23 documented as of this encounter
--- OUTSIDE RECORDS SUMMARY | 2024-08-08 10:09 | XMS_ITS | Encounter Summary ---
Author Organization [facility] Address [address] [place] [address] Care Team Providers Care Belt Weaver Name Role Phone Unavailable Primary Care Provider Unavailabl e Encounter Details Date Type Department Care Team (Late st Contact Info) Description 11/18/2020 1:00 PM CDT Rapid Evaluation [place] [facility] Community Testing [facility] [address] [place] [address] Social History Tobacco Use Types Packs/Day Years [...]
--- OUTSIDE RECORDS SUMMARY | 2024-08-08 10:09 | XMS_ITS | Encounter Summary ---
Author Organization [facility] Address [address] [place] [address] Phone Care Team Providers Care Overcoiler Name Role Phone Donnie Sanon MD Primary Care Provider [phone] Eun Ballesteros Unavailable Reason for Visit * Reason Onset Date Comments Scheduling Appointments 06/23/2023 Encounter Details Date Type Department Care Team (Late st Contact Info) Description 06/23/2023 Telephone [facility] Ophthalmology [facility] [place] [address] No, Physician Scheduling Appointments Social History Tobacco Use Types Packs/Day Years Used Date Smoking Tobacco: Never Assessed Comments Unknown Sex and Gender Information Value Date Recorded Sex Assigned at Not on file 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 - 06/23/2023 3:53 PM CST Received notes on one of the pages it mentioned urgent, the notes did also mention pt referred for exotropia and eye muscle surgery eval for this. Called office to inform them this is not an urgent issue, office is aware and they did verify pt referred to Dr. Lama for strabismus surgery eval called pt and offered first availability sep pt req further out for a later morning appt time then offered october 29 pt fine with this gave her all appt info TER DESIGNER * Telephone Encounter - Bhavna Perez - 06/23/2023 1:42 PM SWEATER DESIGNER New PT APPT Request: Who pt is being referred to: Dr Hernandez (Dr Lama) Reason/Diagnoses: OD exotropia Referring doctor: Dr Johnnie Rangel Referring doctor contact information:[phone] How soon: first avail Transfer of care or 2nd opinion? trsnfr Were notes requested? yes Additional comments: TER DESIGNER documented in this encounter Plan of Treatment Not on file documented as of this encounter Visit Diagnoses Not on filedocumented in this encounter Care Teams Overcoiler Relationship Specialty Start Date End Date Donnie Sanon MD PCP - General Family Practice 06/23/23 Eun Ballesteros PA [address] [place] [address] [place] [address] Internal Medicine 06/23/23 documented as of this encounter
--- OUTSIDE RECORDS SUMMARY | 2024-08-08 10:09 | XMS_ITS | Encounter Summary ---
Author Organization [facility] Address [address] [place] [address] Care Team Providers Care Automation/Controls Manager Name Role Phone Donnie Sanon MD Primary Care Provider [phone] Eun Ballesteros Unavailable [phone] Reason for Visit * Reason Onset Date Comments office visit notes request 01/26/2024 Encounter Details Date Type Department Care Team (Late st Contact Info) Description 01/26/2024 Telephone Arrhythmia Center [address] [facility] [address] [place] [id number] Adam Grover MD [address] [facility] [address], [place] [address] office visit notes request Social History Tobacco Use Types Packs/Day Years [...] on file 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 Soliz's office called stating they have requested office visit notes from [facility] 12/26/23w/Dr. Grover to be faxed to them at [phone] Attn Brisa documented in this encounter Plan of Treatment Not on file documented as of this encounter Visit Diagnoses Not on filedocumented in this encounter Care Teams Automation/Controls Manager Relationship Specialty Start Date End Date Donnie Sanon MD PCP - General Family Practice 06/23/23 Eun Ballesteros PA [address] [place] [address] Internal Medicine 06/23/23 documented as of this encounter
--- OUTSIDE RECORDS SUMMARY | 2024-08-08 10:09 | XMS_ITS | Clinical Summary ---
Author Organization [facility] Address [address] [address] Phone Care Team Providers Care Swage Tender Name Role Phone Unavailable Primary Care Provider Unavailabl e Social History Tobacco Use Types Packs/Day Years Used Date Smoking Tobacco: Never Assessed Comments Unknown Sex and Gender Information Value Date Recorded Sex Assigned at Not on file Legal Sex Female 8:39 PM CDT Gender Identity Not on file Sexual Orientation Not on file Plan of Treatment Health Maintenance Due Date Last Done Comments DEXA Bone Density 1955 Hepatitis C Virus (HCV) Screening 1955 Colonoscopy 2001 Colorectal Cancer Screening 2001 Cologuard 2006 Immunochemical Fecal Occult Blood 2006 Mammogram 2006 Zoster Immunization (1 of 2) 2006 Pneumococcal Immunization (50+ years) (2 of 2 - PCV) 2021 08/18/2013 SARS-COV-2 Immunization (3 - season) 2023 01/19/2021, 12/29/2020 Influenza Immunization (#1) 04/18/202405/18, 06/16/2018, 05/27/2017, Additional history exists Pneumococcal Immunization Combined Discontinued 08/18/2013 DTaP/Tdap/Td Immunization Discontinued 12/16/2013, 08/2013 TdaP Immunization Completed 12/16/2013, 11/16/2013 Hepatitis B Immunization Aged Out No longer eligible based on patient's age to complete this topic Meningococcal Immunization (ACWY) Aged Out No longer eligible based on patient's age to complete this topic Rotavirus Immunization Aged Out No lo nger eligible based on patient's age to complete this topic
--- OUTSIDE RECORDS SUMMARY | 2024-08-08 10:09 | XMS_ITS | Encounter Summary ---
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] Strabismus [H50.9] Procedures [place] STRABISMUS RECESSION/RESCJ 2 HRZNTL MUSC RECESSION - EYE MUSCLE Referral ID Status Reason Start Date Expiration Date Visits Re quested Visits Authorized [id number] 1 1 Encounter Details Date Type Department Care Team (Latest Contact Info) Description 11/20/2023 6:07 AM CDT - 11/20/2023 9:44 AM CDT Hospital Encounter [facility] Surgery at [facility] [address] [place] [address] Cristian Lama III, MD [address] [facility] [address] [place] [address] 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 [id number] pain medications may be taken as needed [...] cannot be sent through Care Everywhere. * [facility] PATHWAY TO EXCELLENT CARE AFTER SURGERY documented [...] in this encounter H&P Notes * Cristian Lmaa III, MD - 11/20/2023 7:10 AM CDT [...] Preoperative Evaluation Record Evaluation type/location: [facility] Planned procedure site: [facility] OR Date: 11/18/23 NOTE: This note represents [...] - Pertinent negatives: hypertension ; CAD ; SC ; CABG ; atrial fibrillation; pacemaker/ICD; PVD; [...] provided by telephone and electronically sent via [employer]. Patient verbalized understanding of instructions. Blood bank [...] with infraplacement SURGEON: Cristian Lama III, MD EDUCATIONAL COORDINATOR: None PROCEDURE PERFORMED: Right medial rectus exploration, [...] The lateral rectus was isolated using a Greg muscle hook and found to be infraplaced [...] 8:56 AM * Pre-Procedure Instructions - Brenda Ryan NP - 11/18/2023 2:27 PM CDT [facility] Location: [facility] The night before your surgery: [...] Planning Perioperative Nursing Note Telephone Preoperative Evaluation ([facility]) - TELEPHONE ONLY, NO PHYSICAL EXAM Date: [...] information Information Provided on Healthcare Directives: No Communication/Exchange Underwriting Consultant Needs Communication Barriers: Visual Communication Needs: Contacts, Glasses Assistive Devices/DME: Eyeglasses, Contacts Hearing - Right Ear: Functional Hearing - Left Ear: Functional Discharge Planning Type of Residence: Private residence Living Arrangements: Spouse/significant other Support Systems: Spouse/significant other Patient expects to be discharged to:: Private residence (, 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 You should leave your valuables and any jewelry at home. No metal or piercings are allowed in the operating room. You should bring your insurance card, a photo ID (example: Knitted Cloth Examiner's License) and a method of payment for [...] Chart. If you are having surgery at [facility], please arrive on the day of [...] Remove nail coverings, artificial nails and nail nicaraguan. Place clean linens on your bed the [...] questions, please call the CPAP Staff at [phone], Friday-Friday 8am-4:30pm. All patients should read the below section: COVID 19 Updates & Visitor Policy: Please access [email or web address] for the most updated information. Information on [facility]: Please view [email or web address] (Patient & Visitor Information) for additional details regarding Advanced Directive forms, AWARE, directions, parking information, lodging, Internet access, dining and more. Information on [facility] or [facility] [place] ([facility]): Please view [email or web address] (Patient and Visitor Information) for parking/directions and more. For MyChart information, to activate account or password recovery, please go to [email or web address] or call [phone] (toll-free: [phone]), Fri- Friday 8am-5pm. Information for Suicide Prevention: National Suicide Prevention Lifeline (2-128- 327-RPAZ (4334)) or call or text 903. Chat resources: [email or web address]. Surgery Times: For patients having surgery @ [facility] or [facility] ([facility]), if your surgeon's office has not notified you of your surgery time by NOON THE BUSINESS DAY BEFORE your surgery, please call [phone] and ask for your surgeon's office Dr. Lama. The [facility] for Preoperative Assessment & Planning (CPAP) does not provide arrival times for the [...] [H50.111] Strabismus Unspecified disorder of eye movements documented in this encounter Admitting Diagnoses Diagnosis Consecutive exotropia of right eye Strabismus Unspecified disorder of eye movements documented in this encounter Administered Medications Inactive Administered Medications - up to 3 most recent administrations Medication Order MAR Action Action Date Dose Rate Site Carrier Fluids for Secondary Infusion - [...] infusion 30 mL/hr, intravenous, Continuous, Starting on Yaanna 11/20/23 at 0745, Pre-Op Rate/Dose Change 11/20/2023 8:25 AM CDT 30 m L/hr Rate/Dose Verify 11/20/2023 8:18 AM CDT 30 mL/h r New Bag 11/20/2023 7:15 AM CDT 30 mL/hr 30 mL/hr sodium chloride 0.9% flush 0.5-20 mL 0.5-20 mL, intra-catheter, As needed, line care, Starting on Ayanna 11/20/23 at 0706, Pre-Op, Flush volume based on line type and size. Flush before and after each use. documented in this encounter Discontinued Medications Medication [...] nebu lizer solution 2.5 mg 1 11/20/2023 BUPivacaine (MARCAINE) 0.75 % (7.5 mg/mL) preservative free injection 1 11/20/2023 Carrier Fluids for Secondary Infusion [...] ondansetron (ZOFRAN) injection 4 mg 1 11/19 povidone-iodine (BETADINE [place] EP) 5 % ophthalmic solution 1 11/20/2023 prochlorperazine (COMPAZINE) injection 5 mg 1 11/20/2023 sodium chloride 0.9% flush 0.5-20 mL 3 11/2023 sterile water irrigation 1 11/20/2023 tetracaine (PF) (ALTACAINE) 0.5 % ophthalmic solution 1 11/20/2023 tobramycin-dexAMETHasone (TO BRADEX) 0.3-0.1 % ophthalmic ointment 1 11/20/2023 documented in this encounter Care Teams Manager Data Warehouse Relationship Specialty Start Date End Date Donnie Sanon MD PCP - General Family Practice 06/23/23 Eun Ballesteros PA [address] [place] [address] Internal Medicine 06/23/23 documented as of this encounter
--- OUTSIDE RECORDS SUMMARY | 2024-08-08 10:09 | XMS_ITS | Encounter Summary ---
Author Organization [facility] Address [address] [place] [address] Phone Care Team Providers Care Stonehand Name Role Phone Donnie Sanon MD Primary Care Provider [phone] Eun Ballesteros Unavailable [phone] Reason for Visit * Reason Onset Date Comments Med Refill 11/18/2023 Encounter Details Date Type Department Care Team (Late st Contact Info) Description 11/18/2023 Telephone [facility] Ophthalmology [address] [place] [address] Cristian aLma III, MD [address] [facility] [address] [place] [address] Med Refill Social History Tobacco Use Types Packs/Day Years Used Date Smoking Tobacco: Former Cigarettes 1 27 1 975 - 2002 Passive Smoke Exposure: Never Smokeless Tobacco: Never [...] on file 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 Lama, this will be given after surgery tomorrow. There is no need for patient to purchase this one, but she does need to warehouse picker the Prednisolone eye drops. Per , he will make sureshe has the Prednisolone and will let her know about the ointment. SBS * Telephone Encounter - Naheed Geiger RMA - 11/18/2023 3:35 PM CDT MEDICATION REFILL Medication(s): tobramycin-dexAMETHasone (TOBRADEX) ophthalmic ointment Preferred Pharmacy: [facility][id number] Pt Callback #: [phone] Additional Comments: documented in this encounter Plan of Treatment Not on file documented as of this encounter Visit Diagnoses Not on filedocumented in this encounter Care Teams Stonehand Relationship Specialty Start Date End Date Donnie Sanon MD PCP - General Family Practice 06/23/23 Eun Ballesteros PA [address] [place] [id number] Internal Medicine 06/23/23 documented as of this encounter
--- OUTSIDE RECORDS SUMMARY | 2024-08-08 10:09 | XMS_ITS | Encounter Summary ---
Author Organization [facility] Address [address] [place] [address] Phone Care Team Providers Care Beauty Operator Apprentice Name Role Phone Donnie Sanon MD Primary Care Provider [phone] Eun Ballesteros Unavailable Encounter Details Date Type Department Care Team (Late st Contact Info) Description 11/05/2023 Telephone [facility] Ophthalmology [address] [facility] 2[address] [place] [address] Marisela Watt Social History Tobacco Use Types [...] on file 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 documented in this encounter Plan of Treatment Not on file documented as of this encounter Visit Diagnoses Not on filedocumented in this encounter Care Teams Beauty Operator Apprentice Relationship Specialty Start Date End Date Donnie Sanon MD PCP - General Family Practice 06/23/23 Eun Ballesteros PA [address] [place] [address] Internal Medicine 06/23/23 documented as of this encounter
--- OUTSIDE RECORDS SUMMARY | 2024-08-08 10:10 | XMS_ITS | Encounter Summary ---
Author Organization [facility] Healthcare Address [address] [place] [address] Care Team Providers Care Scale Assembly Set Up Worker Name Role Phone Unavailable Primary Care Provider Unavailabl e Reason for Visit * Reason Comments Cough Palpitations Encounter Details Date Type Department Care Team (Late st Contact Info) Description 09/13/2017 7:41 AM EXERCISE SCIENTIST - 09/14/2017 11:28 AM EXERCISE SCIENTIST Emergency [facility] IMU [address] [place] [address] Riccardo Bergman, DO [address] [place] [address] Manjula Montilla MD [address] [facility] [address] [place] [address] [place] [id number] Alejandra Gates MD [address] [facility] [address] [place] [address] [place] [id number] Palpitations (Primary Dx) Discharge Disposition: Discharge to home or self care Social History Tobacco Use Types Packs/Day Years Used Date Smoking Tobacco: Former Cigarettes Q uit: 09/13/2001 Smokeless Tobacco: Never Tobacco Cessation:Counseling Given: No Alcohol Use Standard Drinks/Week Comments Yes 1 (1 standard drink = 0.6 oz pur e alcohol) Comments Unknown Sex and Gender Information Value Date Recorded Sex Assigned at Not on file Legal Sex Female 1:34 PM EXERCISE SCIENTIST Gender Identity Not on file Sexual Orientation Not on file documented as of this encounter Last Filed Vital Signs Vital Sign Reading Time Taken Comments Blood Pressure 98/53 09/14/2017 7:58 AM EXERCISE SCIENTIST Pulse 73 09/14/2017 7:58 AM EXERCISE SCIENTIST Temperature 36.4 ??C (97.5 ??F) 09/14/2017 7:58 AM CS T Respiratory Rate 18 09/14/2017 7:58 AM EXERCISE SCIENTIST Oxygen Saturation 94% 09/14/2017 7:58 AM EXERCISE SCIENTIST Inhaled Oxygen Concentration - - Weight 63.3 kg (139 lb 8.8 oz) 09/13/2017 12:40 PM EXERCISE SCIENTIST Height 155.4 cm (5' 1.18 ) 09/13/2017 12:[address] Body Mass Index 26.21 09/13/2017 12:40 PM EXERCISE SCIENTIST documented in this encounter Discharge Summaries * Alejandra Gates MD - 09/14/2017 10:39 AM CST Inpatient Discharge Summary BRIEF OVERVIEW Admitting Provider: Manjula Montilla MD Discharge Provider: Alejandra Gates MD Primary Care Physician at Discharge: No primary care provider on file. None Admission Date: 09/13/2017 Discharge Date: 09/14/2017 Primary Discharge Diagnosis: Palpitation Secondary Discharge Diagnosis: Suspect Subclinical hypothyroidism DETAILS OF HOSPITAL STAY Presenting Problem/History of Present Illness: Patient is a 62-year-old female with past medical history of palpitations, presented to the ER withrecurrent palpitation. For complete details please refer the recent physical by Dr. Delacruz on 09/14/2017 Hospital Course: 1. Recurrent palpitation: Etiology unclear. EKG showed sinus tachycardia. Serial troponin negative.D-dimer negative. Chest x-ray did not show any acute findings. TSH was mildly high with normal freeT4. Patient was asymptomatic after admission. Denies any excessive caffeine use, alcohol or smoking. Due to the history of recurrent palpitation he with resolution with Valsalva maneuver, SVT needs to be rule out. Cardiology consultation was obtained who recommended Toprol XL 25 mg daily, outpatient echocardiogram and CardioNet monitor if the patient has recurrent symptoms. Patient has been counseled extensively to return if she has recurrent symptoms. 2. Suspected subclinical hypothyroidism: Her TSH level was high, and free T4 level was normal. Per patient, her thyroid levels were abnormal few years ago but she never followed up with anyone. Because of her age and being asymptomatic, will repeat her TSH and free T4 in outpatient settings. If shehas persistent elevation of TSH then further workup needs to be done with thyroid peroxidase antibodies and Endocrinology referral. Test Results Pending at Discharge: Order Current Status T3, free In process Blood culture Blood Peripheral Preliminary result Blood culture Blood Peripheral Preliminary result Operative Procedures Performed: Other Procedures: 1. Chest x-ray Pertinent Test Results: Elevated TSH Discharge Details Physical Exam at Discharge: Discharge Condition: good Pulse: 73 Resp: 18 BP: 98/53 Temp: 36.4 ??C (97.5 ??F) Weight: 63.3 kg (139 lb 8.8 oz) BP 98/53 (BP Location: Right arm, Patient Position: Lying) Pulse 73 Temp 36.4 ??C (97.5 ??F) (Tympanic) Resp 18 Ht 155.4 cm (5' 1.18 ) Wt 63.3 kg (139 lb 8.8 oz) SpO2 94% BMI 26.21 kg/m?? Pertinent Exam Findings at Discharge: General appearance: Alert, oriented, in no distress. HEENT: Atraumatic, normocephalic. Pupils equal and reactive to light. Extraocular movements intact.Moist mucous membrane. CVS: S1, S2 normal Respiration: Clear to auscultation bilaterally Abdomen: Soft, nontender, nondistended, bowel sounds normoactive Extremities: No pedal edema, no calf tenderness Neuro: No focal deficits Psychiatric: Normal mood and affect Labs at discharge: Recent Results (from the past 24 hour(s)) Troponin T Collection Time: 09/13/17 6:07 PM Result Value Ref Range Troponin T <0.01 0.00 - 0.06 ng/mL Troponin T Collection Time: 09/13/17 11:58 PM Result Value Ref Range Troponin T <0.01 0.00 - 0.06 ng/mL Troponin T Collection Time: 09/14/17 6:31 AM Result Value Ref Range Troponin T <0.01 0.00 - 0.06 ng/mL Comprehensive metabolic panel Collection Time: 09/14/17 6:31 AM Result Value Ref Range Sodium 142 135 - 145 mmol/L Potassium 4.4 3.3 - 4.9 mmol/L CO2 17 (L) 22 - 32 mmol/L BUN 9 8 - 25 mg/dL Glucose 102 70 - 199 mg/dL Creatinine 0.62 0.60 - 1.10 mg/dL Calcium 8.9 8.5 - 10.3 mg/dL Chloride 105 97 - 110 mmol/L Albumin 3.7 3.5 - 5.0 g/dL AST 16 10 - 45 Units/L ALT 15 7 - 45 Units/L Alk phos 59 40 - 130 Units/L Bilirubin <0.2 0.1 - 1.2 mg/dL Protein, pl 6.8 6.5 - 8.5 g/dL Anion Gap 20 (H) 2 - 15 mmol/L CBC with auto differential Collection Time: 09/14/17 6:31 AM Result Value Ref Range WBC 4.42 3.80 - 9.80 K/cumm RBC 4.08 3.90 - 5.00 M/cumm Hgb 12.0 (L) 12.1 - 15.1 g/dL Hct 35.6 (L) 36.1 - 44.3 % MCV 87.3 80.0 - 100.0 fL MCH 29.4 26.7 - 33.7 pg MCHC 33.7 32.7 - 36.0 g/dL RDW CV 12.9 11.5 - 14.6 % RDW SD 41.5 38.0 - 56.6 fL Platelets 232 140 - 440 K/cumm MPV 8.6 8.0 - 12.0 fL NRBC 0.0 0.0 - 0.0 % NRBC Abs 0.00 0.00 - 0.00 K/cumm TSH reflex to free T4 Collection Time: 09/14/17 6:31 AM Result Value Ref Range TSH 6.96 (H) 0.30 - 5.00 mcIUnit/mL Magnesium Collection Time: 09/14/17 6:31 AM Result Value Ref Range Magnesium 2.3 1.6 - 2.4 mg/dL Differential, auto Collection Time: 09/14/17 6:31 AM Result Value Ref Range Neutrophils 36.5 (L) 44.0 - 80.0 % Immature granulocytes 0.5 0.0 - 1.0 % Lymphocytes 48.9 (H) 13.0 - 44.0 % Monos 11.8 (H) 2.0 - 11.0 % Eosinophils 1.6 0.0 - 6.0 % Basophils 0.7 0.0 - 3.0 % Neutrophil absolute 1.62 1.60 - 7.00 K/cumm Immature granulocyte, abs 0.02 0.00 - 0.20 K/cumm Lymphocytes, abs 2.16 0.50 - 4.30 K/cumm Monos, abs 0.52 0.10 - 1.00 K/cumm Eosinophils, abs 0.07 0.00 - 0.60 K/cumm Basophils, abs 0.03 0.00 - 0.30 K/cumm T4, free Collection Time: 09/14/17 6:31 AM Result Value Ref Range Free T4 1.1 0.8 - 1.8 ng/dL eGFR Collection Time: 09/14/17 6:31 AM Result Value Ref Range GFR >60 mL/min/1.73 m2 Discharge Disposition: discharged to home Full Code Discharge Instructions: Activity Instructions Discharge activity: Resume normal activity Diet Instructions Adult Discharge Diet Diet Type: Return to previous diet Other Instructions Call provider for: 1. For recurrent palpitation 2. For any chest pain or shortness of breath Transthoracic Echo Complete W Doppler/CF Contrast Default Option: Use Perflutren contrast if 2 of 16 LV wall segments in any view not visualized Where should this exam be performed?: [facility] Discharge Medications: Your medication list Toprol XL 25 mg daily added. Outpatient Follow-Up: 1. Follow up with PCP in 1 week (list of primary care physician taking new patients were given to the patient) 2. Follow up with mirror specialist in 1-2 weeks Referrals and Follow-ups to Schedule T4, free Oct 15, 2017 Send results to PCP TSH Oct 15, 2017 Send results to PCP Time Spent on Discharge: 35 mins CISE SCIENTIST documented in this encounter Discharge Instructions * Discharge Instructions* Alejandra Gates MD - 09/14/2017 10:39 AM EXERCISE SCIENTIST 1. Monitor for recurrent palpitation 2. Monitor for any chest pain or shortness of breath 2. Monitor for any lightheadedness or dizziness. CISE SCIENTIST * Appointments* Emma Kearney RN - 09/14/2017 10:50 AM EXERCISE SCIENTIST If you do not have a primary care physician please see attached list and follow up with one as soonas possible. CISE SCIENTIST * Attachments The following attachments cannot be sent through Care Everywhere. * Metoprolol (By mouth) (Bahamian) documented in this encounter Medications at Time of Discharge metoprolol XL (TOPROL-XL) 25 mg 24 hr tablet Take 1 tablet (25 mg total) by mouth nightly. 30 tablet 09/14/2017 11/05/2023 documented as of this encounter Ordered Prescriptions Prescription Sig Dispense Quantity Refills Last Filled Start Date End Date metoprolol XL (TOPROL-XL) 25 mg 24 hr tablet Take 1 tablet (25 mg total) by mouth nightly. 30 tablet 09/14/2017 11/05/2023 documented in this encounter Discharge Disposition Disposition Code Departure Means Destination Discharge to home or self care documented in this encounter H&P Notes * Sia Delacruz MD - 09/14/2017 12:21 AM CST General Medicine History and Physical Date of Encounter 0 09/13/2017 SUBJECTIVE Patient is a 62 y.o. female with a PMH of palpitations with a chief complaint of palpitations. HPI: Per patient she states she has a history of palpitations for a long time. She states there is no triggering factors however when she has palpitations she holds her breath and they resolve. She has palpitations intermittently. She usually feels hot and sweaty prior to the palpitation. There is lightheadedness associated with them. She has never seen a doctor for this. She has not seen a doctor in many years. Patient states she has had a cold for the past 1 and half weeks. She has been tired and weak with a dry cough. She has been taking [id number] Mucinex. She states on the day of presentation she had 2 episodes of palpitations. She states due to her cough she was unable to hold her breath and each episode lasted approximately 15-20 minutes. She states that these episodes on the day of presentation were associated with tingling in her fingertips which was new and she has never had this before. She states she has had 4 episodes of palpitations in the past week and a half since shehas had her cough. This is unusual as she usually has them less than once a month. Patient was concerned and came to the ED for further evaluation. Patient was admitted for further workup. Currently patient has no palpitations. She states her most recent episode resolved prior to coming to the ED. She denies any associated chest pain or shortness of breath. History reviewed. No pertinent past medical history. Past Surgical History: Procedure Laterality Date ??? EYE SURGERY as a child No prescriptions prior to admission. No Known Allergies Social History Substance Use Topics ??? Smoking status: Former Smoker Packs/day: 1.00 Quit date: 09/13/2001 ??? Smokeless tobacco: Never Used ??? Alcohol use 0.6 - 1.2 oz/week 1 - 2 Cans of beer per week Family History Problem Relation Age of Onset ??? Cancer Mother ??? Heart disease Mother ??? COPD Mother ??? COPD Father ??? Cancer Brother ??? Crohn's disease Daughter ??? No Known Problems Son ??? No Known Problems Mother's Sister ??? No Known Problems Mother's Brother ??? No Known Problems Father's Sister ??? No Known Problems Father's Brother ??? No Known Problems Maternal Grandmother ??? No Known Problems Maternal Grandfather ??? No Known Problems Paternal Grandmother ??? No Known Problems Paternal Grandfather Review of Systems Please see pertinent positives in HPI. Otherwise patient states her appetite energy have been low for the past week and half. Review of systems is otherwise negative. OBJECTIVE Vitals: Arrival Vitals Temp 09/13/17 0745 36.9 ??C (98.5 ??F) Pulse 09/13/17 0745 112 Resp 09/13/17 0745 20 BP 09/13/17 0745 112/73 SpO2 09/13/17 0745 93 % Temp src 09/13/17 0745 Temporal Heart Rate Source 09/13/17 1240 Monitor Patient Position 09/13/17 1240 Sitting BP Location 09/13/17 1240 Right arm FiO2 (%) -- 24hr Min/Max: Temp Min: 36.1 ??C (96.9 ??F) Max: 36.9 ??C (98.5 ??F) Pulse Min: 73 Max: 112 BP Min: 97/69 Max: 113/66 Resp Min: 8 Max: 20 SpO2 Min: 93 % Max: 100 % Most Recent : Vitals: 09/13/17 2300 BP: 100/60 Pulse: 85 Resp: 18 Temp: 36.1 ??C (96.9 ??F) SpO2: 100% No intake/output data recorded. PHYSICAL EXAM GENERAL: No acute distress, A&O x4 HEENT: No conjunctival pallor, mucous membranes moist NEURO: PERRL, EOMI, dysconjugate gaze, moves all extremities CVS: S1-S2, regular rate and rhythm LUNGS: Clear to auscultation bilaterally ABDOMEN: Positive bowel sounds, soft, nontender EXT: No lower extremity edema or tenderness to palpation SKIN: Warm, dry Lab/Radiology/Diagnostic Review: Recent Results (from the past 24 hour(s)) CBC with auto differential Collection Time: 09/13/17 8:27 AM Result Value Ref Range WBC 6.64 3.80 - 9.80 K/cumm RBC 4.57 3.90 - 5.00 M/cumm Hgb 13.6 12.1 - 15.1 g/dL Hct 40.3 36.1 - 44.3 % MCV 88.2 80.0 - 100.0 fL MCH 29.8 26.7 - 33.7 pg MCHC 33.7 32.7 - 36.0 g/dL RDW CV 13.1 11.5 - 14.6 % RDW SD 42.3 38.0 - 56.6 fL Platelets 266 140 - 440 K/cumm MPV 8.8 8.0 - 12.0 fL NRBC 0.0 0.0 - 0.0 % NRBC Abs 0.00 0.00 - 0.00 K/cumm Pro B-type natriuretic peptide Collection Time: 09/13/17 8:27 AM Result Value Ref Range Pro BNP 104 10 - 150 pg/mL Comprehensive metabolic panel Collection Time: 09/13/17 8:27 AM Result Value Ref Range Sodium 137 135 - 145 mmol/L Potassium 3.8 3.3 - 4.9 mmol/L CO2 26 22 - 32 mmol/L BUN 10 8 - 25 mg/dL Glucose 107 70 - 199 mg/dL Creatinine 0.68 0.60 - 1.10 mg/dL Calcium 9.1 8.5 - 10.3 mg/dL Chloride 98 97 - 110 mmol/L Albumin 4.2 3.5 - 5.0 g/dL AST 17 10 - 45 Units/L ALT 14 7 - 45 Units/L Alk phos 69 40 - 130 Units/L Bilirubin 0.2 0.1 - 1.2 mg/dL Protein, pl 7.6 6.5 - 8.5 g/dL Anion Gap 13 2 - 15 mmol/L D-dimer, quantitative Collection Time: 09/13/17 8:27 AM Result Value Ref Range D-dimer <150 (L) 150 - 230 ng/mL D-DU Troponin T Collection Time: 09/13/17 8:27 AM Result Value Ref Range Troponin T <0.01 0.00 - 0.06 ng/mL aPTT Collection Time: 09/13/17 8:27 AM Result Value Ref Range APTT 29.7 25.0 - 37.0 sec Protime-INR Collection Time: 09/13/17 8:27 AM Result Value Ref Range PT 11.4 9.5 - 13.0 sec INR 1.01 0.90 - 1.20 Differential, auto Collection Time: 09/13/17 8:27 AM Result Value Ref Range Neutrophils 64.9 44.0 - 80.0 % Immature granulocytes 0.3 0.0 - 1.0 % Lymphocytes 23.8 13.0 - 44.0 % Monos 10.5 2.0 - 11.0 % Eosinophils 0.2 0.0 - 6.0 % Basophils 0.3 0.0 - 3.0 % Neutrophil absolute 4.31 1.60 - 7.00 K/cumm Immature granulocyte, abs 0.02 0.00 - 0.20 K/cumm Lymphocytes, abs 1.58 0.50 - 4.30 K/cumm Monos, abs 0.70 0.10 - 1.00 K/cumm Eosinophils, abs 0.01 0.00 - 0.60 K/cumm Basophils, abs 0.02 0.00 - 0.30 K/cumm eGFR Collection Time: 09/13/17 8:27 AM Result Value Ref Range GFR >60 mL/min/1.73 m2 Lactate, whole blood Collection Time: 09/13/17 8:30 AM Result Value Ref Range Lactic acid, bld 0.6 0.5 - 2.2 mmol/L Influenza A/B antigens, rapid Collection Time: 09/13/17 8:30 AM Result Value Ref Range Flu A Negative Negative Flu B Negative Negative Troponin T Collection Time: 09/13/17 6:07 PM Result Value Ref Range Troponin T <0.01 0.00 - 0.06 ng/mL Xr Chest 1 Vw Portable Result Date: 09/13/2017 Narrative: XR CHEST 1 VIEW HISTORY: Dyspnea. TECHNIQUE: Portable AP view. COMPARISON: 05/21/2009. FINDINGS: Patient is somewhat rotated. No infiltrate or effusion identified. Heart size is normal. Minimal pleural thickening/pleural parenchymal scarring in the apical regions. Minimal atelectasis/scarring right lung base. Impression: MINIMAL RIGHT BASILAR ATELECTASIS/SCARRING. Electronically signed by: Harley Bynum M.D ASSESSMENT/PLAN 1. Palpitations, appears to be paroxysmal SVT. Patient has had these episodes for years. She has never had any evaluation completed. Will check TSH and ensure electrolytes are okay. Continue tele. Will also consult Cardiology to see if any further evaluation is needed. These episodes appeared to resolve with Valsalva. 2. Cough. Patient states there is no sputum production. Mucinex has been tried OTC but has not helped. Patient was offered a course of Zithromax for possible bronchitis but patient would like to holdoff on antibiotics if it is not needed. 3. Diet. Regular. 4. DVT prophylaxis. Lovenox. 5. Estimated length of stay less than 2 midnights. CISE SCIENTIST documented in this encounter Consult Notes * Venessa Tse NP - 09/14/2017 10:07 AM CSTAssociated Order(s): IP CONSULT TO CARDIOLOGY Cardiology Consultation note Admit date: 09/13/2017 Reason for Consultation: Palpitations History of Present Illness: Maria E Key is a pleasant 62 y.o. female who presented to the ED with ongoing palpitations. She states she has them about every month to month in a half. Usually she is able to take a few deep breaths and it calms down. This time it happened in the middle of the night and woke her up. She states she could not get them to go away so she came to the ED for further evaluation. By the time she arrived the sensation was gone but she was subsequently admitted for observation. No arrhythmias noted on the monitor and patient denies any further episodes since being admitted. Troponin negative x3 and TSH slightly elevated at 6.96. Patient denies any precipitating factors, drinks 2 cups of coffeein the am, no tobacco, very limited amounts of ETOH. History reviewed. No pertinent past medical history. Past Surgical History: Procedure Laterality Date ??? EYE SURGERY as a child Family History Problem Relation Age of Onset ??? Cancer Mother ??? Heart disease Mother ??? COPD Mother ??? COPD Father ??? Cancer Brother ??? Crohn's disease Daughter ??? No Known Problems Son ??? No Known Problems Mother's Sister ??? No Known Problems Mother's Brother ??? No Known Problems Father's Sister ??? No Known Problems Father's Brother ??? No Known Problems Maternal Grandmother ??? No Known Problems Maternal Grandfather ??? No Known Problems Paternal Grandmother ??? No Known Problems Paternal Grandfather Social History Social History ??? Marital status: Spouse name: N/A ??? Number of children: N/A ??? Years of education: N/A Social History Main Topics ??? Smoking status: Former Smoker Packs/day: 1.00 Quit date: 09/13/2001 ??? Smokeless tobacco: Never Used ??? Alcohol use 0.6 - 1.2 oz/week 1 - 2 Cans of beer per week ??? Drug use: No ??? Sexual activity: Defer Other Topics Concern ??? None Social History Narrative ??? None Review of systems: Constitutional: Negative for fever, chills, malaise/fatigue, and diaphoresis. Psychiatric: Negative for depression and anxiety. Skin: Negative for rash and itching. HENT: Negative for headaches, lightheadedness, and congestion. Negative for vertigo. Eyes: Negative for blurred vision and itching. Cardiovascular: Negative for chest pain, positive for palpitations negative for syncope. Respiratory: Negative for cough and sputum production. Negative for shortness of breath. Gastrointestinal: Negative for nausea, vomiting, abdominal pain and diarrhea. Musculoskeletal: Negative for muscle weakness, extremity redness or swelling. Neurological: Negative for dizziness, focal weakness, tremors, and loss of consciousness. Vital Signs: Arrival Vitals Temp 09/13/17 0745 36.9 ??C (98.5 ??F) Pulse 09/13/17 0745 112 Resp 09/13/17 0745 20 BP 09/13/17 0745 112/73 SpO2 09/13/17 0745 93 % Temp src 09/13/17 0745 Temporal Heart Rate Source 09/13/17 1240 Monitor Patient Position 09/13/17 1240 Sitting BP Location 09/13/17 1240 Right arm FiO2 (%) -- Vitals: 09/14/17 0302 09/14/17 0400 09/14/17 0600 09/14/17 0758 BP: 104/64 98/53 BP Location: Left arm Right arm Patient Position: Lying Lying Pulse: 77 64 65 73 Resp: 18 Temp: 36.3 ??C (97.4 ??F) 36.4 ??C (97.5 ??F) TempSrc: Temporal Tympanic SpO2: 96% 94% Weight: Height: Intake/Output Summary (Last 24 hours) at 09/14/17 1007 Last data filed at 09/14/17 0515 Gross per 24 hour Intake 1110 ml Output 0 ml Net 1110 ml Wt Readings from Last 3 Encounters: 09/13/17 63.3 kg (139 lb 8.8 oz) Physical Exam: General: Well developed, well nourished, in no acute distress, oriented to person, place, and time. Skin: Warm and dry Head: Normocephalic, oral mucosa and conjunctivae normal Neck: No thyromegaly or bruits. Carotid pulses 2+ Lungs: Clear to auscultation and percussion. Respirations unlabored Cardiac: PMI and JVP normal, S1 and S2 normal, no murmur, no gallop or rub Abd: Soft, nontender, BS active, no hepatosplenomegaly or masses, no abdominal bruit or enlarged aortic pulsation Extremities: No clubbing, cyanosis. No edema. Femoral pulses 2+. Pedal pulses 2+ Musculoskeletal: Muscle strength normal. No scoliosis. Neurologic: Oriented to person, place, and time. Mood not depressed. No Known Allergies Home Medications: Prior to Admission medications Not on File Labs: Recent Labs Lab Units 09/14/17 0631 09/13/17 2358 09/13/17 1807 TROPONIN T ng/mL <0.01 <0.01 <0.01 Recent Labs Lab Units 09/14/17 0631 09/13/17 0827 SODIUM mmol/L 142 137 POTASSIUM PLASMA mmol/L 4.4 3.8 CHLORIDE mmol/L 105 98 CO2 mmol/L 17* 26 BUN SERUM mg/dL 9 10 CREATININE mg/dL 0.62 0.68 [id number] mL/min/1.73 m2 >60 >60 GLUCOSE mg/dL 102 107 CALCIUM mg/dL 8.9 9.1 ALBUMIN g/dL 3.7 4.2 Recent Labs Lab Units 09/14/17 0631 09/13/17 0827 ALK PHOS Units/L 59 69 BILIRUBIN TOTAL mg/dL <0.2 0.2 TOTAL PROTEIN g/dL 6.8 7.6 ALT Units/L 15 14 AST Units/L 16 17 Recent Labs Lab Units 09/14/17 0631 09/13/17 0827 WHITE BLOOD CELLS K/cumm 4.42 6.64 HEMOGLOBIN g/dL 12.0* 13.6 HEMATOCRIT % 35.6* 40.3 PLATELET COUNT K/cumm 232 266 Recent Labs Lab Units 09/13/17 0827 INR 1.01 No results found for: CHOL, TRIG, HDL, LDL Lab Results Component Value Date TSH 6.96 (H) 09/14/2017 FREET4 1.1 09/14/2017 No results found for: BNP Testing: Cardiac Rhythm: Normal sinus rhythm (09/14/17 0600) Xr Chest 1 Vw Portable Result Date: 09/13/2017 MINIMAL RIGHT BASILAR ATELECTASIS/SCARRING. Electronically signed by: Harley Bynum M.D No results found for this or any previous visit.] Impression: 1. Palpitations, unsure of etiology. Frequency varies 2. Slightly elevated TSH 3. Eye surgery as child Plan: 1. Will have office call patient for outpatient echocardiogram to evaluate for valvular issues or cardiomyopathies 2. Add Toprol XL 25mg at bedtime for symptom control 3. Patient was instructed to call the office if recurrence of palpitations, at that time a 21 day cardionet will be placed. Office is aware of all orders including possible need for cardionet and will call patient for follow up 4. Pt ok for discharge at this time Thank you for allowing us to participate in the care of your patient. Venessa Tse, MSN, [facility] Instructional Supervisor [phone] CISE SCIENTIST CISE SCIENTIST documented in this encounter Nursing Notes * Erika Grey RN - 09/14/2017 11:28 AM CST 09/14/2017 1128 Discharge instructions and prescriptions given to patient, verbalizes understanding. Discharged to home per wheelchair in stable condition, accompanied by staff and . CISE SCIENTIST documented in this encounter ED Notes * Johana Casillas RN - 09/13/2017 9:47 AM CST Patient presents with complaints of cough, chest pain and palpitations that started 1.5 weeks ago CISE SCIENTIST * Riccardo Bergman DO - 09/13/2017 8:18 AM CSTAssociated Order(s): ECG 12-LEAD HPI Chief Complaint Patient presents with ??? Cough ??? Palpitations Riccardo Bergman DO 8:13 AM: Patient is a 62 year old female who presents to the ED complaining of intermittent palpitations that began this morning, when they resolved temporarily and then returned. She also complains of a cough, subjective fever, and diaphoresis. She took Mucinex at home with no relief of her symptoms. There are no other symptoms at this time. 8:23 AM: Stacey Geiger, scribing for and in the presence of Dr. Riccardo Bergman. I electronically signed this note at 8:23 AM on 09/13/2017. I, Riccardo Bergman, have personally performed the services described in the documentation , reviewedthe documentation, as recorded by the scribe in my presence, and it accurately and completely records my words and actions. Patient History History reviewed. No pertinent past medical history. History reviewed. No pertinent surgical history. History reviewed. No pertinent family history. Social History Substance Use Topics ??? Smoking status: Never Smoker ??? Smokeless tobacco: Never Used ??? Alcohol use Not on file Review of Systems Review of Systems Constitutional: Positive for diaphoresis and fever (Subjective). Negative for chills. Respiratory: Positive for cough. Negative for shortness of breath. Cardiovascular: Positive for palpitations. Negative for chest pain. Gastrointestinal: Negative for abdominal pain and vomiting. Genitourinary: Negative for dysuria and hematuria. Musculoskeletal: Negative for arthralgias and back pain. Skin: Negative for color change and rash. Neurological: Negative for seizures, syncope, weakness and headaches. All other systems reviewed and are negative. Physical Exam ED Triage Vitals [09/13/17 0745] Temp Pulse Resp BP SpO2 36.9 ??C (98.5 ??F) 112 20 112/73 93 % Temp src Heart Rate Source Patient Position BP Location FiO2 (%) Temporal -- -- -- -- Physical Exam Constitutional: She is oriented to person, place, and time. She appears well- developed and well-nourished. No distress. HENT: Head: Normocephalic and atraumatic. Eyes: Conjunctivae are normal. Neck: Neck supple. Cardiovascular: Normal heart sounds. An irregular rhythm present. Tachycardia present. Exam revealsno gallop and no friction rub. No murmur heard. Pulmonary/Chest: Effort normal and breath sounds normal. No respiratory distress. She has no wheezes. She has no rales. Abdominal: Soft. She exhibits no mass. There is no tenderness. No hernia. Musculoskeletal: She exhibits no edema, tenderness or deformity. Neurological: She is alert and oriented to person, place, and time. Skin: Skin is warm and dry. No rash noted. No erythema. No pallor. Nursing note and vitals reviewed. ED Course & MDM ED Course as of Sep 13 1202 Sat Sep 13, 2017 1150 Discussed patient's case with Dr. Montilla, hospitalist, who accepts the patient for admission. [LB] 1112 Rechecked patient. Discussed all results from the ED course and plan for admission. Patient understands and agrees to the plan. All questions addressed. [LB] ED Course User Index [LB] Stacey Geiger ECG 12 lead Date/Time: 09/13/2017 8:37 AM Performed by: RICCARDO BERGMAN Authorized by: RICCARDO BERGMAN Comments: Sinus tachycardia; Rate of 107; interventricular conduction delay; no previous EKG for comparison. MDM BP 112/73 Pulse 112 Temp 36.9 ??C (98.5 ??F) (Temporal) Resp 20 Ht 154.9 cm (5' 1 ) Wt 61.2 kg (135 lb) SpO2 93% BMI 25.51 kg/m?? Labs Reviewed CBC WITH AUTO DIFFERENTIAL PRO B-TYPE NATRIURETIC PEPTIDE COMPREHENSIVE METABOLIC PANEL D-DIMER, QUANTITATIVE LACTATE, WHOLE BLOOD TROPONIN T APTT PROTIME-INR XR Chest 1 Vw Portable (Results Pending) No diagnosis found. Riccardo Bergman DO 09/13/17 1202 CISE SCIENTIST * Flaquita Steele, COLETTE - 09/13/2017 7:45 AM CST Pt complains of being sick and coughing for 1-2 weeks and now is feeling her heart race. CISE SCIENTIST documented in this encounter Miscellaneous Notes * Plan of Care - Thea Lynn RN - 09/14/2017 5:12 AM CST Goals: Clinical Goals for the Shift: VSS, no SOB, no chest pain, continue to monitor SR End of Shift Summary: VS remain stable, no SOB noted or voiced, offered no C/O pain or discomfort, conts to monitor SR CISE SCIENTIST * Plan of Care - Sylvie Cortes RN - 09/13/2017 1:15 PM CST Problem: Activity: Goal: Risk for activity intolerance will decrease Outcome: Progressing Problem: Lack of Knowledge: Goal: Knowledge of disease or condition will improve Outcome: Progressing Comments: Goals: Clinical Goals for the Shift: pt will have no episodes of heart palpitations and no SOB, pt will remain free of injury End of Shift Summary: pt admitted via ER from home with . Pt has had congestion and cough for past 1-2 weeks, pt continues to have congested cough, lungs are diminished in bases but otherwise clear. Pt is alert and oriented x4. Pt has no medical history and takes no medications. Up ad adonis, independent. CISE SCIENTIST documented in this encounter Plan of Treatment Not on file documented as of this encounter Procedures Procedure Name Priority Date/Time Associated Diagnosis Comments EGFR Routine 09/14/2017 6:31 AM EXERCISE SCIENTIST DIFFERENTIAL AUTO Routine 09/14/2017 6:3 1 AM EXERCISE SCIENTIST THYROID FUNCTION CASCADE Routine 09/14/2017 6:31 AM EXERCISE SCIENTIST CBC WITH AUTO DIFFERENTIAL Routine 09/14/2017 6:31 AM EXERCISE SCIENTIST TROPONIN T Timed 09/14/2017 6:31 AM EXERCISE SCIENTIST T3, FREE Routine 09/14/2017 6:31 AM EXERCISE SCIENTIST T4, FREE Routine 09/14/2017 6:31 AM EXERCISE SCIENTIST MAGNESIUM Routine 09/14/2017 6:31 AM EXERCISE SCIENTIST COMPREHENSIVE METABOLIC PANEL Routine 09/14/2017 6:31 AM EXERCISE SCIENTIST DISCHARGE LABORATORY CUMULATIVE REPORT 09/14/2017 12:00 AM EXERCISE SCIENTIST TROPONIN T Timed 09/13/2017 11:58 PM EXERCISE SCIENTIST TROPONIN T Timed 09/13/2017 6:07 PM EXERCISE SCIENTIST XR CHEST 1 VIEW ED 09/13/2017 8:58 AM EXERCISE SCIENTIST INFLUENZA A/B ANTIGENS, RAPID GEN LAB STAT 09/13/2017 8:30 AM EXERCISE SCIENTIST LACTATE, WHOLE BLOOD STAT 09/13/2017 8:30 AM EXERCISE SCIENTIST BLOOD CULTURE STAT 09/13/2017 8:30 AM EXERCISE SCIENTIST BLOOD CULTURE STAT 09/13/2017 8:30 AM EXERCISE SCIENTIST EGFR STAT 09/13/2017 8:27 AM EXERCISE SCIENTIST DIFFERENTIAL AUTO STAT 09/13/2017 8:2 7 AM EXERCISE SCIENTIST PRO B-TYPE NATRIURETIC PEPTIDE STAT 09/13/2017 8:27 AM EXERCISE SCIENTIST CBC WITH AUTO DIFFERENTIAL STAT 09/13/2017 8:27 AM EXERCISE SCIENTIST APTT STAT 09/13/2017 8:27 AM EXERCISE SCIENTIST PROTIME-INR STAT 09/13/2017 8:27 AM EXERCISE SCIENTIST D-DIMER, QUANTITATIVE STAT 09/13/2017 8:27 AM EXERCISE SCIENTIST TROPONIN T STAT 09/13/2017 8:27 AM EXERCISE SCIENTIST COMPREHENSIVE METABOLIC PANEL STAT 09/13/2017 8:27 AM EXERCISE SCIENTIST ECG 12-LEAD STAT 09/13/2017 8:18 AM EXERCISE SCIENTIST documented in this encounter Results * T3, free (09/14/2017 6:31 AM EXERCISE SCIENTIST) Free T3 3.10 2.50 - 3.90 pg/mL [facility] ([place]) Comment:Testing performed by : [facility], [address] [place] [address], [place]., [address] Blood specimen (specimen) 09/14/2017 6:31 AM EXERCISE SCIENTIST 09/15/2017 11:35 AM EXERCISE SCIENTIST Narrative [facility] ([place]) - 09/15/2017 12:11 PM EXERCISE SCIENTIST us Alejandra Gates MD LAB BLOOD ORDERABLES Final Resul t [facility] ([place]) 1 [facility] Department [place] [address] * eGFR (09/14/2017 6:31 AM EXERCISE SCIENTIST) [facility] eGFR >60 mL/min/1.7 3 m2 [facility] ([place]) Comment: Interpretive Data Reference Interval Normal ?>/= 90 mL/min/1.73m2 Mildly decreased* ? 60 - 89 mL/min/1.73m2 Mildly to moderately decreased ?45 - 59 mL/min/1.73m2 Moderately to severely decreased ??30 - 44 mL/min/1.73m2 Severely decreased ?15 - 29 mL/min/1.73m2 Kidney Failure ?< 15 ??mL/min/1.73m2 *Relative to young adult level If -British multiply value by 1.16. Estimated glomerular filtration rate is determined by the CKD-EPI equation recommended by the National Kidney Foundation (KDIGO 2012 Clinical Practice Guideline for the Evaluation and Management of Chronic Kidney Disease. Kidney Intnl Suppl Aug 2012;3:1). The CKD-EPI equation should not be used for patients with unstable renal function and has not been validated in children and those over 70. Current interpretive data was last reviewed 2016. Blood specimen (specimen) 09/14/2017 6:31 AM EXERCISE SCIENTIST 09/14/2017 6:46 AM EXERCISE SCIENTIST Narrative [facility] ([place]) - 09/14/2017 7:44 AM EXERCISE SCIENTIST us Sia Delacruz MD LAB BLOOD ORDERABLES Final Resul t [facility] ([place]) 1 [facility] Department [place] [address] * T4, free (09/14/2017 6:31 AM EXERCISE SCIENTIST) [facility] Free T4 1.1 0.8 - 1.8 ng/dL [facility] ([place]) Blood specimen (specimen) 09/14/2017 6:31 AM EXERCISE SCIENTIST 09/14/2017 6:46 AM EXERCISE SCIENTIST Narrative [facility] ([place]) - 09/14/2017 8:13 AM EXERCISE SCIENTIST This test was reflexed from a TSH ([place]) result. us Sia Delacruz MD LAB BLOOD ORDERABLES Final Resul t [facility] ([place]) 1 [facility] Department [place] [address] * (ABNORMAL) Differential, auto (09/14/2017 6:31 AM EXERCISE SCIENTIST) Neutrophil pct 36.5(L) 44.0 - 80.0 % [facility] ([place]) Imm gran pct 0.5 0.0 - 1.0 % [facility] ([place]) Lymphocyte pct 48.9(H) 13.0 - 44.0 % [facility] ([place]) Monocyte pct 11.8(H) 2.0 - 11.0 % [facility] ([place]) Eosinophil pct 1.6 0.0 - 6.0 % [facility] ([place]) Basophil pct 0.7 0.0 - 3.0 % [facility] ([place]) Neutrophil abs 1.62 1.60 - 7.00 K/cumm [facility] ([place]) Imm gran abs 0.02 0.00 - 0.20 K/cumm [facility] ([place]) Lymphocyte abs 2.16 0.50 - 4.30 K/cumm [facility] ([place]) Monocyte abs 0.52 0.10 - 1.00 K/cumm [facility] ([place]) Eosinophil abs 0.07 0.00 - 0.60 K/cumm [facility] ([place]) Basophil abs 0.03 0.00 - 0.30 K/cumm [facility] ([place]) Blood specimen (specimen) 09/14/2017 6:31 AM EXERCISE SCIENTIST 09/14/2017 6:46 AM EXERCISE SCIENTIST Narrative [facility] ([place]) - 09/14/2017 6:49 AM EXERCISE SCIENTIST us Sia Delacruz MD LAB BLOOD ORDERABLES Final Resul t [facility] ([place]) 1 [facility] [place] [address] * Magnesium (09/14/2017 6:31 AM EXERCISE SCIENTIST) Magnesium 2.3 1.6 - 2.4 mg/dL [facility] ([place]) Blood specimen (specimen) 09/14/2017 6:31 AM EXERCISE SCIENTIST 09/14/2017 6:46 AM EXERCISE SCIENTIST Narrative [facility] ([place]) - 09/14/2017 7:44 AM EXERCISE SCIENTIST us Sia Delacruz MD LAB BLOOD ORDERABLES Final Resul t Performing Organization Address [facility] Co de Phone Number [facility] ([place]) 1 [facility] [place] [address] * (ABNORMAL) TSH reflex to free T4 (09/14/2017 6:31 AM EXERCISE SCIENTIST) Pathologist [facility] TSH 6.96(H) 0.30 - 5.00 mcIUnit/mL [facility] ([place]) Blood specimen (specimen) 09/14/2017 6:31 AM EXERCISE SCIENTIST 09/14/2017 6:46 AM EXERCISE SCIENTIST Narrative [facility] ([place]) - 09/14/2017 7:44 AM EXERCISE SCIENTIST us Sia Delacruz MD LAB BLOOD ORDERABLES Final Resul t Performing Organization Address City/[facility]/ZIP Co de Phone Number [facility] ([place]) 1 [facility] [place] [address] * (ABNORMAL) CBC with auto differential (09/14/2017 6:31 AM EXERCISE SCIENTIST) WBC 4.42 3.80 - 9.80 K/cumm [facility] ([place]) RBC 4.08 3.90 - 5.00 M/cumm [facility] ([place]) Hgb 12.0(L) 12.1 - 15.1 g/dL [facility] ([place]) Hct 35.6(L) 36.1 - 44.3 % [facility] ([place]) MCV 87.3 80.0 - 100.0 fL [facility] ([place]) MCH 29.4 26.7 - 33.7 pg [facility] ([place]) MCHC 33.7 32.7 - 36.0 g/dL [facility] ([place]) RDW CV 12.9 11.5 - 14.6 % [facility] ([place]) RDW SD 41.5 38.0 - 56.6 fL [facility] ([place]) Plt 232 140 - 440 K/cumm [facility] ([place]) MPV 8.6 8.0 - 12.0 fL [facility] ([place]) NRBC 0.0 0.0 - 0.0 % [facility] ([place]) NRBC abs 0.00 0.00 - 0.00 K/cumm [facility] ([place]) Blood specimen (specimen) 09/14/2017 6:31 AM EXERCISE SCIENTIST 09/14/2017 6:46 AM EXERCISE SCIENTIST Narrative [facility] ([place]) - 09/14/2017 6:49 AM EXERCISE SCIENTIST us Sia Delacruz MD LAB BLOOD ORDERABLES Final Resul t [facility] ([place] 1 [facility] Department [place] [address] * (ABNORMAL) Comprehensive metabolic panel (09/14/2017 6:31 AM EXERCISE SCIENTIST) Sodium 142 135 - 145 mmol/L [facility] ([place]) Potassium, pl 4.4 3.3 - 4.9 mmol/L [facility] ([place]) CO2 17(L) 22 - 32 mmol/L [facility] ([place]) Comment:Result may be falsel y decreased. Called correction to Leyda French RN ([facility]) 09/16/2017 12:57:18 EXERCISE SCIENTIST BUN 9 8 - 25 mg/dL [facility] ([place]) Glucose 102 70 - 199 mg/dL [facility] ([place]) Comment: Interpretive Data Fasting glucose >/= 126 mg/dl is diagnostic for diabetes. ?? Fasting is defined as no caloric intake for at least 8 hours. Fasting glucose between 100 mg/dl to 125 mg/dl is diagnostic of prediabetes. In a patient with classic symptoms of hyperglycemia or hyperglycemic crisis, a random glucose >/= 200 mg/dl is diagnostic for diabetes. In the absence of unequivocal hyperglycemia, results should be confirmed by repeat testing. The classification and Diagnosis of Diabetes Diabetes Care 2017;40 (Suppl. 1):S11. Current interpretive data was last revised 2017. Creatinine 0.62 0.60 - 1.10 mg/dL [facility] ([place]) Calcium 8.9 8.5 - 10.3 mg/dL [facility] ([place]) Chloride 105 97 - 110 mmol/L [facility] ([place]) Albumin 3.7 3.5 - 5.0 g/dL [facility] ([place]) AST 16 10 - 45 Units/L [facility] ([place]) ALT 15 7 - 45 Units/L [facility] ([place]) Alk phos 59 40 - 130 Units/L [facility] ([place]) Bilirubin, total <0.2 0.1 - 1.2 mg/dL [facility] ([place]) Protein, pl 6.8 6.5 - 8.5 g/dL [facility] ([place]) Anion gap 20(H) 2 - 15 mmol/L [facility] ([place]) Blood specimen (specimen) 09/14/2017 6:31 AM EXERCISE SCIENTIST 09/14/2017 6:46 AM EXERCISE SCIENTIST Narrative [facility] ([place]) - 09/16/2017 1:06 PM EXERCISE SCIENTIST us Sia Delacruz MD LAB BLOOD ORDERABLES Edited Resu lt - Final [facility] ([place]) 1 [facility] Department [place] [address] * Troponin T (09/14/2017 6:31 AM EXERCISE SCIENTIST) Troponin T <0.01 0.00 - 0.06 ng/mL [facility] ([place]) Comment: Interpretive Data Troponin table: ? Negative ? 0.00-0.06 ng/ml ? Indeterminate ?0.07-0.10 ng/ml ? Consistent with Myocardial Injury ?Greater than 0.10 ng/ml ?? Current interpretive data was last revised on 2014 Blood specimen (specimen) 09/14/2017 6:31 AM EXERCISE SCIENTIST 09/14/2017 6:47 AM EXERCISE SCIENTIST Narrative [facility] ([place]) - 09/14/2017 7:35 AM EXERCISE SCIENTIST us Sia Delacruz MD LAB BLOOD ORDERABLES Final Resul t [facility] ([place]) 1 [facility] Department [place] [address] * DISCHARGE LABORATORY CUMULATIVE REPORT (09/14/2017 12:00 AM EXERCISE SCIENTIST) Narrative 09/14/2017 12:00 AM EXERCISE SCIENTIST Ordered by an unspecified provider. Historical Provider LAB BLOOD ORDERABLES Agatha l Result * Troponin T (09/13/2017 11:58 PM EXERCISE SCIENTIST) Troponin T <0.01 0.00 - 0.06 ng/mL [facility] ([place]) Comment: Interpretive Data Troponin table: ? Negative ? 0.00-0.06 ng/ml ? Indeterminate ?0.07-0.10 ng/ml ? Consistent with Myocardial Injury ?Greater than 0.10 ng/ml ?? Current interpretive data was last revised on 2014 Blood specimen (specimen) 09/13/2017 11:58 PM EXERCISE SCIENTIST 09/14/2017 12:06 AM EXERCISE SCIENTIST Narrative [facility] ([place]) - 09/14/2017 12:41 AM EXERCISE SCIENTIST us Sia Delacruz MD LAB BLOOD ORDERABLES Final Resul t Performing Organization Address City/[facility] Co de Phone Number [facility] ([place]) 1 [facility] [place] [address] * Troponin T (09/13/2017 6:07 PM EXERCISE SCIENTIST) Troponin T <0.01 0.00 - 0.06 ng/mL [facility] ([place]) Comment: Interpretive Data Troponin table: ? Negative ? 0.00-0.06 ng/ml ? Indeterminate ?0.07-0.10 ng/ml ? Consistent with Myocardial Injury ?Greater than 0.10 ng/ml ?? Current interpretive data was last revised on 2014 Blood specimen (specimen) 09/13/2017 6:07 PM EXERCISE SCIENTIST 09/13/2017 6:22 PM EXERCISE SCIENTIST Narrative [facility] ([place]) - 09/13/2017 7:06 PM EXERCISE SCIENTIST us Sia Delacruz MD LAB BLOOD ORDERABLES Final Resul t Performing Organization Address City/[facility] Co de Phone Number [facility] ([place]) 1 [facility] [place] [address] * XR Chest 1 Vw Portable (09/13/2017 8:58 AM EXERCISE SCIENTIST) Anatomical Region Laterality Modality Body, Chest N/A Computed Radiogr aphy Impressions 09/13/2017 9:39 AM EXERCISE SCIENTIST MINIMAL RIGHT BASILAR ATELECTASIS/SCARRING. Electronically signed by: Harley Bynum M.D Narrative 09/13/2017 9:39 AM EXERCISE SCIENTIST XR CHEST 1 VIEW HISTORY: Dyspnea. TECHNIQUE: Portable AP view. COMPARISON: 05/21/2009. FINDINGS: Patient is somewhat rotated. ??No infiltrate or effusion identified. ??Heart size is normal. ??Minimal pleural thickening/pleural parenchymal scarring in the apical regions. Minimal atelectasis/scarring right lung base. Procedure Note Harley Bynum MD / Provider, MD Blair Sanchez 09/13/2017 XR CHEST 1 VIEW HISTORY: Dyspnea. TECHNIQUE: Portable AP view. COMPARISON: 05/21/2009. FINDINGS: Patient is somewhat rotated. No infiltrate or effusion identified. Heart size is normal. Minimal pleural thickening/pleural parenchymal scarring in the apical regions. Minimal atelectasis/scarring right lung base. IMPRESSION: MINIMAL RIGHT BASILAR ATELECTASIS/SCARRING. Electronically signed by: Harley Bynum M.D Riccardo Bergman DO IMG XR PROCEDURES Final Res ult * Blood culture Blood Peripheral (09/13/2017 8:30 AM EXERCISE SCIENTIST) Report Final Report: No growth [facility] ([place]) Comment:Testing performed by : [facility], [facility], [place]., [address] Blood specimen (specimen) (Peripheral) 09/13/2017 8:30 AM EXERCISE SCIENTIST 09/13/2017 12:15 PM EXERCISE SCIENTIST Narrative [facility] ([place]) - 09/17/2017 4:01 PM EXERCISE SCIENTIST From a different site than #1. Draw Blood cultures before administration of Antibiotics 1. Blood cultures are incubated for 5 days, and cultures are monitored continuously. ??The first negative report is issued within 24 hours of receipt in the laboratory. ??Positive cultures are called in accordance with the critical call policy. 2. The most important factor for detection microbes in the setting of blood stream infection is the volume of blood submitted for culture. ??For pediatric patients, the recommended volume of blood to collect is 1 mL of blood per year of patient age, up to 15 mL, per blood culture set. For adult patients, 20 mL of blood, divided equally between an aerobic and anaerobic blood culture bottle, is recommended for each blood culture set. ??Failure to collect an optimal blood volume can result in false negative blood cultures. 3. Bloodstream infection is more likely to be catheter related if the time to culture positivity of a blood culture drawn through the catheter is at least 2.5 hours faster than the time to positivity of a percutaneous culture of the same volume drawn at the same time, using the same media type. 4. Organism identification and/or antimicrobial susceptibly testing, if reported, [place] [address] 5. For blood cultures with gram-positive cocci, a rapid molecular test for organism identification may be performed using the [employer] Nanosphere Gram Positive Blood Culture Assay. The Nanosphere assay detects microbial DNA in positive blood culture broth via hybridization of target DNA to capture oligonucleotides on a microarray. This assay has been cleared by the [place] Food and Drug Administration and its performance characteristics have been verified by the [facility]. Interpretive data was last revised on December 30, 2016. Riccardo Bergman DO LAB MICROBIOLOGY - GENERAL ORDERABLES Final Result [facility] ([place]) 1 [facility] Department [place] [address] * Blood culture Blood Peripheral (09/13/2017 8:30 AM EXERCISE SCIENTIST) Report Final Report: No growth [facility] ([place]) Comment:Testing performed by : [facility], [facility], [place]., [address] Blood specimen (specimen) (Peripheral) 09/13/2017 8:30 AM EXERCISE SCIENTIST 09/13/2017 12:15 PM EXERCISE SCIENTIST Narrative [facility] ([place]) - 09/17/2017 4:01 PM EXERCISE SCIENTIST Draw Blood cultures before administration of Antibiotics 1. Blood cultures are incubated for 5 days, and cultures are monitored continuously. ??The first negative report is issued within 24 hours of receipt in the laboratory. ??Positive cultures are called in accordance with the critical call policy. 2. The most important factor for detection microbes in the setting of blood stream infection is the volume of blood submitted for culture. ??For pediatric patients, the recommended volume of blood to collect is 1 mL of blood per year of patient age, up to 15 mL, per blood culture set. For adult patients, 20 mL of blood, divided equally between an aerobic and anaerobic blood culture bottle, is recommended for each blood culture set. ??Failure to collect an optimal blood volume can result in false negative blood cultures. 3. Bloodstream infection is more likely to be catheter related if the time to culture positivity of a blood culture drawn through the catheter is at least 2.5 hours faster than the time to positivity of a percutaneous culture of the same volume drawn at the same time, using the same media type. 4. Organism identification and/or antimicrobial susceptibly testing, if reported, [place] [address] 5. For blood cultures with gram-positive cocci, a rapid molecular test for organism identification may be performed using the [employer] Nanosphere Gram Positive Blood Culture Assay. The Nanosphere assay detects microbial DNA in positive blood culture broth via hybridization of target DNA to capture oligonucleotides on a microarray. This assay has been cleared by the [place] Food and Drug Administration and its performance characteristics have been verified by the [facility]. Interpretive data was last revised on December 30, 2016. Riccardo Bergman DO LAB MICROBIOLOGY - GENERAL ORDERABLES Final Result [facility] ([place]) 1 [facility] Department [place] [address] * Influenza A/B antigens, rapid (09/13/2017 8:30 AM EXERCISE SCIENTIST) Flu A Negative Negative [facility] ([place]) Comment: Interpretive Data The results of this procedure whether positive or negative are presumptive. Current interpretive data was last revised on 2014. Flu B Negative Negative [facility] ([place]) Nasopharyngeal 09/13/2017 8: 30 AM EXERCISE SCIENTIST 09/13/2017 8:39 AM EXERCISE SCIENTIST Narrative [facility] ([place]) - 09/13/2017 8:57 AM EXERCISE SCIENTIST Riccardo Bergman DO LAB BODY FLUIDS AND STOOLS ORDERABLES Final Result Performing Organization Address [facility]/ZIP Co de Phone Number [facility] ([place]) 1 [facility] [place] [address] * Lactate, whole blood (09/13/2017 8:30 AM EXERCISE SCIENTIST) Lactate, bld 0.6 0.5 - 2.2 mmol/L [facility] ([place]) Blood specimen (specimen) 09/13/2017 8:30 AM EXERCISE SCIENTIST 09/13/2017 8:38 AM EXERCISE SCIENTIST Narrative [facility] ([place]) - 09/13/2017 8:50 AM EXERCISE SCIENTIST Riccardo Bergman DO LAB BLOOD ORDERABLES Final Result Performing Organization Address [facility] Co de Phone Number [facility] ([place]) 1 [facility] [place] [address] * eGFR (09/13/2017 8:27 AM EXERCISE SCIENTIST) Pathologist [facility] eGFR >60 mL/min/1.7 3 m2 [facility] ([place]) Comment: Interpretive Data Reference Interval Normal ?>/= 90 mL/min/1.73m2 Mildly decreased* ? 60 - 89 mL/min/1.73m2 Mildly to moderately decreased ?45 - 59 mL/min/1.73m2 Moderately to severely decreased ??30 - 44 mL/min/1.73m2 Severely decreased ?15 - 29 mL/min/1.73m2 Kidney Failure ?< 15 ??mL/min/1.73m2 *Relative to young adult level If -British multiply value by 1.16. Estimated glomerular filtration rate is determined by the CKD-EPI equation recommended by the National Kidney Foundation (KDIGO 2012 Clinical Practice Guideline for the Evaluation and Management of Chronic Kidney Disease. Kidney Intnl Suppl Aug 2012;3:1). The CKD-EPI equation should not be used for patients with unstable renal function and has not been validated in children and those over 70. Current interpretive data was last reviewed 2016. Blood specimen (specimen) 09/13/2017 8:27 AM EXERCISE SCIENTIST 09/13/2017 8:38 AM EXERCISE SCIENTIST Narrative [facility] (KAT) - 09/13/2017 8:59 AM EXERCISE SCIENTIST us Riccardo Bergman DO LAB BLOOD ORDERABLES Final Result [facility] (KAT) 1 [facility] Department [place] [address] * Differential, auto (09/13/2017 8:27 AM EXERCISE SCIENTIST) Neutrophil pct 64.9 44.0 - 80.0 % [facility] (KAT) Imm gran pct 0.3 0.0 - 1.0 % [facility] (KAT) Lymphocyte pct 23.8 13.0 - 44.0 % [facility] (KAT) Monocyte pct 10.5 2.0 - 11.0 % [facility] ([facility]AT) Eosinophil pct 0.2 0.0 - 6.0 % [facility] ([facility]AT) Basophil pct 0.3 0.0 - 3.0 % [facility] (KAT) Neutrophil abs 4.31 1.60 - 7.00 K/cumm [facility] ([facility]) Imm gran abs 0.02 0.00 - 0.20 K/cumm [facility] ([facility]AT) Lymphocyte abs 1.58 0.50 - 4.30 K/cumm [facility] (KAT) Monocyte abs 0.70 0.10 - 1.00 K/cumm [facility] (KAT) Eosinophil abs 0.01 0.00 - 0.60 K/cumm [facility] (KAT) Basophil abs 0.02 0.00 - 0.30 K/cumm [facility] (KAT) Blood specimen (specimen) 09/13/2017 8:27 AM EXERCISE SCIENTIST 09/13/2017 8:38 AM EXERCISE SCIENTIST Narrative [facility] (KAT) - 09/13/2017 8:41 AM EXERCISE SCIENTIST Riccardo Bergman DO LAB BLOOD ORDERABLES Final Result Performing Organization Address City/[facility]/ZIP Co de Phone Number [facility] (KAT) 1 [facility] [place] [address] * Protime-INR (09/13/2017 8:27 AM EXERCISE SCIENTIST) PT 11.4 9.5 - 13.0 sec [facility] (KAT) INR 1.01 0.90 - 1.20 [facility] (KAT) Comment: Interpretive Data Recommended ranges for Protime INR: 2.0 - 3.0 Most indications for Warfarin therapy (e.g. Treatment of DVT, PE, bioprosthetic valve replacement, prophylaxis venous thrombosis, atrial fibrillation). 2.5 - 3.5 Mechanical mitral valve or dual mechanical mitral and Aortic valve replacement. Current Interpretive Data was last revised on 2015. Blood specimen (specimen) 09/13/2017 8:27 AM EXERCISE SCIENTIST 09/13/2017 8:38 AM EXERCISE SCIENTIST Narrative [facility] (KAT) - 09/13/2017 8:59 AM EXERCISE SCIENTIST Riccardo Bergman DO LAB BLOOD ORDERABLES Final Result Performing Organization Address City/[facility] Co de Phone Number [facility] (KAT) 1 [facility] [place] [address] * aPTT (09/13/2017 8:27 AM EXERCISE SCIENTIST) aPTT 29.7 25.0 - 37.0 sec DARIMOHAN CA[facility] (KAT) Blood specimen (specimen) 09/13/2017 8:27 AM EXERCISE SCIENTIST 09/13/2017 8:38 AM EXERCISE SCIENTIST Narrative [facility] (KAT) - 09/13/2017 8:59 AM EXERCISE SCIENTIST Riccardo Bergman DO LAB BLOOD ORDERABLES Final Result Performing Organization Address [facility] de Phone Number [facility]ESUS [facility] (KAT) 1 [facility] [place] [address] * Troponin T (09/13/2017 8:27 AM EXERCISE SCIENTIST) [facility] Troponin T <0.01 0.00 - 0.06 ng/mL [facility] CA[facility] (KAT) Comment: Interpretive Data Troponin table: ? Negative ? 0.00-0.06 ng/ml ? Indeterminate ?0.07-0.10 ng/ml ? Consistent with Myocardial Injury ?Greater than 0.10 ng/ml ?? Current interpretive data was last revised on 2014 Blood specimen (specimen) 09/13/2017 8:27 AM EXERCISE SCIENTIST 09/13/2017 8:38 AM EXERCISE SCIENTIST Narrative [facility] (KAT) - 09/13/2017 8:59 AM EXERCISE SCIENTIST Riccardo Bergman DO LAB BLOOD ORDERABLES Final Result Performing Organization Address [facility] Co de Phone Number [facility]ESUS CA[facility]O (KAT) 1 [facility] [place] [address] * (ABNORMAL) D-dimer, quantitative (09/13/2017 8:27 AM EXERCISE SCIENTIST) [facility] D-dimer <150(L) 150 - 230 ng/mL D-DU [facility] (KAT) Comment: Interpretive Data This D-dimer test is approved by the FDA to exclude suspected PE and DVT in outpatients when the result is <230 ng/mL in conjunction with a pre-test probability score of low or moderate using the Wells criteria. Current Interpretive Data was last revised on 2015. Blood specimen (specimen) 09/13/2017 8:27 AM EXERCISE SCIENTIST 09/13/2017 8:38 AM EXERCISE SCIENTIST Narrative [facility] ([facility]AT) - 09/13/2017 8:59 AM EXERCISE SCIENTIST Riccardo Bergman DO LAB BLOOD ORDERABLES Final Result [facility] (KAT) 1 [facility] Department [place] [address] * Comprehensive metabolic panel (09/13/2017 8:27 AM EXERCISE SCIENTIST) Sodium 137 135 - 145 mmol/L [facility] (KAT) Potassium, pl 3.8 3.3 - 4.9 mmol/L [facility] ([facility]) CO2 26 22 - 32 mmol/L [facility] ([facility]) BUN 10 8 - 25 mg/dL [facility] ([facility]) Glucose 107 70 - 199 mg/dL [facility] (KAT) Comment: Interpretive Data Fasting glucose >/= 126 mg/dl is diagnostic for diabetes. ?? Fasting is defined as no caloric intake for at least 8 hours. Fasting glucose between 100 mg/dl to 125 mg/dl is diagnostic of prediabetes. In a patient with classic symptoms of hyperglycemia or hyperglycemic crisis, a random glucose >/= 200 mg/dl is diagnostic for diabetes. In the absence of unequivocal hyperglycemia, results should be confirmed by repeat testing. The classification and Diagnosis of Diabetes Diabetes Care 2017;40 (Suppl. 1):S11. Current interpretive data was last revised 2017. Creatinine 0.68 0.60 - 1.10 mg/dL [facility] (KAT) Calcium 9.1 8.5 - 10.3 mg/dL [facility] ([facility]) Chloride 98 97 - 110 mmol/L [facility] ([facility]) Albumin 4.2 3.5 - 5.0 g/dL [facility] ([facility]) AST 17 10 - 45 Units/L [facility] ([facility]) ALT 14 7 - 45 Units/L [facility] ([facility]) Alk phos 69 40 - 130 Units/L [facility] ([facility]) Bilirubin, total 0.2 0.1 - 1.2 mg/dL [facility] ([facility]) Protein, pl 7.6 6.5 - 8.5 g/dL [facility] ([facility]) Anion gap 13 2 - 15 mmol/L [facility] ([facility]) Blood specimen (specimen) 09/13/2017 8:27 AM EXERCISE SCIENTIST 09/13/2017 8:38 AM EXERCISE SCIENTIST Narrative [facility] (KAT) - 09/13/2017 8:59 AM EXERCISE SCIENTIST us Riccardo Bergman DO LAB BLOOD ORDERABLES Final Result [facility] (KAT) 1 [facility] [place] [address] * Pro B-type natriuretic peptide (09/13/2017 8:27 AM EXERCISE SCIENTIST) NT-proBNP 104 10 - 150 pg/mL [facility] (KAT) Comment: Diagnosis of Congestive Heart Failure: ??Heart Failure Unlikely: All Ages ?Less than 300 pg/ml ??Heart Failure Possible: Less than 50Y ?? 300-450 pg/ml ?50-75 Y ? 300-900 pg/ml ?75-160Y ? 300-1800 pg/ml ?Heart Failure Likely: ?? Less than 50Y ?? Greater than 450 pg/ml ?50-75 Y ? Greater than 900 pg/ml ?75-160 Y ?Greater than 1,800 pg/ml ??Renal Failure: ?All Ages ?Greater than 1,200 pg/ml Current interpretive data was last revised on 2014. Blood specimen (specimen) 09/13/2017 8:27 AM EXERCISE SCIENTIST 09/13/2017 8:38 AM EXERCISE SCIENTIST Narrative [facility] (KAT) - 09/13/2017 9:07 AM EXERCISE SCIENTIST us Riccardo Bergman DO LAB BLOOD ORDERABLES Final Result [facility] (KAT) 1 [facility] [place] [address] * CBC with auto differential (09/13/2017 8:27 AM EXERCISE SCIENTIST) WBC 6.64 3.80 - 9.80 K/cumm [facility] ([facility]) RBC 4.57 3.90 - 5.00 M/cumm [facility] ([facility]) Hgb 13.6 12.1 - 15.1 g/dL [facility] ([facility]) Hct 40.3 36.1 - 44.3 % [facility] ([facility]) MCV 88.2 80.0 - 100.0 fL [facility] ([facility]) MCH 29.8 26.7 - 33.7 pg [facility] ([facility]) MCHC 33.7 32.7 - 36.0 g/dL [facility] ([facility]) RDW CV 13.1 11.5 - 14.6 % [facility] ([facility]) RDW SD 42.3 38.0 - 56.6 fL [facility] ([facility]) Plt 266 140 - 440 K/cumm [facility] ([facility]) MPV 8.8 8.0 - 12.0 fL [facility] ([facility]) NRBC 0.0 0.0 - 0.0 % [facility] (KAT) NRBC abs 0.00 0.00 - 0.00 K/cumm [facility] (KAT) Blood specimen (specimen) 09/13/2017 8:27 AM EXERCISE SCIENTIST 09/13/2017 8:38 AM EXERCISE SCIENTIST Narrative [facility] (KAT) - 09/13/2017 8:41 AM EXERCISE SCIENTIST Riccardo Bergman DO LAB BLOOD ORDERABLES Final Result Performing Organization Address [facility] Co de Phone Number [facility] (KAT) 1 [facility] [place] [address] * ECG 12 lead (09/13/2017 8:18 AM EXERCISE SCIENTIST) Patient age 62 years [facility] Interpretation Text SINUS TACHYCARDIAINTRAVENTRICUL AR CONDUCTION DELAYLEFT VENTRICULAR HYPERTROPHY AND ST-T CHANGEINFERIOR MYOCARDIAL INFARCTIONABNORMAL ECGPREVIOUS TRACIN05/21/2009 02.03compared to previous tracingIVCD is newST changes also new. [facility] Comment:Physician Interprete r Dr. Paulie Odom M.D. Ventricular Rate EKG/Min 107 /min [facility] P Wave Duration 112 ms [facility] QRS-Interval (MSEC) 133 ms [facility] OK-Interval (MSEC) 124 ms [facility] QT Interval 354 ms [facility] QTc 436 ms [facility] QTC Interval ms [facility] P [place] 73 deg [facility] QRS [place] -47 deg [facility] T [place] 98 deg [facility] 09/13/2017 8:18 AM EXERCISE SCIENTIST Riccardo Bergman DO ECG ORDERABLES Final Resul t Performing Organization Address [facility] Co de Phone Number [facility] documented in this encounter Visit Diagnoses Diagnosis Palpitations- Primary Palpitations Elevated TSH Other abnormal blood chemistry documented in this encounter Admitting Diagnoses Diagnosis Palpitations documented in this encounter Administered Medications Inactive Administered Medications - up to 3 most recent administrations Medication Order MAR Action Action Date Dose Rate Site aspirin enteric coated tablet 81 mg 81 mg, oral, Daily, First dose on 09/13/17 at 1315, Do not crush or chew Given 09/13/2017 4:14 PM EXERCISE SCIENTIST 81 mg metoprolol XL (TOPROL-XL) extended release tablet 25 mg 25 mg, oral, Nightly, First dose on 09/14/17 at 2100, Do not crush or chew sodium chloride 0.9% bolus 1,000 mL 1,000 mL, intravenous, at 1,000 mL/hr, Administer over 1 Hours, Once, On 09/13/17 at 0830, For 1 dose New Bag 09/13/2017 8:33 AM EXERCISE SCIENTIST 1,000 mL 100 0 mL/hr documented in this encounter Active and Recently Administered Medications Times are shown in EXERCISE SCIENTIST. Scheduled Medication Order 09/12/2017 09/13/2017 09/14/2017 aspirin enteric coated tablet 81 mg (CANCELED) 81 mg, oral, Daily, First dose on 09/13/17 at 1315, Do not crush or chew 1614 (Given - Provider: Sylvie Cortes RN) enoxaparin (LOVENOX) syringe 40 mg 40 mg, subcutaneous, Daily (for enoxaparin), First dose on 09/14/17 at 2100, Indications: Deep Vein Thrombosis Prevention metoprolol XL (TOPROL-XL) extended release tablet 25 mg 25 mg, oral, Nightly, First dose on 09/14/17 at 2100, Do not crush or chew sodium chloride 0.9% bolus 1,000 mL (COMPLETED) 1,000 mL, intravenous, at 1,000 mL/hr, Administer over 1 Hours, Once, On 09/13/17 at 0830, For 1 dose 0833 (New Bag - Provider: Johana Casillas RN)0933 (Stopped - Provider: Johana Casillas RN) sodium chloride 0.9% flush 0.5-20 mL 0.5-20 mL, intra-catheter, Every 8 hours scheduled, First dose on 09/14/17 at 0100, Flush volume based on line type and size. , Indications: Flushing 0100 (Due)0603 (Not Given - Provider: Thea Lynn RN - Reason: Other - Comment: allowed to sleep) PRN Medication Order 09/12/2017 09/13/2017 09/14/2017 acetaminophen (TYLENOL) tablet 650 mg 650 mg, oral, Every 4 hours PRN, 1st line for pain, fever, fever greater than 38.3 C, Starting on 09/14/17 at 0012, Indications: Fever, Pain ondansetron (ZOFRAN) injection 4 mg 4 mg, intravenous, Every 6 hours PRN, nausea, vomiting, if not tolerating PO, Starting on 09/14/17 at 0012, Indications: Nausea and Vomiting sodium chloride 0.9% flush 0.5-20 mL 0.5-20 mL, intra-catheter, As needed, line care, Starting on 09/14/17 at 0012, Flush volume based on line type and size. Flush before and after each use. , Indications: Flushing documented in this encounter Orders Medications Ordered That Yao ht Not Have Been Administered Count Last Ordered Date First Ordered Date acetaminophen (TYLENOL) tablet 650 mg 1 enoxaparin (LOVENOX) syringe 40 mg 1 2017 metoprolol XL (TOPROL-XL) ex tended release tablet 25 mg 1 09/14/2017 ondansetron (ZOFRAN) injection 4 mg 1 09/14 sodium chloride 0.9% flush 0.5-20 mL 2 08/19 Diet Count Last Ordered Date First Orde red Date ADULT DISCHARGE DIET 1 09/14/2017 Nursing Count Last Ordered Date First Orde red Date DISCHARGE ACTIVITY 1 09/14/2017 DISCHARGE CALL PROVIDER 1 09/14/2017 FOLLOW UP PRIMARY PHYSICIAN 1 09/14/2017 FOLLOW UP WITH PROVIDER 1 09/14/2017 WEIGH PATIENT 2 09/14/2017 09/13/2017 CARDIO RESPIRATORY MONITORING 1 09/13/2017 CONTINUOUS PULSE OXIMETRY 1 09/13/[address] SEQUENTIAL COMPRESSION DEVICE 1 09/13 Consult Count Last Ordered Date First Orde red Date IP CONSULT TO CARDIOLOGY 1 09/14/2017 Admission Count Last Ordered Date First Orde red Date ASSIGN PATIENT STATUS 1 09/13/2017 Discharge Count Last Ordered Date First Orde red Date DISCHARGE PATIENT 1 09/14/2017 CORE MEASURES Count Last Ordered Date First Ord ered Date REASON FOR NO VTE PROPHYLAXIS AT ADMISSION 1 09/13/2017 ADT Patient Update Count Last Ordered Date Firs t Ordered Date ED IP DECISION TO ADMIT 09/13/2017 documented in this encounter
--- OUTSIDE RECORDS SUMMARY | 2024-08-08 10:10 | XMS_ITS | Encounter Summary ---
Author Organization [facility] Healthcare Address [address] [place] [address] Care Team Providers Care Machine Zipper Trimmer Name Role Phone Unavailable Primary Care Provider Unavailabl e Encounter Details Date Type Department Care Team (Late st Contact Info) Description 05/21/2009 2:09 AM CDT - 05/21/2009 3:45 AM CDT Hospital Encounter [facility] Steve Burnham MD [address] [place] [address] Palpitations Social History Tobacco Use Types Packs/Day Years Used Date Smoking Tobacco: Never Assessed Comments Unknown Sex and Gender Information Value Date Recorded Sex Assigned at Not on file Legal Sex Female 1:34 PM 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
== END 2024-08-02 08:24 | disposition home or self-care (01) ==
PROVIDERS: PCP Nurse Practitioner Adult Health; Visit Provider Orthopaedic Surgery
DX: Z01.818 Encounter for other preprocedural examination (principal)
CPT/HCPCS: 36415; 80053; 85027

== ENCOUNTER 2024-11-17 10:40 | Outpatient (CLI) | payer OTHER, SELFPAY ==
--- OUTSIDE RECORDS SUMMARY | 2024-11-17 12:07 | XMS_ITS | Clinical Summary ---
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 Gender Identity Not on file Sexual Orientation Not on file Obstetrics History Last Filed Vital Signs Vital Sign Reading Time Taken Comments Blood Pressure 136/74 02/16/2024 1:28 PM CDT Pulse 63 02/16/2024 1:28 PM CDT Temperature 37 C (98.6 F) 01/16/2024 9:10 AM CDT Respiratory Rate 19 [...] - 2023-2 5 season) 2024 01/19/2021, 12/29/2020 Fall Risk Assessment 01/15/2025 01/16/2024 Influenza Vaccine (Season Ended) 2025 06/19/2023, 06/23/2022, 05/31/2019, Additional history exists Medical Devices Implanted Type Area Crna Device Identifier Shelf Expiration Date Model / Serial / Lot [employer] Vascade Mvp 6-12fr Venous Closure [id number] - [id number] - [id number] Implanted:Qty: 1 on 01/16/2024 by Adam Grover MD at [facility] [employer] 10/30/2025 800-612C-1 0U / [id number] / [id number] [employer] Vascade Mvp 6-12fr Venous Closure [id number] - [id number] - [id number] Implanted:Qty: 1 on 01/16/2024 by Adam Grover MD at [facility] [employer] 07/18/2025 800-612C-1 0U / [id number] / [id number] [employer] Vascade Mvp 6-12fr Venous Closure [id number] - [id number] - [id number] Implanted:Qty: 1 on 01/16/2024 by Adam Grover MD at [facility] [employer] 08/04/2025 800-612C-1 0U / [id number] / [id number] [employer] Device Closure Vascade Od5 Fr Femoral Artery [id number] - [id number] - [id number] Implanted:Qty: 1 on 01/16/2024 by Adam Grover MD at [facility] [employer] 10/21/2025 700-500DX- 05U / [id number] / [id number] [employer] Device Closure Vascade Od5 Fr Femoral Artery [id number] - [id number] - [id number] Implanted:Qty: 1 on 01/16/2024 by Adam Grover MD at [facility] [employer] 10/26/2025 700-500DX- 05U / [id number] / [id number] Insurance Advance Directives For more information, please contact: [phone] * Full Code (Latest Code Status on File) Date Activated Date Inactivated Comments 09/14/2017 12:16 AM 09/14/2017 1:33 PM * Full Code Date Activated Date Inactivated Comments 09/13/2017 12:43 PM 09/14/2017 12:16 AM Care Teams Erp Developer Relationship Specialty Start Date End Date Donnie Sanon MD PCP - General Family Practice 06/23/23 Eun Ballesteros PA [address] [place] [address] Internal Medicine 06/23/23 Crow Soliz DO [address] [facility] [address] [place] [address] Referring Physician Internal Medicine 01/29/24
--- OUTSIDE RECORDS SUMMARY | 2024-11-17 12:07 | XMS_ITS | Clinical Summary ---
Author Organization [facility] Address [address] [address] Phone Care Team Providers Care Geothermal Plant Manager Name Role Phone Unavailable Primary Care Provider [...] (50+ years) (2 of 2 - PCV) 08/18/2014 08/18/2013 Influenza Immunization (#1) 04/18/202405/18, 06/16/2018, 05/27/2017, Additional history exists SARS-COV-2 Immunization ( - season) 2024 01/19/2021, 12/29/2020 Respiratory Syncytial Virus (RSV) Immunization (Adult) (1 - 1-dose 75+ series) 2031 Pneumococcal Immunization Combined Discontinued 08/18/2013 DTaP/Tdap/Td Immunization [...]
--- OUTSIDE RECORDS SUMMARY | 2024-11-17 12:07 | XMS_ITS | Referral Summary ---
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 Gender Identity Not on file Sexual [...] on file Medical Devices Implanted Type Area Gas Operation Manager Device Identifier Shelf Expiration Date Model / Serial / Lot [employer] Vascade Mvp 6-12fr Venous Closure [id number] - [id number] - [id number] Implanted:Qty: 1 on 01/16/2024 by Adam Grover MD at [facility] [employer] 10/30/2025 800-612C-1 0U / [id number] / [id number] [employer] Vascade Mvp 6-12fr Venous Closure [id number] - [id number] - [id number] Implanted:Qty: 1 on 01/16/2024 by Adam Grover MD at [facility] [employer] 07/18/2025 800-612C-1 0U / [id number] / [id number] [id number] [employer] Vascade Mvp 6-12fr Venous Closure [id number] - [id number] - [id number] Implanted:Qty: 1 on 01/16/2024 by Adam Grover MD at [facility] [employer] 08/04/2025 800-612C-1 0U / [id number] / [id number] [employer] Device Closure Vascade Od5 Fr Femoral Artery [id number] - [id number] - [id number] Implanted:Qty: 1 on 01/16/2024 by Adam Grover MD at [facility] [employer] 10/21/2025 700-500DX- 05U / [id number] / [id number] [id number] [employer] Device Closure Vascade Od5 Fr Femoral Artery [id number] - [id number] - [id number] Implanted:Qty: 1 on 01/16/2024 by Adam Grover MD at [facility] [employer] 10/26/2025 700-500DX- 05U / [id number] / [id number] Insurance [facility] Advance Directives For more information, please contact: [phone] * Full Code (Latest Code Status on File) Date Activated Date Inactivated Comments 09/14/2017 12:16 AM 09/14/2017 1:33 PM * Full Code Date Activated Date Inactivated Comments 09/13/2017 12:43 PM 09/14/2017 12:16 AM Care Teams Registered Dietitian Relationship Specialty Start Date End Date Donnie Sanon MD PCP - General Family Practice 06/23/23 Eun Ballesteros PA [address] [facility] [address] [place] [address] Internal Medicine 06/23/23 Crow Soliz DO [address] [facility] [address] [place] [address] Referring Physician Internal Medicine 01/29/24
[2024-11-17 20:08] LABS: Alanine Aminotransferase 28 U/L (6-35); Albumin Level 4.4 g/dL (3.5-5.1); Alkaline Phosphatase 95 U/L (38-126); Anion Gap 7 mmol/L (4-12); Aspartate Amino Transferase 59 U/L (14-36); Bilirubin,Total 0.4 mg/dL (0.2-1.3); Blood Urea Nitrogen 15 mg/dL (7-17); Calcium 9.6 mg/dL (8.4-10.2); Carbon Dioxide 31 mmol/L (22-30); Chloride 101 mmol/L (98-107); Cholesterol 188 mg/dL (0-200); Estimated Glomerular Filt Rate > 60; Glucose 93 mg/dL (65-110); HDL Direct 76 mg/dL; Potassium 4.4 mmol/L (3.4-5.0); Sodium 139 mmol/L (137-145); Triglycerides 113 mg/dL (<150)
[2024-11-17 20:19] LABS: LDL Cholesterol Direct 78 mg/dL
== END 2024-11-17 10:41 | disposition home or self-care (01) ==
LOC: ANHBWCLAB 10:41
PROVIDERS: PCP Nurse Practitioner Adult Health; Visit Provider Nurse Practitioner Adult Health
DX: E78.5 Hyperlipidemia, unspecified (principal)
CPT/HCPCS: 36415; 80053; 80061

== ENCOUNTER 2024-12-29 12:24 | Outpatient (CLI) | payer OTHER, SELFPAY ==
--- NOTE | ~2024-12-29 | DEXA_ITS ---
Bone Density Report Name: MEGAN FIERRO Age: 69 Sex: Female Ethnicity: White Date of : 1955 Indication: osteopenia; prior fracture; Referring Provider: DIONNE JOE Study: Bone densitometry was performed. Exam Date: December 29, 2024 Accession number: [id number] Bone Density: Region BMD T-score Z-score Classification AP Spine(L1-L4) 0.792 -2.3 -0.3 Osteopenia Femoral Neck (Left) 0.640 -1.9 -0.2 Osteopenia Total Hip (Left) 0.797 -1.2 0.2 Osteopenia Femoral Neck (Right) 0.663 -1.7 0.0 Osteopenia Total Hip (Right) 0.787 -1.3 0.2 Osteopenia Total Hip Mean 0.792 -1.3 0.2 Osteopenia World Health Organization criteria for BMD impression classify patients as: Normal (T-score at or above -1.0), Osteopenia (T-score between -1.0 and -2.5), or Osteoporosis (T-score at or below -2.5). 10-year Fracture Risk(1): Major Osteoporotic Fracture 17% Hip Fracture 2.7% Reported Risk Factors: [place] (), Neck BMD=0.640, BMI=26.4, previous fracture (1) FRAX(R) Version 3.08. Fracture probability calculated for an untreated patient. Fracture probability may be lower if the patient has received treatment. Previous Exams: -- Region Exam Age BMD T-score BMD Change BMD Change Date g/cm2 vs Baseline vs Previous -- AP Spine (L1-L4) 12/29/2024 69 0.792 -2.3 -0.6% -0.6% 02/04/2022 66 0.797 -2.3 Total Hip(Left) 12/29/2024 69 0.797 -1.2 -3.7%* -3.7%* 02/04/2022 66 0.827 -0.9 Total Hip(Right) 12/29/2024 69 0.787 -1.3 -7.5%* -7.5%* 02/04/2022 66 0.851 -0.7 -- *Denotes significance at 95% confidence level, LSC for AP Spine = 0.022 g/cm2, LSC for Total Hip = 0.027 g/cm2 Clinical Information Provided by Patient: Has had a low trauma fracture Has used the following medications: Vitamin D, Calcium Patient maximum height was 61.1 Menopause Age: 50 No regular weight bearing exercise Drinks caffeinated beverages Onset of menses at age 14 Number of children 4 Impression: The patient has low bone mass, based on the Total Spine T-score. The patient has an estimated ten-year risk of hip fracture of 2.7% and an estimated ten-year risk of major fracture of 17%, based on the WHO FRAX algorithm. The patient has risk factors, including: previous fracture. The BMD for the Total Hip(Left) decreased, changing by -3.7% since the last DXA exam. The BMD for the Total Hip(Right) decreased, changing by -7.5% since the last DXA exam. Discussion: BONE DENSITY IS LOW AT ONE OR MORE SKELETAL SITES. This patient's lowest T-score is low at one or more skeletal sites. It meets the World Health Organization's (WHO) criteria for “low bone mass” (T-score between -1.0 and -2.5). The patient's 10-year risk of fracture as calculated by FRAX is less than the threshold where pharmacological therapy is recommended by the National Osteoporosis Foundation (NOF). However, all treatment decisions require clinical judgment and consideration of individual patient factors, including patient preferences, comorbidities, previous drug use, risk factors not captured in the FRAX model (e.g., frailty, falls, vitamin D deficiency, increased bone turnover, interval significant decline in bone density) and possible under or overestimation of fracture risk by FRAX. The patient should follow a healthful lifestyle (good nutrition with adequate calcium and vitamin D, and appropriate weight-bearing exercise). Follow-Up: Consider repeating this study in 2 years to reassess this patient's status, or sooner if there is some new clinical indication. Reported by: VICTORINO on 01/05/2025 8:49:00 AM. Reviewed, dictated and finalized at location AJaneth JOYNER
== END 2024-12-29 12:25 | disposition home or self-care (01) ==
LOC: MICIMG 12:24
PROVIDERS: PCP Nurse Practitioner Adult Health; Visit Provider Nurse Practitioner Adult Health
DX: M85.89 Other specified disorders of bone density and structure, multiple sites (principal); Z78.0 Asymptomatic menopausal state
CPT/HCPCS: 77080

== ENCOUNTER 2025-05-17 13:32 | Outpatient (CLI) | payer OTHER, SELFPAY ==
--- NOTE | ~2025-05-17 | MM_ITS ---
EXAMINATION: MM screening [facility] BI w pavithra HISTORY: Screening TECHNIQUE: Craniocaudal and mediolateral oblique 3-D tomosynthesis images were obtained and synthetic 2-D images were generated. CAD analysis was submitted and interpreted. COMPARISON: Comparison to multiple prior studies sequentially, with oldest reviewed study dated 02/04/2022. BREAST PARENCHYMAL COMPOSITION: Not dense: There are scattered areas of fibroglandular density. FINDINGS: There is a subareolar mass of the right breast. The left breast is stable without evidence for malignancy. IMPRESSION: 1. Subareolar mass of the right breast. 2. Recommend targeted right breast ultrasound. BI-RADS Category 0: Incomplete: Needs additional imaging evaluation. Reviewed, dictated and finalized at location B.
== END 2025-05-17 13:33 | disposition home or self-care (01) ==
LOC: MICIMG 13:33
PROVIDERS: PCP Nurse Practitioner Adult Health; Visit Provider Nurse Practitioner Adult Health
DX: Z12.31 Encounter for screening mammogram for malignant neoplasm of breast (principal); N63.41 Unspecified lump in right breast, subareolar; R92.8 Other abnormal and inconclusive findings on diagnostic imaging of breast
CPT/HCPCS: 77063; 77067

== ENCOUNTER 2025-06-29 08:39 | Outpatient (CLI) | payer OTHER, SELFPAY ==
--- NOTE | ~2025-06-29 | US_ITS ---
US breast RT limited 06/29/2025 08:58 Indication: Right breast mass seen on recent examination. Procedure: Limited right breast ultrasound Comparison: Mammogram dated 05/17/2025 Findings: At 11:00, 2 cm from the nipple there is a 6 mm cyst corresponding to the mass seen on recent mammogram. No suspicious masses are identified to suggest malignancy. There are mildly prominent periareolar ducts. Impression: 1: No sonographic evidence for malignancy. Benign cyst corresponds to the mammographic finding. Routine yearly screening mammogram and regular clinical breast examination are recommended. BI-RADS CATEGORY 2 - BENIGN FINDINGS Reviewed, dictated and finalized at location B. ON OPERATOR Impression: 1: No sonographic evidence for malignancy. Benign cyst corresponds to the mammo graphic finding. Routine yearly screening mammogram and regular clinical breast examination are recommended. BI-RADS CATEGORY 2 - BENIGN FINDINGS
== END 2025-06-29 08:40 | disposition home or self-care (01) ==
LOC: MICIMG 08:40
PROVIDERS: PCP Nurse Practitioner Adult Health; Visit Provider Nurse Practitioner Adult Health
DX: R92.8 Other abnormal and inconclusive findings on diagnostic imaging of breast (principal); N60.01 Solitary cyst of right breast
CPT/HCPCS: 76642